=== PATIENT | male | born 1965 | race Native Hawaiian/Other Pacific Islander ===

== ENCOUNTER 2022-06-28 02:40 | Emergency (ER) | payer MEDICARE ==
[~2022-06-28] VITALS: Ht 157.5 cm; Wt 54.4 kg
[2022-06-28] MEDS ORDERED: MODA200 PO (02:58)
[2022-06-28] MEDS ORDERED: LISI5 PO (02:58)
[2022-06-28] MEDS ORDERED: ABILIFY MYCITE5 M2 PO (02:59)
[2022-06-28] MEDS ORDERED: BACLOFEN10 M1 PO (02:59)
[2022-06-28] MEDS ORDERED: ESCI10 PO (02:59)
== END 2022-06-28 06:19 | disposition home or self-care (01) ==
LOC: ER 02:40
DX: T17.928A Food in respiratory tract, part unspecified causing other injury, initial encounter (principal); X58.XXXA Exposure to other specified factors, initial encounter; G35 Multiple sclerosis; Z88.0 Allergy status to penicillin; Z79.899 Other long term (current) drug therapy
CPT/HCPCS: 71045

== ENCOUNTER 2024-07-12 09:55 | Inpatient (IN) | payer MEDICARE, OTHER ==
[2024-07-12] VITALS (17 sets, daily range): BP systolic 97–124; BP diastolic 63–93
[~2024-07-12] VITALS: Ht 172.7 cm; Wt 45.8 kg
[~2024-07-12 09:55] MED LIST: ABILIFY MYCITE5 M2 PO; BACLOFEN10 M1 PO; ESCI10 PO; LISI5 PO; MODA200 PO
[2024-07-12] MEDS ORDERED: NS 1,000 ML IV SCH ×3 (10:30→19:00)
[2024-07-12 10:52] LABS: BASOPHILS ABSOLUTE AUTO 0.05 K/mm3 (0.00-0.23); BASOPHILS PERCENT AUTO 0 % (0-2); EOSINOPHILS PERCENT AUTO 0 % (0-6); Hematocrit 47.3 % (37.0-53.0); Hemoglobin 14.7 g/dL (13.5-17.5); IMMATURE GRAN ABSOLUTE AUTO 0.14 K/mm3 (0.00-0.10); IMMATURE GRAN PERCENT AUTO 1 % (0-1); LYMPHOCYTES ABSOLUTE AUTO 0.77 K/mm3 (0.84-5.20); LYMPHOCYTES PERCENT AUTO 4 % (21-46); MONOCYTES ABSOLUTE AUTO 0.49 K/mm3 (0.16-1.47); MONOCYTES PERCENT AUTO 2 % (4-13); Mean Corpuscular HGB 27.8 pg (26.0-34.0); Mean Corpuscular HGB Conc 31.1 g/dL (31.5-36.5); Mean Corpuscular Volume 90 fL (80-100); Mean Platelet Volume 8.7 fL (9.1-12.4); NEUTROPHILS ABSOLUTE AUTO 18.56 K/mm3 (1.96-9.15); NEUTROPHILS PERCENT AUTO 93 % (41-73); Platelet Count 458 K/mm3 (150-400); RDW Coefficient Variation 14.5 % (11.7-14.2); RDW Standard Deviation 47.2 fL (35.1-46.3); Red Blood Cell Count 5.28 M/mm3 (4.30-5.90); White Blood Cell Count 20.01 K/mm3 (4.00-11.30)
[2024-07-12] MEDS ORDERED: Lactated Ringer's 1,000 ML IV ONE ×2 (11:10→11:50)
[2024-07-12] MEDS ORDERED: Cefepime HCl 2,000 MG in NS 100 ML IV ONE (11:10)
[2024-07-12] MEDS ORDERED: VANCOMYCIN HCL IV ONE (11:15)
[2024-07-12] MEDS ORDERED: NS IV ONE (11:15)
[2024-07-12 11:28] LABS: Albumin, Blood 3.1 g/dL (3.4-5.0); Albumin/Globulin Ratio 0.7 (0.8-1.8); Bilirubin, Total 0.7 mg/dL (0.1-1.0); Bun/Creatinine Ratio 19.7 (12.0-20.0); Calcium, Blood 10.1 mg/dL (8.5-10.1); Creatinine, Blood 2.13 mg/dL (0.60-1.20); Globulin, Blood 4.6 g/dL (2.2-4.0); Magnesium, Blood 4.1 mg/dL (1.6-2.4); Potassium, Blood 5.3 mmol/L (3.5-5.5); Total Protein, Blood 7.7 g/dL (6.4-8.2)
[2024-07-12] MEDS ORDERED: Vancomycin HCL 1,500 MG in NS 250 ML IV ONE (11:30)
[2024-07-12] MEDS ORDERED: ZINC50 M3 PO ×2 (12:17)
[2024-07-12] MEDS ORDERED: ERGO50000 PO ×2 (12:18)
[2024-07-12] MEDS ORDERED: ESCI20 PO ×2 (12:19)
[2024-07-12 12:29] LABS: Source, Urine Straight Cath
[2024-07-12 12:45] LABS: Appearance, Urine Turbid (Clear); Blood, Urine 4+ (Neg); Color, Urine Amber (P-Yellow); Glucose Qualitative, Urine Neg (Neg); Ketones, Urine 2+ (Neg); Leukocyte Esterase, Urine 2+ (Neg); Nitrite, Urine Pos (Neg); Protein, Urine 3+ (Neg); Urobilinogen, Urine 2+ (Normal)
[2024-07-12 13:16] LABS: Bilirubin, Urine 1+ (Neg)
[2024-07-12 13:17] LABS: Amorphous Mod (0-Heavy); Squamous Epithelial Cells Many /hpf (Few)
[2024-07-12 13:18] LABS: Calcium Oxalate Crystals Few /hpf; Transitional Epithelial Cells Mod /hpf (0-Rare); White Blood Cells, Urine 25-50 /hpf (0-5)
[2024-07-12 13:19] LABS: Bacteria Mod /hpf
[2024-07-12] MEDS ORDERED: Vasopressin 20 UNITS in NS 100 ML IV SCH (13:20)
[2024-07-12] MEDS ORDERED: propofoL 100 ML IV SCH (13:25)
[2024-07-12] MEDS ORDERED: FLU VACC TS2024-25(6MOS UP)/PF 45 MCG/0.5 ML SYRINGE IM SCH (14:45)
[2024-07-12] MEDS ORDERED: MetroNIDAZOLE 500MG/NS 100 ml 100 ML IV SCH (15:00)
[2024-07-12] MEDS ORDERED: Etomidate 2MG / ML 10ML Vial IV ONE (15:41)
[2024-07-12] MEDS ORDERED: Rocuronium Bromide 10 MG/ML 5ML Injection IV ONE ×2 (15:41→17:44)
[2024-07-12] MEDS ORDERED: Midazolam HCl 1MG / ML 2ML Vial IV ONE (15:41)
[2024-07-12] MEDS ORDERED: Ketamine HCl 100 MG / ML 5ML Vial IV ONE (17:44)
[2024-07-12] MEDS ORDERED: Cetylpyridinium Chloride 1 EA MISC MT SCH (18:20)
--- NOTE | 2024-07-12 18:27 | NUR ---
NUMEROUS PRESSURE INJURIES AND SITES OF SKIN DISPURTION. PHOTOGRAPHED AND PLACED IN CHART. DR CLEMENTS NOTIFIED.
[2024-07-12] MEDS ORDERED: Albumin (Human) 25gm/100ml 100 ML IV SCH (18:30)
[2024-07-12] MEDS ORDERED: Pantoprazole Sodium 40 MG Injection IV SCH (19:00)
[2024-07-12] MEDS ORDERED: Naphazoline/Phenir Opth Soln 15 ml BOTHEYES SCH (19:00)
--- NOTE | 2024-07-12 19:28 | NUR ---
SUMMARY: PT ARRIVED TO ICU AT 1634, PT ON VENTILATOR 16/450/5/25%, INCONTINENT OF LARGE AMOUNT OF LIQUID BROWN STOOL AROUND THE RECTAL TUBE. PT WITH MULTIPLE AREAS OF SKIN BREAKDOWN, PICTURES TAKEN. RECTAL TUBE REPLACED, PT GIVEN CHG BATH. NOREPINEPHRINE @ 10MCG, VASO @ 0.04, PROPOFOL @ 20MCG ALL VIA RIGHT IJ CENTRAL LINE. PIV IN ИВАН AND LFA, BOTH PATENT, FLUSH WELL. BRYANT WITH DARK CEDRIC RETURN. IN TO BEDSIDE, ANXIOUS, CONCERNED. EDUCATION GIVEN WITH ADMISSION QUESTIONS. HAS CONCERNS FOR DISCHARGE WITH TRAVEL, FOOD INSECURITY, ASSISTANCE WITH CARE FOR HER . ALBUMIN STARTED PER , DISCUSSION WITH ABOUT FEEDING TUBE PLACEMENT IN THE NEAR FUTURE. REPORT TO ALEX CLARK.
[2024-07-12] MEDS ORDERED: Cefepime HCl 1,000 MG in NS 100 ML IV SCH (21:00)
[2024-07-12 21:18] LABS: Campylobacter Sp Not Detected (NOT DETECT); Enteroaggregative E. coli-EAEC Detected (NOT DETECT); Enteropathogenic E. coli-EPEC Not Detected (NOT DETECT); Enterotoxigenic E. coli-ETEC Not Detected (NOT DETECT); Plesiomonas Shigelloides Not Detected (NOT DETECT); Salmonella Sp Not Detected (NOT DETECT); Vibrio Cholerae Not Detected (NOT DETECT); Vibrio Sp Not Detected (NOT DETECT); Yersinia Enterocolitica Not Detected (NOT DETECT)
[2024-07-12 21:19] LABS: Adenovirus F 40/41 Not Detected (NOT DETECT); Astrovirus Not Detected (NOT DETECT); Cryptosporidium Not Detected (NOT DETECT); Cyclospora Cayetanensis Not Detected (NOT DETECT); E. Coli O157 Not Detected (NOT DETECT); Entamoeba Histolytica Not Detected (NOT DETECT); Giardia Lamblia Not Detected (NOT DETECT); Norovirus GI/GII Not Detected (NOT DETECT); Rotavirus A Not Detected (NOT DETECT); Sapovirus Not Detected (NOT DETECT); Shiga Toxin-prod E. coli-STEC Not Detected (NOT DETECT); Shigella/Enteroin E. coli-EIEC Not Detected (NOT DETECT)
[2024-07-13] VITALS (59 sets, daily range): BP systolic 65–122; BP diastolic 48–79
[2024-07-13] MEDS ORDERED: Hydrogen Peroxide 1.5 % Solution MT SCH
--- NOTE | 2024-07-13 00:21 | NUR ---
THIS RN ASSUMED CARE OF PT AT 1900. PT IS VENTILATED AND SEDATED, PT WAS ABLE TO FOLLOW COMMANDS INTERMITTENTLY AND RESPOND TO PAINFUL STIMULI. PT HEART RATE IS IN THE 70-80s, BLOOD PRESSURE STABLE AND UNABLE TO ASSESS CHEST PAIN DUE TO SEDATION, PT ON DIRECTOR OF CREATIVE SERVICES. PT SOUNDS CLEAR, ON VENTILATOR TO PROTECT AIRWAY, SATTING >95%. PT DOES HAVE NUMEROUS PRESSURE WOUNDS, PICTURES ARE IN THE CHART AND PROVIDER IS AWARE. PT HAS OG TUBE TO LIS, COFFEE GROUND EMESIS IS NOTED IN THE TUBE, DR. CHÁVEZ NOTIFIED AND SAID TO SEE WHAT MORNING LABS COME BACK . NO OTHER INTERVENTIONS AT THIS TIME. PLAN OF CARE CONTINUED.
--- NOTE | 2024-07-13 01:05 | NUR ---
DR. CHÁVEZ WAS NOTIFIED PT WAS HAVING COFFEE GROUND EMESIS THROUGH OG TUBE, AND PT TESTED POSITIVE E.COLI IN STOOL. PROVIDER NOTIFIED, PROVIDER WILL LOOK AT PT CHART AND MAKE CHANGES NEEDED.
[2024-07-13 03:49] LABS: Hematocrit 27.3 % (37.0-53.0); Hemoglobin 9.1 g/dL (13.5-17.5); Mean Corpuscular HGB 27.7 pg (26.0-34.0); Mean Corpuscular HGB Conc 33.3 g/dL (31.5-36.5); Mean Platelet Volume 9.1 fL (9.1-12.4); Platelet Count 212 K/mm3 (150-400); RDW Coefficient Variation 14.5 % (11.7-14.2); RDW Standard Deviation 43.7 fL (35.1-46.3); Red Blood Cell Count 3.28 M/mm3 (4.30-5.90)
[2024-07-13 04:02] LABS: Mean Corpuscular Volume 83 fL (80-100)
[2024-07-13 04:11] LABS: BAND PERCENT MAN 26 % (0-8); BASOPHILS PERCENT MAN 0 % (0-2); EOSINOPHILS PERCENT MAN 0 % (0-6); LYMPHOCYTES ABSOLUTE MAN 0.93 K/mm3 (0.84-5.20); LYMPHOCYTES PERCENT MAN 8 % (21-46); MONOCYTES ABSOLUTE MAN 0.11 K/mm3 (0.16-1.47); MONOCYTES PERCENT MAN 1 % (4-13); MYELOCYTE ABSOLUTE MAN 0.23 K/mm3 (0.00-0.00); MYELOCYTE PERCENT MAN 2 % (0-0); NEUTROPHILS ABSOLUTE MAN 10.41 K/mm3 (1.96-9.15); SEG NEUTROPHILS PERCENT MAN 63 % (41-73); TOTAL CELLS COUNTED 100
[2024-07-13 04:42] LABS: Alanine Aminotransfer (ALT/SGP 246 U/L (12-78); Albumin, Blood 3.7 g/dL (3.4-5.0); Albumin/Globulin Ratio 1.9 (0.8-1.8); Alk Phos 70 U/L (50-136); Anion Gap 13 mmol/L (3-11); Aspartate Aminotrans (AST/SGOT 270 U/L (12-37); Bilirubin, Total 0.6 mg/dL (0.1-1.0); Blood Urea Nitrogen 34 mg/dL (8-24); Bun/Creatinine Ratio 37.1 (12.0-20.0); CO2, Blood 17 mmol/L (21-32); Calcium, Blood 7.9 mg/dL (8.5-10.1); Chloride, Blood 119 mmol/L (98-108); Creatinine, Blood 0.92 mg/dL (0.60-1.20); Glomerular Filtration Rate 97 (60-); Glucose, Blood 114 mg/dL (70-99); Potassium, Blood 3.4 mmol/L (3.5-5.5); Sodium, Blood 146 mmol/L (136-145); Total Protein, Blood 5.7 g/dL (6.4-8.2); Vancomycin, Random 19.6 ug/mL
[2024-07-13] MEDS ORDERED: Potassium Chl 20MEQ/Water100ML 100 ML IV SCH (04:55)
[2024-07-13] MEDS ORDERED: Potassium Chloride 40 MEQ in NS 250 ML IV ONE (05:00)
[2024-07-13] MEDS ORDERED: Acetaminophen 160MG / 5ML 10.15 UDC PT PRN (06:00)
--- NOTE | 2024-07-13 06:01 | NUR ---
PT SUMMARY PT IS LAYING IN BED, WITH FAMILY AT BEDSIDE. PT HGB DID GO FROM 14.7 TO 9.[address] CHÁVEZ NOTIFIED, REPEAT H&H TO BE DONE AT 0900. PT POTASSIUM CAME BACK 3.4, PROVIDER ORDERED 40MEQ OF POTASSIUM IV. PT TEMPERATURE IS ALSO STARTING TO RISE, PROVIDER NOTIFIED, NEW ORDERS PLACED. NO OTHER ACUTE EVENTS TO REPORT OVERNIGHT. PLAN OF CARE CONTINUED.
[2024-07-13] MEDS ORDERED: Enoxaparin 30 MG/0.3 ML SYR SC SCH (09:00)
[2024-07-13] MEDS ORDERED: Vancomycin HCL 500 MG in NS 250 ML IV SCH (09:00)
[2024-07-13 09:12] LABS: Hematocrit 26.8 % (37.0-53.0); Hemoglobin 8.9 g/dL (13.5-17.5); Mean Corpuscular HGB 28.2 pg (26.0-34.0); Mean Corpuscular HGB Conc 33.2 g/dL (31.5-36.5); Mean Corpuscular Volume 85 fL (80-100); Mean Platelet Volume 9.5 fL (9.1-12.4); Platelet Count 215 K/mm3 (150-400); RDW Coefficient Variation 14.6 % (11.7-14.2); RDW Standard Deviation 44.9 fL (35.1-46.3); Red Blood Cell Count 3.16 M/mm3 (4.30-5.90); White Blood Cell Count 12.28 K/mm3 (4.00-11.30)
[2024-07-13] MEDS ORDERED: NS 1,000 ML IV SCH (11:00)
[2024-07-13] MEDS ORDERED: Cefepime HCl 1,000 MG in NS 100 ML IV ONE (12:30)
[2024-07-13] MEDS ORDERED: Midodrine 5 MG Tab PT SCH (13:00)
--- NOTE | 2024-07-13 15:00 | NUR ---
SUMMARY: DOGISSELLHOFF PLACED @ 1430, PT LIBERATED FROM THE VENTILATOR. PROPOFOL OFF. PT TOLERATED PLACEMENT OF NGT AND EXTUBATION. HE REMAINS SOMNOLENT, MOANS A BIT, BACK TO ROOM, EXCITED TO SEE HIM. NC ON @ 2L, SATS 100%.
[2024-07-13] MEDS ORDERED: Cefepime HCl 2,000 MG in NS 100 ML IV SCH (21:00)
--- NOTE | 2024-07-13 22:54 | NUR ---
THIS RN ASSUMED CARE OF PT AT 1900. PT IS LAYING IN BED PEACEFULLY, WITH FAMILY PRESENT AT BEDSIDE. PT IS RESPONDING TO PAINFUL STIMULI, NOT SPEAKING MANY WORDS, BUT ABLE TO FOLLOW COMMANDS. PT HEART RATE IS IN THE 60s, BLOOD PRESSURE 95/73, ON 6 OF LEVO. PT SOUNDS CLEAR/DIMINISHED ON 2L NC SATTING >95%, NO OBJECTIVE S/S OF SHORTNESS OF BREATHE. PT CENTRAL LINE CLEAN/DRY/INTACT. PT BRYANT DRAINING TO GRAVITY. NO OTHER INTERVENTIONS AT THIS TIME, PLAN OF CARE CONTINUED.
[2024-07-13] MEDS ORDERED: D5W-1/2NS 1,000 ML IV SCH (23:35)
[2024-07-14] VITALS (35 sets, daily range): BP systolic 68–124; BP diastolic 50–84
--- NOTE | 2024-07-14 00:04 | NUR ---
PT BLOOD SUGAR 70, NOTIFIED, NEW ORDER OF D51/2 NS AT 75ML/HR X1 BAG, PT SHOULD BE STARTING TUBE FEEDINGS IN THE AM.
--- NOTE | 2024-07-14 05:19 | NUR ---
PT SUMMARY PT IS LAYING IN BED RESTING PEACEFULLY WITH FAMILY MEMBER AT BEDSIDE. NO NEW ACUTE EVENTS TO REPORT OVERNIGHT. PLAN OF CARE CONTINUED.
[2024-07-14 05:59] LABS: Hematocrit 26.3 % (37.0-53.0); Hemoglobin 8.6 g/dL (13.5-17.5); Mean Corpuscular HGB 27.9 pg (26.0-34.0); Mean Corpuscular HGB Conc 32.7 g/dL (31.5-36.5); Mean Corpuscular Volume 85 fL (80-100); Mean Platelet Volume 9.9 fL (9.1-12.4); Platelet Count 201 K/mm3 (150-400); RDW Coefficient Variation 15.1 % (11.7-14.2); RDW Standard Deviation 46.9 fL (35.1-46.3); Red Blood Cell Count 3.08 M/mm3 (4.30-5.90); White Blood Cell Count 10.85 K/mm3 (4.00-11.30)
[2024-07-14 06:28] LABS: BAND PERCENT MAN 23 % (0-8); NEUTROPHILS ABSOLUTE MAN 9.54 K/mm3 (1.96-9.15); SEG NEUTROPHILS PERCENT MAN 65 % (41-73); TOTAL CELLS COUNTED 100
[2024-07-14 06:29] LABS: BASOPHILS PERCENT MAN 0 % (0-2); EOSINOPHILS PERCENT MAN 1 % (0-6); LYMPHOCYTES ABSOLUTE MAN 0.86 K/mm3 (0.84-5.20); LYMPHOCYTES PERCENT MAN 8 % (21-46); MONOCYTES ABSOLUTE MAN 0.32 K/mm3 (0.16-1.47); MONOCYTES PERCENT MAN 3 % (4-13)
[2024-07-14 06:33] LABS: Albumin, Blood 2.5 g/dL (3.4-5.0); Anion Gap 10 mmol/L (3-11); Blood Urea Nitrogen 17 mg/dL (8-24); Bun/Creatinine Ratio 30.4 (12.0-20.0); CO2, Blood 17 mmol/L (21-32); Calcium, Blood 7.8 mg/dL (8.5-10.1); Chloride, Blood 121 mmol/L (98-108); Creatinine, Blood 0.56 mg/dL (0.60-1.20); Glomerular Filtration Rate 115 (60-); Glucose, Blood 105 mg/dL (70-99); Phosphorus, Blood 1.2 mg/dL (2.5-4.9); Potassium, Blood 2.8 mmol/L (3.5-5.5); Sodium, Blood 145 mmol/L (136-145)
[2024-07-14 08:53] LABS: Vancomycin, Trough 14.2 ug/mL (5.0-10.0)
[2024-07-14] MEDS ORDERED: Enoxaparin 40 MG/0.4 ML SYR SC SCH (09:00)
[2024-07-14] MEDS ORDERED: Potassium Phosphate Dibasic 30 MM in Dextrose 5% 500 ML IV ONE (12:20)
[2024-07-14] MEDS ORDERED: Potassium Chloride 20 MEQ/15 ML UDC PT SCH (13:00)
[2024-07-14] MEDS ORDERED: D5W-1/2NS 1,000 ML IV SCH (13:20)
[2024-07-14] MEDS ORDERED: Cefepime HCl 2,000 MG in NS 100 ML IV SCH (16:00)
--- NOTE | 2024-07-14 21:27 | NUR ---
THIS RN ASSUMED CARE OF PT AT 1900. PT IS ALERT AND ORIENTED X2, ABLE TO SAY NAME AND IS AWARE OF WHAT IS GOING ON. PT HEART RATE IS IN THE 60s, BLOOD PRESSURE STABLE AT 90/68, LEVO HAS BEEN TITRATED OFF, PT DENIES CHEST PAIN. PT SOUNDS CLEAR/DIMINISHED AND IS ON RA AND SATTING >95%, PT DENIES SHORTNESS OF BREATHE. PT HAS RECTAL TUBE DRAINING TO GRAVITY AND BRYANT DRAINING TO GRAVITY. PT CENTRAL LINE CLEAN/DRY/INTACT. PT ANSWERS BETTER TO YES/NO QUESTIONS AND DROWSY. NO OTHER INTERVENTIONS AT THIS TIME. TUBE FEEDS ARE GOING AT 10ML/HR OR TRICKLE FEEDS. POSSIBLE PEG TUBE PLACEMENT TOMORROW. PLAN OF CARE CONTINUED.
[2024-07-15] VITALS (25 sets, daily range): BP systolic 77–134; BP diastolic 60–90
[2024-07-15] MEDS ORDERED: NS 250 ML IV SCH (02:15)
[2024-07-15] MEDS ORDERED: NS 250 ML IV ONE (02:15)
[2024-07-15] MEDS ORDERED: Midodrine 5 MG Tab PT ONE (02:15)
[2024-07-15 03:58] LABS: Albumin, Blood 2.4 g/dL (3.4-5.0); Bilirubin, Total 0.4 mg/dL (0.1-1.0); Bun/Creatinine Ratio 22.9 (12.0-20.0); Calcium, Blood 7.7 mg/dL (8.5-10.1); Creatinine, Blood 0.39 mg/dL (0.60-1.20); Globulin, Blood 2.4 g/dL (2.2-4.0); Magnesium, Blood 1.8 mg/dL (1.6-2.4); Phosphorus, Blood 1.2 mg/dL (2.5-4.9); Potassium, Blood 3.6 mmol/L (3.5-5.5); Total Protein, Blood 4.8 g/dL (6.4-8.2)
[2024-07-15] MEDS ORDERED: Potassium Phosphate Dibasic 30 MM in Dextrose 5% 500 ML IV ONE (04:05)
--- NOTE | 2024-07-15 05:53 | NUR ---
PT SUMMARY PT BLOOD PRESSURE DID GET LOW, 78/62, MAP >65, DR. CHÁVEZ WAS NOTIFIED, PT GOT ANOTHER DOSE OF MIDODRINE AND A 250ML BOLUS OF NS. NO OTHER ACUTE EVETNS TO REPORT OVERNIGHT. PLAN OF CARE CONTINUED.
[2024-07-15 09:08] LABS: Hematocrit 26.2 % (37.0-53.0); Hemoglobin 8.7 g/dL (13.5-17.5); Mean Corpuscular HGB 28.3 pg (26.0-34.0); Mean Corpuscular HGB Conc 33.2 g/dL (31.5-36.5); Mean Corpuscular Volume 85 fL (80-100); Mean Platelet Volume 9.6 fL (9.1-12.4); Platelet Count 174 K/mm3 (150-400); RDW Coefficient Variation 15.4 % (11.7-14.2); RDW Standard Deviation 47.6 fL (35.1-46.3); Red Blood Cell Count 3.07 M/mm3 (4.30-5.90); White Blood Cell Count 8.75 K/mm3 (4.00-11.30)
[2024-07-15] MEDS ORDERED: Lactated Ringer's 1,000 ML IV SCH (14:10)
[2024-07-15] MEDS ORDERED: propofoL 20 ML IV ONE (14:38)
--- NOTE | 2024-07-15 14:45 | NUR ---
07/15/24 1445 Florentino Prasad History, Chart, Medications and Allergies reviewed before start of procedure. MONITOR INTACT WITH CONTINUOUS PULSE OXIMETRY, CONTINUOUS END TITAL CO2, AND INTERMITTENT BLOOD PRESSURE. 3-LEAD EKG REVIEWED WITH PHYSICIAN PRIOR TO START OF PROCEDURE. O2 VIA POM INTACT THROUGHOUT SEDATION/PROCEDURE.
[2024-07-15] MEDS ORDERED: Docusate Sodium Liquid 100 MG UDC PT PRN (14:50)
[2024-07-15] MEDS ORDERED: Bisacodyl 10 MG Supp PR PRN (14:50)
[2024-07-15] MEDS ORDERED: Magnesium Hydroxide Conc 10 ML UDC PT PRN (14:50)
--- NOTE | 2024-07-15 14:51 | NUR ---
PT TO UNIT VIA GURN. TRANSFERRED WITH SLIDER SHEET FROM ICU GURN. PT HAS MS AND IS CONTRACTURED. UNABLE TO HELP MOVE. History, Chart, Medications and Allergies reviewed before start of procedure. Pre-Op teaching done WITH PATIENT AND SPOUSE. PT NON VERBAL IN DAY SURGERY. WILL MOVE HEAD. SPOUSE AT BEDSIDE.
[2024-07-15] MEDS ORDERED: CefTRIAXone Sodium 1,000 MG in NS 100 ML IV SCH (16:00)
--- NOTE | 2024-07-15 18:35 | NUR ---
CARE ASSUMED AT 0700. CLINICAL PRESENTATION REMAINS GROSSLY THE SAME. TUBE FEEDS AND LOVENOX HELD FOR PEG TUBE PLACEMENT. DIETITICAN CONSULT ORDERED FOR TUBE FEED RECOMMENDATIONS. PEG TUBE PLACED WITHOUT DIFFICULTY; RECTAL TUBE HAD ZERO OUTPUT FOR SHIFT, GIVEN DOWNTREND, RECTAL TUBE WAS REMOVE. VSS, AFEBRILE. FAMILY AT BEDSIDE AND TUBE FEEDING EDUCATION GIVEN TO THEM. SPEECH CONSULTED FOR TOMORROW FOR SWALLOW EVAL TO ASSESS PATIENT'S PREVIOUS PRIMARY NUTRITION INTAKE. PATIENT NPO UNTIL 0600, D5 1/2NS @75 FOR BLOOD SUGAR CONTROL.
[2024-07-15] MEDS ORDERED: Lactobacil 2-S.Thermo-Bifido 1 1 Cap PT SCH (21:00)
[2024-07-15] MEDS ORDERED: Thiamine HCl 100 MG Tab PT SCH (21:00)
[2024-07-15] MEDS ORDERED: Arginine/Glutamine/Calcium Hmb 1 Packet PT SCH (21:00)
--- NOTE | 2024-07-15 21:44 | NUR ---
ASSUMED CARE PT APPEARS A&OX3; ABLE TO SAY YES OR NO (SLOW/SLURRED SPEECH). APPEARS TO NOD/SHAKE HEAD APPROPRIATELY. PT DENIES CP, SOB, AND NAUSEA. RESTING QUIETLY W/ AT BEDSIDE. VSS AT THIS TIME.
[2024-07-16] VITALS (7 sets, daily range): BP systolic 103–124; BP diastolic 73–92
[2024-07-16 03:27] LABS: BASOPHILS ABSOLUTE AUTO 0.03 K/mm3 (0.00-0.23); BASOPHILS PERCENT AUTO 0 % (0-2); EOSINOPHILS ABSOLUTE AUTO 0.12 K/mm3 (0.00-0.68); EOSINOPHILS PERCENT AUTO 1 % (0-6); Hematocrit 29.9 % (37.0-53.0); Hemoglobin 10.1 g/dL (13.5-17.5); IMMATURE GRAN ABSOLUTE AUTO 0.07 K/mm3 (0.00-0.10); IMMATURE GRAN PERCENT AUTO 1 % (0-1); LYMPHOCYTES ABSOLUTE AUTO 0.99 K/mm3 (0.84-5.20); LYMPHOCYTES PERCENT AUTO 10 % (21-46); MONOCYTES ABSOLUTE AUTO 0.53 K/mm3 (0.16-1.47); MONOCYTES PERCENT AUTO 6 % (4-13); Mean Corpuscular HGB 28.5 pg (26.0-34.0); Mean Corpuscular HGB Conc 33.8 g/dL (31.5-36.5); Mean Corpuscular Volume 85 fL (80-100); Mean Platelet Volume 9.3 fL (9.1-12.4); NEUTROPHILS ABSOLUTE AUTO 7.95 K/mm3 (1.96-9.15); NEUTROPHILS PERCENT AUTO 82 % (41-73); Platelet Count 194 K/mm3 (150-400); RDW Coefficient Variation 15.1 % (11.7-14.2); RDW Standard Deviation 46.7 fL (35.1-46.3); Red Blood Cell Count 3.54 M/mm3 (4.30-5.90); White Blood Cell Count 9.69 K/mm3 (4.00-11.30)
[2024-07-16 03:53] LABS: Albumin, Blood 2.4 g/dL (3.4-5.0); Bilirubin, Total 0.3 mg/dL (0.1-1.0); Bun/Creatinine Ratio 9.5 (12.0-20.0); Calcium, Blood 7.9 mg/dL (8.5-10.1); Creatinine, Blood 0.42 mg/dL (0.60-1.20); Globulin, Blood 2.5 g/dL (2.2-4.0); Magnesium, Blood 1.8 mg/dL (1.6-2.4); Phosphorus, Blood 1.7 mg/dL (2.5-4.9); Potassium, Blood 3.9 mmol/L (3.5-5.5); Total Protein, Blood 4.9 g/dL (6.4-8.2)
[2024-07-16] MEDS ORDERED: Potassium Phosphate Dibasic 15 MM in Dextrose 5% 250 ML IV ONE (05:30)
--- NOTE | 2024-07-16 06:03 | NUR ---
SHIFT SUMMARY PT RESTED QUIETLY T/O NIGHT. PT THIS AM SPEECH WAS MORE CLEAR AND LESS SLURRED THAN START OF SHIFT (STILL SLOW). VSS; MAP >65. PT CONTINUES TO DENY PAIN (EXCEPT WHEN CLEANING PT AFTER BM D/T CONTRACTURES). SLEPT AT BEDSIDE. NO ACUTE EVENTS OVERNIGHT.
--- NOTE | 2024-07-16 12:50 | NUR ---
AM NOTE... ASSUMED CARE OF PT AT 0700, PT IS A&Ox4, AT THE BEDSIDE, PT'S IS VERY ANXIOUS AND CAN BE VERBALLY AGGRESIVE TWARDS STAFF. PT'S VS STABLE AT THE TIME OF THIS ASSESSMENT. PT IS ON RA WITH O2 SATS>95% L/S CLEAR T/O. PT IS SR IN THE 70'S. BP STABLE. PEG TUBE IS PATENT BOLUS FEEDS STARTED AT 1100. AFTER BOLUS FEED WAS DONE PT STATED HIS STOMACH FELT "STRANGE" BUT NOT PAINFUL. WILL CONTINUE TO MONITOR.
[2024-07-16] MEDS ORDERED: Midodrine 5 MG Tab PT SCH (13:00)
[2024-07-16] MEDS ORDERED: Potassium Phosphate Dibasic 15 MM in Dextrose 5% 250 ML IV STA (16:42)
[2024-07-16] MEDS ORDERED: Midodrine 5 MG Tab PT PRN (17:10)
[2024-07-16] MEDS ORDERED: Metoclopramide HCl 10 MG Tab PT ONE (17:15)
--- NOTE | 2024-07-16 18:45 | NUR ---
SHIFT SUMMARY... PT'S VS STABLE T/O THIS SHIFT. MIDODRINE WAS NOT GIVEN ALL DAY AND WAS D/C'D THIS EVENING, PRN ORDERS IN THE EMAR FOR SBPs <95. PT'S BOLUS TUBE FEEDS WERE STARTED PER ORDERS, APROX 2HRS AFTER THE FRI FEED WAS DONE THE PT HAD COPIOUS PORJECTILE EMESIS ESTIMATED >600MLS OF BILE. PROVIDER WAS NOTIFIED. NEW ORDERS FOR REGALEN PRIOR TO FEEDS. THIS WAS STARTED PER ORDERS. BRYANT IS PATENT AND DRAINING TO GRAVITY. REPORT WILL BE GIVEN TO ONCOMING RN.
--- NOTE | 2024-07-16 20:00 | NUR ---
ASSUMED CARE OF PT AT 1900. REPORT RECEIVED AT BEDSIDE. PT PRESENTS IN BED. MAKES GOOD EYE CONTACT. DIFFICULT TO UNDERSTAND SPEAK. PT'S AT BEDSIDE. SHE IS ABLE TO ASSIST WITH UNDERSTANDING PT. WILL REVIEW CHART AND PLAN OF CARE FOR THIS PT.
[2024-07-16] MEDS ORDERED: Metoclopramide HCl 10 MG Tab PT PRN (21:00)
[2024-07-17] VITALS (81 sets, daily range): BP systolic 66–197; BP diastolic 44–185
--- NOTE | 2024-07-17 02:15 | NUR ---
PT TRANSFERRED TO ROOM 326 AT 0145. ALL BELONGINGS SENT TO ROOM. ACCOMPANIES PT. PT SLIDE TRANSFERRED TO BED. REPORT HAS BEEN GIVEN TO ALEX SIEGEL.
[2024-07-17] MEDS ORDERED: Metoclopramide HCl 5MG / ML 2ML Vial IV PRN (05:10)
[2024-07-17] MEDS ORDERED: Ondansetron HCl 2 MG / ML 2ML Vial IV PRN (05:10)
[2024-07-17] MEDS ORDERED: NS 500 ML IV ONE (05:23)
--- NOTE | 2024-07-17 05:28 | NUR ---
REPORT RECEIVED FROM ALEX SIEGEL. PT HAS VOMITED SEVERAL TIMES WITH POSSIBLE ASPIRATION. PENDING PT TRANSFER BACK TO ROOM ICU 6
[2024-07-17] MEDS ORDERED: NS 1,000 ML IV ONE ×2 (05:50→05:55)
[2024-07-17] MEDS ORDERED: NS 1,000 ML IV SCH (06:00)
[2024-07-17] MEDS ORDERED: Midazolam HCL 50 MG in NS 40 ML IV PRN (06:00)
[2024-07-17 06:20] LABS: BASOPHILS ABSOLUTE AUTO 0.06 K/mm3 (0.00-0.23); BASOPHILS PERCENT AUTO 1 % (0-2); EOSINOPHILS ABSOLUTE AUTO 0.01 K/mm3 (0.00-0.68); EOSINOPHILS PERCENT AUTO 0 % (0-6); Hematocrit 40.7 % (37.0-53.0); Hemoglobin 12.7 g/dL (13.5-17.5); IMMATURE GRAN ABSOLUTE AUTO 0.15 K/mm3 (0.00-0.10); IMMATURE GRAN PERCENT AUTO 2 % (0-1); LYMPHOCYTES ABSOLUTE AUTO 0.94 K/mm3 (0.84-5.20); LYMPHOCYTES PERCENT AUTO 10 % (21-46); MONOCYTES ABSOLUTE AUTO 0.55 K/mm3 (0.16-1.47); MONOCYTES PERCENT AUTO 6 % (4-13); Mean Corpuscular HGB 27.7 pg (26.0-34.0); Mean Corpuscular HGB Conc 31.2 g/dL (31.5-36.5); Mean Corpuscular Volume 89 fL (80-100); Mean Platelet Volume 9.4 fL (9.1-12.4); NEUTROPHILS ABSOLUTE AUTO 8.07 K/mm3 (1.96-9.15); NEUTROPHILS PERCENT AUTO 83 % (41-73); Platelet Count 241 K/mm3 (150-400); RDW Coefficient Variation 15.1 % (11.7-14.2); RDW Standard Deviation 49.1 fL (35.1-46.3); Red Blood Cell Count 4.59 M/mm3 (4.30-5.90); White Blood Cell Count 9.78 K/mm3 (4.00-11.30)
--- NOTE | 2024-07-17 06:22 | NUR ---
TRANSFER TO ICU/RAPID RESPONSE RECEIVED PT FROM THE ICU AT 0220 WITH STABLE VITAL SIGNS (SEE VITALS DOCUMENTATION). ON TRANSFER HE HAD A SMALL EMESIS OF TUBE FEED WITH NO CHANGE IN HIS RESPIRATORY STATUS. EDUCATED PT AND PTS THAT PT WOULD HAVE TO SIT UP IN BED, EVEN THOUGH HE PRERFERS TO LAY FLAT. DISCUSSED WITH PT AND PTS THAT IT IS NOT UNCOMMON FOR PATIENTS TO HAVE TO ADJUST TO TUBE FEEDS AND THAT WE WOULD HOLD HIS MORNING TUBE FEED AND GIVE HIS STOMACH A BREAK. AT 0450 PT STARTED VOMITING AGAIN AND HAD TWO SMALL EPISODES. WHILE CALLING MD TO GET ORDERS FOR ZOFRAN AND IV REGLAN PT HAD ONE LARGE EMESIS WITH IMMEDIATE CHANGE IN HIS RESPIRATORY STATUS. HE WENT FROM 98% ON ROOM AIR TO 88% ON ROOM AIR WITH HIS RESPIRATORY RATE 38-42 AND HIS HEART RATE JUMPED TO 138-150. PT PLACED ON NON-REBREATHER AT 15L AND RAPID RESPONSE CALLED. BLOOD PRESSURE WENT DOWN TO 92/54, HR 149, RR 38, CHEST X-RAY DONE STAT, AND PATIENT TRANSFERRED TO ICU.
[2024-07-17] MEDS ORDERED: Ipratropium/Albuterol SulF 2.5-0.5MG/3 ML Amp INH SCH (06:30)
[2024-07-17] MEDS ORDERED: Albuterol 2.5 MG/3 ML VIAL INH PRN (06:30)
[2024-07-17 06:37] LABS: Albumin, Blood 2.4 g/dL (3.4-5.0); Bilirubin, Total 0.3 mg/dL (0.1-1.0); Bun/Creatinine Ratio 19.5 (12.0-20.0); Calcium, Blood 7.7 mg/dL (8.5-10.1); Creatinine, Blood 0.51 mg/dL (0.60-1.20); Globulin, Blood 2.4 g/dL (2.2-4.0); Magnesium, Blood 1.6 mg/dL (1.6-2.4); Phosphorus, Blood 3.1 mg/dL (2.5-4.9); Potassium, Blood 4.8 mmol/L (3.5-5.5); Total Protein, Blood 4.8 g/dL (6.4-8.2)
--- NOTE | 2024-07-17 07:26 | NUR ---
PT TRANSFERS IN TO ICU 6 FROM ROOM 326 S/P VPK TEACHER. PT TO ROOM AT 0515. DR PEREZ COMES TO ROOM, AND PT WAS INTUBATED. OF NOTE: PRIOR TO INTUBATION, PEG TUBE HOOKED TO LOW WALL SUCTION WITH RETURN OF > 900 ML GASTRIC CONTENT. WHEN NO LONGER DRAINING, THEN PATIENT WAS INTUBATED. PT HAS RECEIVED A TOTAL OF 1 LITER NS. BLOOD PRESSURES HAVE RESPONDED WITH MAP > 65. CALL MADE TO DR ELLISON TO INFORM HIM THAT PREANALYTICS TEAM LEAD HAS BEEN CONSULTED EARLIER IN PT'S STAY AND GAVE UPDATE OF THIS MORNINGS EPISODE. PT'S BROUGHT BACK TO ROOM. REPORT GIVEN TO ALEX SHARP
[2024-07-17] MEDS ORDERED: Sodium Bicarb 8.4% Inj 100 MEQ in Sodium Chloride 0.45% 1,000 ML IV SCH (07:30)
[2024-07-17] MEDS ORDERED: Albumin (Human) 25gm/100ml 100 ML IV ONE (07:30)
[2024-07-17] MEDS ORDERED: Cefepime HCl 1,000 MG in NS 100 ML IV SCH (08:00)
[2024-07-17] MEDS ORDERED: Cetylpyridinium Chloride 1 EA MISC MT SCH (08:00)
[2024-07-17] MEDS ORDERED: Protein Supplement 30 ML UD PT SCH (09:00)
[2024-07-17] MEDS ORDERED: FentaNYL Citrate 50 MCG/ML 2 ML Injection ONE (09:55)
[2024-07-17] MEDS ORDERED: FentaNYL Citrate 50 MCG/ML 2 ML Injection IV ONE (09:55)
[2024-07-17] MEDS ORDERED: propofoL 100 ML IV SCH (10:15)
[2024-07-17] MEDS ORDERED: Hydrogen Peroxide 1.5 % Solution MT SCH (12:00)
--- NOTE | 2024-07-17 14:58 | NUR ---
Met with Allison at the bedside. She states she is the patient's spouse, but states she isn't in the mood to talk right now and asked for a business card. I left her with a card, and invited her to call anytime. Reiterated my goal is to provide an extra layer of support for her. She thanked me and states she will call "later."
--- NOTE | 2024-07-17 18:27 | NUR ---
SHIFT SUMMARY PATIENT REMAINED INTUBATED THIS SHIFT. UPON ARRIVAL TO SHIFT PAITENT +NAUSEA AND APPEAR UNCOMFORTABLE EVIDENCE BY GAGGING, ORAL SECREATIONS AND FREQUENT MOVEMENT. PATIENT ABLE TO NOD HIS HEAD YES AND NO ANSWERING QUESTIONS APPROPRIATELY. FRIEND HILDA ARRIVED AND PATIENT INDICATED VIA A HEAD NOD LEFT TO RIGHT THAT HE DID NOT WANT HER BROUGHT BACK AT THAT TIME. MEDICATIONS STARTED. ARGININE POWDER HELD DUE TO NAUSEA AND ABDOMINAL DISCOMFORT. PEG CLAMPED AFTER MEDICATIONS AND THEN PLACED TO INTERMITTENT SUCTION DUE TO ON GOING NAUSEA. MEDICATIONS ADMINISTERED FOR NASUESA SEE MAR. PATIENT PLACED ON SEDATION. CENTRAL LINE WAS PLACED BY DR ELLISON FOR ADMINISTERATION OF VASOACTIVE MEDICATIONS DUE TO HYPOTENSION. MEDICATION TITRATED WITH GOAL OF MAP ABOVE 65. LUNGS REMAIN CLEAR ANTERIORLY AND COARSE IN BILATERAL POSTERIOR BASES. ABDOMEN IS MILDLY DISTENDED, PATIENT HAD 1 SMALL BM TODAY, SOFT FLUFFY RAGGED. GENERALIZED EDEMA PRESENT. DRESSINGS TO L HIP, R BUTTOCK AND COCCYX REMAIN C/D/I. CT OF ABDOMEN AND PELVIS COMPLETED. DR ELLISON NOTIFIED ABOUT NAUSEA PER DR ELLISON PEG TUBE FEEDS HELD FOR TODAY.
--- NOTE | 2024-07-17 18:50 | NUR ---
[facility] FAMILY MEMBERS CALLED TODAY IDENTIFYING THEMSELVES PT MOTHER AND SISTER. DISCUSSED WITH HILDA WHO IS LISTED HIS EMERGENCY CONTACT AND OK TO UPDATE MOTHER BUT STATED THAT SHE WOULD UPDATE HIS SISTER. ADDED MOTHER LYLY TO HIS CONTACT LIST. HILDA PRESENT MOST OF THE DAY. [facility] ATTEMPTS WERE MADE TO PROVIDE EDUCATION TO HILDA. WHEN SPEAKING WITH HER LATER IN THE AFTERNOON SHE DENIED TEACHING OR CARE AND STATED SHE FELT THERE WAS A LACK OF COMMUNICATION. I REMINDED PATIENT I PROVIDED [facility] UPDATES THROUGH OUT THE DAY AND PROVIDED EDUCATION ON MANY TOPICS CARE WAS TAKEN TO AGAIN RE EDUCATE AND UPDATE ACCORDINGLY OFFERED FOR PATIENT TO ASSIST IN ADL CARES FOR REPOSITIONING AND SHE DECLINED.
--- NOTE | 2024-07-17 18:55 | NUR ---
ETHICS FAMILY DYNAMICS NOT CLEARLY DEFINED. PT HAS CAREGIVER/ FRIEND LISTED ON FACE SHEET "HILDA", UNSURE IF THEY ARE OR IF SHE IS POA, NO PAPERWORK PROVIDED TO THIS RN NOR IN CHART. THIS AFTERNOON PTS MOTHER "LYLY" CALLED, SHE WAS VERY EMOTIONAL AND CONCERNED ABOUT HER SON. LYLY DID NOT WANT TO "ROCK THE BOAT" SHE DOESN'T WANT HILDA TO REVOKE PERMISSIONS FOR HER TO RECEIVED UPDATES/ COME SEE HER SON. LYLY IS UNSURE IF HILDA HAS POA & STATES THEY HAVE BEEN DATING FOR MANY YEARS BUT AREN'T , MAYBE "COMMON-LAW ". LYLY ALSO EXPRESSING CONCERNS THAT APPROPRIATE CARE HAS NOT BEEN GIVEN TO TIFFANIE BY CAREGIVER HILDA, STATES HE HAS LOST A LARGE AMNT OF WEIGHT AND IS SUFFERING FROM MULTIPLE WOUNDS. ONCE AGAIN, LYLY DOES NOT WANT TO "ROCK THE BOAT", BUT WAS VERY CONCERNED FOR MONTE.
--- NOTE | 2024-07-17 19:55 | NUR ---
ASSUMED CARE OF PT AT 1900. REPORT RECEIVED AT BEDSIDE. PT PRESENTS IN BED - INTUBATED. MAINTAINS SATURATIONS > 90 PERCENT SATURATIONS. PT IN NO APPARENT DISTRESS. PT'S SIGNIFICANT OTHER COMES BACK TO SEE PT. SHE REMAINS APPROPRIATE. WILL REVIEW CHART AND PLAN OF CARE FOR THIS PT.
[2024-07-18] VITALS (87 sets, daily range): BP systolic 83–124; BP diastolic 39–79
[2024-07-18 04:55] LABS: Hematocrit 29.8 % (37.0-53.0); Mean Corpuscular HGB 28.5 pg (26.0-34.0); Mean Corpuscular HGB Conc 33.6 g/dL (31.5-36.5); Mean Corpuscular Volume 85 fL (80-100); Mean Platelet Volume 9.3 fL (9.1-12.4); Platelet Count 174 K/mm3 (150-400); RDW Coefficient Variation 15.4 % (11.7-14.2); RDW Standard Deviation 47.3 fL (35.1-46.3); Red Blood Cell Count 3.51 M/mm3 (4.30-5.90); White Blood Cell Count 14.33 K/mm3 (4.00-11.30)
[2024-07-18 05:18] LABS: Albumin, Blood 2.3 g/dL (3.4-5.0); Bilirubin, Total 0.4 mg/dL (0.1-1.0); Bun/Creatinine Ratio 30.5 (12.0-20.0); Calcium, Blood 7.8 mg/dL (8.5-10.1); Creatinine, Blood 0.59 mg/dL (0.60-1.20); Globulin, Blood 2.3 g/dL (2.2-4.0); Magnesium, Blood 1.5 mg/dL (1.6-2.4); Phosphorus, Blood 1.5 mg/dL (2.5-4.9); Potassium, Blood 3.8 mmol/L (3.5-5.5); Total Protein, Blood 4.6 g/dL (6.4-8.2)
[2024-07-18 05:36] LABS: BAND PERCENT MAN 3 % (0-8); BASOPHILS PERCENT MAN 0 % (0-2); EOSINOPHILS ABSOLUTE MAN 0.14 K/mm3 (0.00-0.68); EOSINOPHILS PERCENT MAN 1 % (0-6); LYMPHOCYTES ABSOLUTE MAN 1.43 K/mm3 (0.84-5.20); LYMPHOCYTES PERCENT MAN 10 % (21-46); MONOCYTES ABSOLUTE MAN 0.71 K/mm3 (0.16-1.47); MONOCYTES PERCENT MAN 5 % (4-13); NEUTROPHILS ABSOLUTE MAN 12.03 K/mm3 (1.96-9.15); SEG NEUTROPHILS PERCENT MAN 81 % (41-73); TOTAL CELLS COUNTED 100
--- NOTE | 2024-07-18 06:30 | NUR ---
PT HAS BEEN TURNED Q 2 HOURS WITH USE OF MULTIPLE PILLOWS TO PROTECT PRESSURE POINTS. SEDATION VACATION DONE FOR APPROX 35 MINUTES THIS MORNING. DURING THIS TIME, PT WAS ABLE TO NOD HIS HEAD 'YES' AND 'NO' TO QUESTIONS. WAS ABLE TO SQUEEZE FINGERS WITH HIS LEFT HAND. HAVE SUCTIONED PT PER ETT OCCASSIONALLY WITH RETURN OF CLEAR SECRETIONS. HAS HAD 400 ML OUTPUT FROM PEG TUBE PER INTERMITTANT LOW WALL SUCTION. HAVE HELD OFF TUBE FEEDING. HAVE ADMINISTERED REGLAN TO ASSIST WITH PERISTOLSIS. WILL CONTINUE TO MONITOR PT, AND WILL REPORT OFF TO ONCOMING RN.
[2024-07-18] MEDS ORDERED: Mag Sulfate 1 GM/D5% 100ML 100 ML IV STA (08:44)
[2024-07-18] MEDS ORDERED: Potassium Phosphate Dibasic 30 MM in Dextrose 5% 500 ML IV STA (08:45)
[2024-07-18] MEDS ORDERED: NS 250 ML IV PRN (08:55)
[2024-07-18] MEDS ORDERED: Metoclopramide HCl 5MG / ML 2ML Vial IV SCH (12:00)
--- NOTE | 2024-07-18 18:44 | NUR ---
Summary. Pt remains intubated and sedated. No acute events this shift. Levophed remains on at 12 mcg/min, no change this shift. Sedation unchanged. Pt had high residuals this am, reglan given with some reduction in residuals noted, attempted to restart TF but bile noted in pt mouth this afternoon so TF paused again and PEG tube connected to low intermittent suction. Rectal tube placed for liquid bowel movements. at bedside most of shift assisting with pt turns for comfort, updated by physician on pt condition. See chart for further details.
[2024-07-18] MEDS ORDERED: Dextrose 10% 1,000 ML IV SCH (18:55)
[2024-07-18] MEDS ORDERED: Dextrose 50% 50 ML Vial IV ONE (19:00)
--- NOTE | 2024-07-18 20:00 | NUR ---
ASSUMED CARE OF PT AT 1900. REPORT RECEIVED. PT GIVEN 50 ML D50W AND STARTED D10W PER ORDERS. PT REMAINS ON 25 MCG'S PROPOFOL PER KG/MIN. TOLERATING VENT WELL. WILL REVIEW CHART AND PLAN OF CARE FOR THIS PT
--- NOTE | 2024-07-18 23:37 | NUR ---
TEMP PROBE BRYANT SHOWS TEMP AT 101.7. TEMPORAL WAS 99.8. ADMINISTERED 650 MG TYLENOL WITH PENDING RESULTS. PT HAS APPROX 300 ML GASTRIC OUTPUT VIA PEG TUBE. CLAMPED AFTER TYLENOL GIVEN. WILL KEEP CLAMPED FOR APPROX 1 HOUR. AND RECHECK. D10W INFULING AT 75 ML PER HOUR PER ORDERS. WILL DO MIDNIGHT GLUCOSE CHECK. PT'S ROOMS IN. HAS ASKED QUESTIONS OF PLANS AND OF MEDICATIONS MONTE IS RECEIVING. TEACHING DONE. WILL CONTINUE TO MONITOR.
[2024-07-19] VITALS (84 sets, daily range): BP systolic 88–116; BP diastolic 53–78
[2024-07-19] MEDS ORDERED: NS 500 ML IV SCH (04:40)
[2024-07-19 05:36] LABS: BASOPHILS ABSOLUTE AUTO 0.04 K/mm3 (0.00-0.23); BASOPHILS PERCENT AUTO 0 % (0-2); EOSINOPHILS ABSOLUTE AUTO 0.18 K/mm3 (0.00-0.68); EOSINOPHILS PERCENT AUTO 1 % (0-6); Hematocrit 26.1 % (37.0-53.0); Hemoglobin 8.6 g/dL (13.5-17.5); IMMATURE GRAN ABSOLUTE AUTO 0.13 K/mm3 (0.00-0.10); IMMATURE GRAN PERCENT AUTO 1 % (0-1); LYMPHOCYTES PERCENT AUTO 6 % (21-46); MONOCYTES ABSOLUTE AUTO 0.58 K/mm3 (0.16-1.47); MONOCYTES PERCENT AUTO 4 % (4-13); Mean Corpuscular Volume 85 fL (80-100); Mean Platelet Volume 9.5 fL (9.1-12.4); NEUTROPHILS PERCENT AUTO 88 % (41-73); Platelet Count 198 K/mm3 (150-400); RDW Coefficient Variation 15.3 % (11.7-14.2); RDW Standard Deviation 47.4 fL (35.1-46.3); Red Blood Cell Count 3.07 M/mm3 (4.30-5.90); White Blood Cell Count 14.63 K/mm3 (4.00-11.30)
[2024-07-19 05:58] LABS: Bun/Creatinine Ratio 26.9 (12.0-20.0); Calcium, Blood 7.3 mg/dL (8.5-10.1); Creatinine, Blood 0.56 mg/dL (0.60-1.20); Magnesium, Blood 1.5 mg/dL (1.6-2.4); Phosphorus, Blood 2.1 mg/dL (2.5-4.9); Potassium, Blood 3.7 mmol/L (3.5-5.5)
--- NOTE | 2024-07-19 06:54 | NUR ---
HAVE CONTINUED LEVOPHED AT 12 MCG'S/MIN TO KEEP MAP > 65. PROPOFOL AT 25 MCG'S/KG/MIN FOR SEDATION. PT HAS BEEN TURNED Q 2 HOURS. MULTIPLE PILLOWS SECONDARY TO CONTRACTURES AND BINDU PROMININCE. ROOMS IN FOR THE NIGHT. HAS ASKED QUESTION CONCERNING PT'S PROGRESS AND PLAN OF CARE. THOSE ANSWERED FOR HER. PT HAS 200 ML LIQUID STOOL. 600 ML OF GASTRIC OUTPUT NOTED EARLIER IN NIGHT. REPORT GIVEN TO ALEX HAYNES.
[2024-07-19] MEDS ORDERED: TPN Consult Notification XX ONE ×2 (11:10→12:10)
[2024-07-19] MEDS ORDERED: Silver Sulfadiazine 1% Cream 25 APPLIC/25 GM Tube TOP PRN (11:15)
[2024-07-19 11:29] LABS: Triglycerides 33 mg/dL (30-160)
[2024-07-19] MEDS ORDERED: Mag Sulfate 1 GM/D5% 100ML 100 ML IV STA (12:18)
[2024-07-19] MEDS ORDERED: Sodium Phosphate 10 MM in Dextrose 5% 250 ML IV STA (12:18)
[2024-07-19] MEDS ORDERED: Parenteral Electolytes 40 ML,Potassium Phosphate Dibasic 30 MM,Multivitamins 10 ML,ZINC... IV SCH ×2 (17:00)
--- NOTE | 2024-07-19 18:30 | NUR ---
Summary. Pt remains intubated and sedated. No acute changes. TPN started today for nutrition. at bedside during shift, given ongoing updates. See chart for further details.
[2024-07-20] VITALS (75 sets, daily range): BP systolic 76–121; BP diastolic 54–95
[2024-07-20 04:24] LABS: BASOPHILS ABSOLUTE AUTO 0.03 K/mm3 (0.00-0.23); BASOPHILS PERCENT AUTO 0 % (0-2); EOSINOPHILS ABSOLUTE AUTO 0.23 K/mm3 (0.00-0.68); EOSINOPHILS PERCENT AUTO 1 % (0-6); Hematocrit 26.6 % (37.0-53.0); Hemoglobin 8.7 g/dL (13.5-17.5); IMMATURE GRAN ABSOLUTE AUTO 0.19 K/mm3 (0.00-0.10); IMMATURE GRAN PERCENT AUTO 1 % (0-1); LYMPHOCYTES ABSOLUTE AUTO 0.95 K/mm3 (0.84-5.20); LYMPHOCYTES PERCENT AUTO 6 % (21-46); MONOCYTES PERCENT AUTO 4 % (4-13); Mean Corpuscular HGB 27.9 pg (26.0-34.0); Mean Corpuscular HGB Conc 32.7 g/dL (31.5-36.5); Mean Corpuscular Volume 85 fL (80-100); Mean Platelet Volume 9.3 fL (9.1-12.4); NEUTROPHILS PERCENT AUTO 88 % (41-73); Platelet Count 242 K/mm3 (150-400); RDW Coefficient Variation 14.9 % (11.7-14.2); RDW Standard Deviation 46.5 fL (35.1-46.3); Red Blood Cell Count 3.12 M/mm3 (4.30-5.90)
[2024-07-20 04:42] LABS: Bun/Creatinine Ratio 35.8 (12.0-20.0); Calcium, Blood 7.5 mg/dL (8.5-10.1); Creatinine, Blood 0.53 mg/dL (0.60-1.20); Magnesium, Blood 1.9 mg/dL (1.6-2.4); Phosphorus, Blood 2.5 mg/dL (2.5-4.9); Potassium, Blood 3.9 mmol/L (3.5-5.5)
--- NOTE | 2024-07-20 05:27 | NUR ---
Shift was uneventful. Patient is alert to verbal stimuli and is oriented to self and to his . Unable to communicate further. He remains intubated and sedated with Propofol. Lungs sound clear in the uppers and dim in the bases, SPO2 remains >96%. Patient's on monitoring specialist in sinus rhythm w/ a rate in 70s-80s. He has maintained a MAP >60 on Levophed gtt. Pt has a marc catheter with adequate output and a rectal tube. His peg tube is set to LIS and has had 700ml of bile out between day and sed high school teacher. has remained at bedside and is pleasant and cooperative with pt care.
[2024-07-20] MEDS ORDERED: TPN Consult Notification XX ONE (09:15)
[2024-07-20] MEDS ORDERED: Parenteral Electolytes 40 ML,Potassium Phosphate Dibasic 30 MM,Multivitamins 10 ML,ZINC... IV SCH (17:00)
--- NOTE | 2024-07-20 18:32 | NUR ---
Summary. Pt currently off sedation. Tolerating vent well, on spontaneous currently, see RT charting for settings. Pt awake, responding to questions and following commands. Levo titrated down today, see flowsheet. Trickle feeds started, see dietitian assessment for instructions. No acute events this shift, see chart for further details.
--- NOTE | 2024-07-20 21:12 | NUR ---
ASSUMPTION OF CARE/ASSESSMENT: ASSUMED CARE OF PT AT 1900; REPORT RECIEVED FROM ABEL JOHNSON. PT REMAINS INTUBATED AND STARTED THE SHIFT ON SPONT. SETTINGS ON VENTILATOR. PT TOLERATING WELL, BUT OBSERVED TO BE INCREASINGLY RESTLESS ANF DECISION MADE TO SWITCH BACK TO MECHANICAL VENTILATION. CURRENT SETTINGS ARE AC/PC 10/5, RATE 14, FIO2 30% AND TV 400-500. LUNG SOUNDS ARE COARSE IN THE UPPER LOBES, DIM IN BASES AND SPO2 100%. PRIOR TO PROPOFOL BEING RESTARTED, PT ALERT, FOLLOWING DIRECTIONS AND NODDING HEAD YES/NO TO QUESTIONS. PROPOFOL RESTARTED AND CURRENTLY AT 25 MCG. PT REMAINS SR ON MONITOR WITH HR 90'S, MAP 65<, SBP 90'S AND LEVO GTT @ 4 MCG. PEG TUBE INFUSING VHP @ 10 MLS/HR; START OF SHIFT RESIDUALS WERE LESS THAN 10 MLS, ABD SOFT AND NON-TENDER AND NO GASTRIC CONTENTS NOTED IN ORAL SECRETIONS. RECTAL TUBE PATENT AND DRAINING TO GRAVITY. TEMP BRYANT PATENT AND DRAINING TO GRAVITY; TEMP AT 100.3. PIV TO NIMISHA IS PATENT, RIJ CENTRAL LINE PATENT AND INFUSING. PT'S , HILDA AT BEDSIDE AND CONTINUES TO BE PLEASANT AND APPROPRIATE. BED LOWERED, CALL LIGHT IN REACH.
[2024-07-21] VITALS (79 sets, daily range): BP systolic 81–145; BP diastolic 31–116
[2024-07-21 04:50] LABS: BASOPHILS ABSOLUTE AUTO 0.02 K/mm3 (0.00-0.23); BASOPHILS PERCENT AUTO 0 % (0-2); EOSINOPHILS ABSOLUTE AUTO 0.18 K/mm3 (0.00-0.68); EOSINOPHILS PERCENT AUTO 2 % (0-6); Hematocrit 24.1 % (37.0-53.0); IMMATURE GRAN ABSOLUTE AUTO 0.11 K/mm3 (0.00-0.10); IMMATURE GRAN PERCENT AUTO 1 % (0-1); LYMPHOCYTES ABSOLUTE AUTO 0.69 K/mm3 (0.84-5.20); LYMPHOCYTES PERCENT AUTO 6 % (21-46); MONOCYTES ABSOLUTE AUTO 0.83 K/mm3 (0.16-1.47); MONOCYTES PERCENT AUTO 7 % (4-13); Mean Corpuscular HGB 28.5 pg (26.0-34.0); Mean Corpuscular HGB Conc 33.2 g/dL (31.5-36.5); Mean Corpuscular Volume 86 fL (80-100); Mean Platelet Volume 9.5 fL (9.1-12.4); NEUTROPHILS ABSOLUTE AUTO 9.55 K/mm3 (1.96-9.15); NEUTROPHILS PERCENT AUTO 84 % (41-73); Platelet Count 276 K/mm3 (150-400); RDW Coefficient Variation 14.8 % (11.7-14.2); Red Blood Cell Count 2.81 M/mm3 (4.30-5.90); White Blood Cell Count 11.38 K/mm3 (4.00-11.30)
[2024-07-21 05:07] LABS: Bun/Creatinine Ratio 59.4 (12.0-20.0); Calcium, Blood 7.7 mg/dL (8.5-10.1); Creatinine, Blood 0.47 mg/dL (0.60-1.20); Phosphorus, Blood 2.5 mg/dL (2.5-4.9); Potassium, Blood 4.1 mmol/L (3.5-5.5)
--- NOTE | 2024-07-21 06:35 | NUR ---
SHIFT SUMMARY: NO ACUTE CHANGES OVERNIGHT; VSS THROUGHOUT THE SHIFT. PT REMAINS INTUBATED AND SEDATED WITH VENT SETTINGS AC/PC 12/5, FIO2 30%, RATE 14 AND TV 400-500; SPO2 100%. BP 90'S, MAP 65<, HR 90'S AND LEVO GTT @ 4 MCG. PEG TUBE REMAINS PATENT WITH VHP @ 20 MLS/HR; RESIDUALS PERFORMED TWICE THIS SHIFT WITH LESS THAN 10 MLS OUT. RECTAL TUBE WITH 900 MLS OUTPUT. GOOD URINE OUTPUT THIS SHIFT. ROM PERFORMED ON BLE. PROPOFOL GTT @ 25 MCG. PT ABLE TO REST PEACEFULLY THROUGHOUT THE NIGHT. PT'S , HILDA, AT BEDSIDE THROUGHOUT THE NIGHT; PT'S REMAINS PLEASANT AND APPROPRIATE. BED LOWERED, CALL LIGHT IN REACH.
--- NOTE | 2024-07-21 12:56 | NUR ---
1240: Checked gastric residuals, 110 mls. Turned TF up to 30, decreased CPN to 33 ml/hr. Pt denies nausea at this time.
--- NOTE | 2024-07-21 15:42 | NUR ---
Extubation. Pt extubated at 1535 to 3.5 L NC with good effect. Breath sounds coarse, diminished in right lower field. at bedside.
[2024-07-22] VITALS (64 sets, daily range): BP systolic 66–137; BP diastolic 41–103
[2024-07-22 04:11] LABS: BASOPHILS ABSOLUTE AUTO 0.02 K/mm3 (0.00-0.23); BASOPHILS PERCENT AUTO 0 % (0-2); EOSINOPHILS ABSOLUTE AUTO 0.13 K/mm3 (0.00-0.68); EOSINOPHILS PERCENT AUTO 1 % (0-6); Hemoglobin 8.2 g/dL (13.5-17.5); IMMATURE GRAN ABSOLUTE AUTO 0.11 K/mm3 (0.00-0.10); IMMATURE GRAN PERCENT AUTO 1 % (0-1); LYMPHOCYTES ABSOLUTE AUTO 0.58 K/mm3 (0.84-5.20); LYMPHOCYTES PERCENT AUTO 6 % (21-46); MONOCYTES ABSOLUTE AUTO 1.11 K/mm3 (0.16-1.47); MONOCYTES PERCENT AUTO 12 % (4-13); Mean Corpuscular HGB 27.7 pg (26.0-34.0); Mean Corpuscular HGB Conc 32.8 g/dL (31.5-36.5); Mean Corpuscular Volume 85 fL (80-100); Mean Platelet Volume 9.4 fL (9.1-12.4); NEUTROPHILS ABSOLUTE AUTO 7.14 K/mm3 (1.96-9.15); NEUTROPHILS PERCENT AUTO 79 % (41-73); Platelet Count 346 K/mm3 (150-400); RDW Standard Deviation 46.2 fL (35.1-46.3); Red Blood Cell Count 2.96 M/mm3 (4.30-5.90); White Blood Cell Count 9.09 K/mm3 (4.00-11.30)
[2024-07-22 04:27] LABS: Bun/Creatinine Ratio 59.1 (12.0-20.0); Calcium, Blood 7.9 mg/dL (8.5-10.1); Creatinine, Blood 0.44 mg/dL (0.60-1.20); Magnesium, Blood 1.8 mg/dL (1.6-2.4); Phosphorus, Blood 2.3 mg/dL (2.5-4.9); Potassium, Blood 3.8 mmol/L (3.5-5.5)
--- NOTE | 2024-07-22 06:40 | NUR ---
SHIFT SUMMARY PATIENT SLEPT FOR MOST OF NIGHT. BY BEDSIDE. NEEDS SUCTIONING OFTEN HELPS. PATEINT HAS CONTRACTURES IN BILATERAL LEGS AND RIGHT ARM. ALL BONY PROMINENCES PADDED WITH PILLOWS. HIP, COCCYX, AND GROIN HAVE MEPLIX APPLIED. O2 SATS 99% ON ROOM AIR, SBP 90-110'S MAP 65-70. HR 85-90'S. BRYANT DRAINING TO GRAVITY. HAS A RECTAL TUBE DRAINING TO GRAVITY. LEAKS LIQUID AROUND TUBE WHEN PATEINT COUGHS AND PULLS LEGS INTO A TIGHTER POSITION. FEEDING TUBE RUNNIN AT 30MLS WITH 30MLS FLUSH. RESIDUAL VOLUME CHECK Q4 SEE ORDERS. LEVOPHED RUNNING AT 4.5 MCG/MIN AND NS RUNNING @TKO. PATIENT HAS RIJ LINE AND A PERIPHERIAL RIGHT 20G AC IV. CALL LIGHT WITHIN REACH
[2024-07-22] MEDS ORDERED: Lactated Ringer's 1,000 ML IV ONE (09:50)
[2024-07-22] MEDS ORDERED: Midodrine 5 MG Tab PO SCH (13:00)
--- NOTE | 2024-07-22 13:13 | NUR ---
Spiritual care visit conducted. Pt is awake but unable to respond verbally and sometimes responds using inarticulate sounds. Pt is suffering from MS. Pt's spouse was at first withdrawn but became more open to conversation following a spirtual discussion about her mormonism beliefs paired with a denominational background. This welt sole layer demonstrated an understanding of buddihist practices pertaining to mindfulness and as a result was able to reach pt's on a level where she felt more comfortable engaging. Pt's was receptive to this discussion and appeared more friendly following this exchange. Pt's spouse reports that both her and pt feel connected to higher curtis. Life review conducted. Pt reports many positive aspects about pt and is optimistic about his resilience in the midst of difficult times. Prayer was offered and pt's spouse expressed gratitude and seemed less withdrawn as a result of the visit.
--- NOTE | 2024-07-22 18:46 | NUR ---
DAY SHIFT SUMMARY PT HAS BEEN ALERT THIS SHIFT FOLLOWING COMMANDS AND ANSWERING YES OR NO QUESTIONS. PT STARTED ON MIDODRINE THIS SHIFT AND LEVOPHED GTT TITRATED OFF AND PT HAS MAINTAINED MAP >65. PT MAINTAINING SPO2 >94% ON RM AIR. MONITOR SHOWING SR 90'S THIS SHIFT. PT HAD PEAK TEMP OF 102.0 THIS AM BUT WAS GIVEN TYLENOL AND TEMP RESOLVED AND HAS BEEN WNL THE REST OF THE SHIFT. PT UP IN THE RECLINER FOR MOST OF THE DAY. PT GIVEN 1L LR THIS SHIFT AT 150 ML/HR. CBG'S TRENDING DOWN THIS EVENING AT 84. REPORT GIVEN TO NOC ALEX ATKINS.
[2024-07-23] VITALS (42 sets, daily range): BP systolic 80–116; BP diastolic 48–81
[2024-07-23 03:46] LABS: BASOPHILS ABSOLUTE AUTO 0.02 K/mm3 (0.00-0.23); BASOPHILS PERCENT AUTO 0 % (0-2); EOSINOPHILS ABSOLUTE AUTO 0.18 K/mm3 (0.00-0.68); EOSINOPHILS PERCENT AUTO 3 % (0-6); Hematocrit 23.8 % (37.0-53.0); Hemoglobin 7.7 g/dL (13.5-17.5); IMMATURE GRAN ABSOLUTE AUTO 0.12 K/mm3 (0.00-0.10); IMMATURE GRAN PERCENT AUTO 2 % (0-1); LYMPHOCYTES ABSOLUTE AUTO 0.49 K/mm3 (0.84-5.20); LYMPHOCYTES PERCENT AUTO 7 % (21-46); MONOCYTES ABSOLUTE AUTO 1.02 K/mm3 (0.16-1.47); MONOCYTES PERCENT AUTO 14 % (4-13); Mean Corpuscular HGB 27.7 pg (26.0-34.0); Mean Corpuscular HGB Conc 32.4 g/dL (31.5-36.5); Mean Corpuscular Volume 86 fL (80-100); Mean Platelet Volume 9.3 fL (9.1-12.4); NEUTROPHILS ABSOLUTE AUTO 5.43 K/mm3 (1.96-9.15); NEUTROPHILS PERCENT AUTO 75 % (41-73); Platelet Count 393 K/mm3 (150-400); RDW Coefficient Variation 15.1 % (11.7-14.2); RDW Standard Deviation 47.8 fL (35.1-46.3); Red Blood Cell Count 2.78 M/mm3 (4.30-5.90); White Blood Cell Count 7.26 K/mm3 (4.00-11.30)
[2024-07-23 04:00] LABS: Calcium, Blood 7.4 mg/dL (8.5-10.1); Creatinine, Blood 0.43 mg/dL (0.60-1.20); Magnesium, Blood 1.7 mg/dL (1.6-2.4); Phosphorus, Blood 1.5 mg/dL (2.5-4.9); Potassium, Blood 3.9 mmol/L (3.5-5.5)
[2024-07-23] MEDS ORDERED: Potassium Phosphate Dibasic 20 MM in Dextrose 5% 500 ML IV ONE (05:30)
--- NOTE | 2024-07-23 06:22 | NUR ---
SHIFT SUMMARY PATIENT SLEPT FOR 5 STRAIGHT HOURS DURING THE END OF SHIFT. WAS SLEEPING AT BEDSIDE. PATIENT ALERT BUT NONVERBAL DOES GROANS AND SQUEEZE HAND IF ASKED. BILATERAL LUNGS COARSE AND DIMINSHED. PATIENT COUGHS AND SUCTIONS VERY LITTLE COMES OUT. SBP 95-110'S AND HR IN THE 90'S. PATEINT HAS BRYANT DRAINING TO GRAVITY. PATIENT HAS RECTAL TUBE DRAINING TO GRAVITY. HAS BILATERAL LOWER LEG CONTRACTURES AND RIGHT ARM AND HAND CONTRACTURE. FEED TUBE JEVITY 1.2 RUNNING AT GOAL OF 45ML/HR AND 30ML FLUSH EVERY 4 HOURS. HAS RIJ AND PERIPHERIAL 20G RIGHT UPPER ARM IV. PILLOW UNDER ALL BONY PROMINENCES AND MEPLIX IN PLACE ON HIP GROINS AND COCCYX. CALL LIGHT WITHIN REACH.
--- NOTE | 2024-07-23 12:14 | NUR ---
UPDATE PT BECOMING SPONTANEOUSLEY NAUSEOUS WRETCHING IN BED. THIS RN GIVING THE PT IV REGLAN AND CHECKING PEG TUBE RESIDUALS. RESIDUALS 250ML. UPTWIST SPINNER BRADEN CONTACTED AND NOTIFIED OF CHANGE. PT STARTING TO HAVE SOME RELIEF OF NAUSEA. UPTWIST SPINNER INSTRUCTING THIS RN TO HOLD TUBE FEEDINGS FOR ONE HOUR AND THEN RESTART THEM AT 25 ML/HR. EXERCISE EQUIPMENT SPECIALIST IVANNA Gr UPDATED.
[2024-07-23] MEDS ORDERED: Midodrine 5 MG Tab PO SCH (13:00)
--- NOTE | 2024-07-23 13:00 | NUR ---
PT UPDATE PT'S CALLING THIS RN AND ALEX CHERY TO BEDSIDE. THIS RN CAME TO BEDSIDE THE PT'S BEGAN EXPRESSING CONCERNS THAT THE PT IS AGAIN HAVING TROUBLE WITH THE TUBE FEEDING AND NAUSEA. THIS RN EXPLAINING TO THE PT'S THAT I HAD DISCUSSED THE PT'S NAUSEA WITH THE UTILITY DIVISION PROJECT MANAGER AND THE CRITICAL CARE DR AND A PLAN TO WITHOLD TUBE FEEDS FOR 4 HOURS AND RESUMING THEM AT A REDUCED RATE WAS THE AGREED UPON COURSE OF ACTION. THE UTILITY DIVISION PROJECT MANAGER BRADEN WAS NOTIFIED THAT THE PT'S STOOL HAD INCREASED IN AMOUNT AND WAS VERY LOOSE. UTILITY DIVISION PROJECT MANAGER COMING TO BEDSIDE AND ASSESSED THE PT'S STOOL IN THE RECTAL TUBE BAG. UTILITY DIVISION PROJECT MANAGER EDUCATION THE PT'S ON THE PLAN AND ADDRESSING HER QUESTIONS. PT'S BECOMING VISIBLY UPSET W STAFF WHEN THE TERM "MALNUTRION" WAS USED IN DESCRIBING THE PT'S NUTRIONAL STATUS. PT'S TELLING STAFF THAT HE HAD NEVER BEEN MALNURISHED AND HAS ONLY BEEN LOSING WEIGHT SINCE HIS HOSPITALIZATION. PT'S SPOUSE EDUCATED THE PT'S ON MUSCLE LOSS AND NUTRIONAL NEEDS OF THE PT. PLAN TO RESUME TUBE FEEDS AT 1600 AT 25 ML/HR.
[2024-07-23] MEDS ORDERED: Thiamine HCl 100 MG Tab PT SCH (15:15)
[2024-07-23] MEDS ORDERED: Multivitamins-Minerals Liquid 15 ML Oral Syringe PT SCH (15:15)
[2024-07-23] MEDS ORDERED: Metoclopramide HCl 10 MG Tab PT SCH (16:00)
--- NOTE | 2024-07-23 17:51 | NUR ---
SHIFT SUMMARY PATIENT AWAKE AND ALERT OPENING EYES SPONTANEOUSLY. UNABLE TO ASSESS ORIENTATION. PATIENT WILL PARTICIPATE IN ASSESSMENTS OCCASIONALLY BY NODDING HIS HEAD YES AND NO OR SQUEEZING HIS HAND. GOOD COUGH TODAY. SBPS 90-100S, MAP REMAINED ABOVE 60. SINUS RHYTHM HR 90S. LUNGS CLEAR ANTERIORLY, SOME INTERMITTEND COARSE LUNG SOUNDS BILATERAL BASES. ABDOMEN IS SOFT/NON TENDER, MILD DISTENSION IN AM RESOLVED IN AFTERNOON. SOME NAUSEA IN AM/MID MORNING AND WORSE IN THE AFTERNOON WITH INCREASED STOOL OUTPUT. SEE PRIOR NOTE FOR FULL DETAILS. PEG TUBE FEED HELD AND THEN RESTARTED AT 25ML/HR PER PLASTICS NURSE. ABLE TO MOVE RUE WELL TODAY, PARTICIPATED IN ORAL SUCTIONING. FULL BED CHANGE TWICE SOME LEAKAGE FROM RECTAL TUBE LIKELY DUE TO POSIITONING. CHANGED DRESSING TO COCCYX AND R HIP TODAY OTHERWISE DRESSINGS C/D/I. AT THE BEDSIDE MOST OF THE DAY. 2
--- NOTE | 2024-07-23 23:26 | NUR ---
TRANSFER TO PCU NOTE RECEIVED REPORT FROM DEVELOPMENT SCIENTIST MIRACLE ARANGO, PT SHORTLY ARRIVED TO PCU 12 FROM ICU 6 AT 2228. TRANSFERRED FROM ICU BED TO PCU BED VIA SLIDE SHEET. ALERT, BUT ONLY TO INTERMITTENTLY MUMBLE SOME WORDS OR SHAKE HEAD "YES" OR "NO" TO QUESTIONS. CARDIAC, TELEMETRY SHOWS SR 90 WITH SBP RANGING 80-100'S. SHAKES HEAD "NO" FOR ANY CP, PRESSURE OR DIZZINESS. RESPIRATORY, MAINTAINS SPO2 >95% ON RA, RR EVEN AND UNLABORED. DENIES DYSPNEA OR SOB AT THIS TIME. INTERMITTENT COUGH NOTED, SCANT THICK WHITE SECREATIONS PER DEVELOPMENT SCIENTIST. GI/, BS PRESENT IN ALL QUADRANTS. DENIES NAUSEA AT THIS TIME. PEG TUBE IN PLACE, RESIDUAL VOLUME CHECKED UPON TRANSFER WITH MINIMAL OUTPUT NOTED. RECTAL TUBE IN PLACE WITH BROWN/YELLOWISH OUTPUT, MINOR LEAKAGE NOTED. BRYANT CATH PATENT DRAINING STRAW COLORED URINE TO GRAVITY. MS, MULTIPLE CONTRATURES NOTED WITH BLE AND RIGHT HAND/ARM. ABLE TO MOVE LEFT ARM, BUT IS WEAK. SEVERAL WOUNDS NOTED AROSS BINDU PROMINENCES, MEPILEXS IN PLACE. TF RESUMED AT 25ML/HR WITH 30ML Q4 FLUSH ORDERED. 1xPIV NOTED IN RUE WELL RIJ CENTRAL LINE IN PLACE. GOOD BLOOD RETURN NOTED WITH ALL LUMNES FLUSHING WELL. DENIES PAIN AT THIS TIME, BUT INTERMITTENT PAIN NOTED DUE TO CONTRACTURES WHEN REPOSTIONED. S.O. AT BEDSIDE AND CAME WITH PT FROM ICU. REVIWED DEVELOPMENT SCIENTIST'S SHIFT ASSESSMENT FINDINGS AND THIS RN IS IN AGREEMENT. NO NEW ORDERS AT THIS TIME. TURNER, RIRI OF THIS NOTE.
[2024-07-24] VITALS (9 sets, daily range): BP systolic 82–109; BP diastolic 53–62
--- NOTE | 2024-07-24 00:43 | NUR ---
UPDATE TF INCREASED TO GOALRATE OF 35ML/HR. TOLERATING TF WELL, DENIES NAUSEA OR ABD TENDERNESS AT THIS TIME
[2024-07-24 04:07] LABS: BASOPHILS ABSOLUTE AUTO 0.02 K/mm3 (0.00-0.23); BASOPHILS PERCENT AUTO 0 % (0-2); EOSINOPHILS ABSOLUTE AUTO 0.26 K/mm3 (0.00-0.68); EOSINOPHILS PERCENT AUTO 4 % (0-6); Hematocrit 22.4 % (37.0-53.0); Hemoglobin 7.5 g/dL (13.5-17.5); IMMATURE GRAN ABSOLUTE AUTO 0.09 K/mm3 (0.00-0.10); IMMATURE GRAN PERCENT AUTO 1 % (0-1); LYMPHOCYTES ABSOLUTE AUTO 0.85 K/mm3 (0.84-5.20); LYMPHOCYTES PERCENT AUTO 12 % (21-46); MONOCYTES ABSOLUTE AUTO 0.96 K/mm3 (0.16-1.47); MONOCYTES PERCENT AUTO 14 % (4-13); Mean Corpuscular HGB 28.3 pg (26.0-34.0); Mean Corpuscular HGB Conc 33.5 g/dL (31.5-36.5); Mean Corpuscular Volume 85 fL (80-100); Mean Platelet Volume 9.2 fL (9.1-12.4); NEUTROPHILS ABSOLUTE AUTO 4.67 K/mm3 (1.96-9.15); NEUTROPHILS PERCENT AUTO 68 % (41-73); Platelet Count 463 K/mm3 (150-400); RDW Coefficient Variation 15.3 % (11.7-14.2); RDW Standard Deviation 47.5 fL (35.1-46.3); Red Blood Cell Count 2.65 M/mm3 (4.30-5.90); White Blood Cell Count 6.85 K/mm3 (4.00-11.30)
[2024-07-24 04:21] LABS: Albumin, Blood 2.1 g/dL (3.4-5.0); Anion Gap 9 mmol/L (3-11); Blood Urea Nitrogen 25 mg/dL (8-24); Bun/Creatinine Ratio 55.2 (12.0-20.0); CO2, Blood 22 mmol/L (21-32); Calcium, Blood 7.8 mg/dL (8.5-10.1); Chloride, Blood 114 mmol/L (98-108); Creatinine, Blood 0.45 mg/dL (0.60-1.20); Glomerular Filtration Rate 123 (60-); Glucose, Blood 107 mg/dL (70-99); Magnesium, Blood 1.9 mg/dL (1.6-2.4); Potassium, Blood 3.9 mmol/L (3.5-5.5); Sodium, Blood 141 mmol/L (136-145)
--- NOTE | 2024-07-24 05:17 | NUR ---
SHIFT SUMMARY NO ACUTE CHANGES SINCE ARRIVAL TO PCU NOTE. SEE NOTE FOR DETAILS. TF NOW AT GOAL RATE, PT TOLERATING WELL. NO NEW ORDERS AT THIS TIME, WILL REPORT TO ONCOMING RN. TURNER, RIRI OF THIS NOTE.
[2024-07-24] MEDS ORDERED: Lansoprazole 15 MG TAB.RAP.DR PT SCH (06:00)
[2024-07-24] MEDS ORDERED: Potassium Phosphate Dibasic 15 MM in Dextrose 5% 250 ML IV ONE (06:10)
--- NOTE | 2024-07-24 08:03 | NUR ---
ASSUMPTION NOTE: THIS RN TO ASSUME CARE OF PATIENT. PATIENT IN BED WATCHING TV. VITAL SIGNS TAKEN AND STABLE. PATIENT SHOOK HEAD AND STATED NO WHEN ASKED IF HE WAS HAVING CHEST PAIN OR FELT SHORT OF BREATH. HAS BED IN LOWEST POSITION AND CALL LIGHT WITHIN REACH. TO BE BACK SHORTLY.
--- NOTE | 2024-07-24 13:00 | NUR ---
MD AT BEDSIDE: MD CAME TO BEDSIDE TO CHAT WITH AND SET A PLAN MOVING FORWARD. PLAN WILL BE SET TO DISCHARGE WITHIN A FEW DAYS PENDING FEEDING TUBE EVALUATION FROM DIETIAN THEY FIGURE OUT WHAT HE WILL NEED REGARDING FEEDS.
--- NOTE | 2024-07-24 16:38 | NUR ---
DIETIAN CALLED THIS RN TO GO THROUGH NEW ORDERS FOR TUBE FEEDING. TUBE FEEDING TO BE INCREASED TO 45MLS/HR THEN AFTER 8HRS IF PATIENT TOLERATES IT THE FOAL RATE WILL BE MET AND THEN CAN BE INCREASED TO 55MLS/HR.
--- NOTE | 2024-07-24 17:08 | NUR ---
CALL PLACED TO MD: THIS RN WAS NOTIFIED REGARDING PATIENT GOING TACHYCARDIAC AND RATE INCREASE. THIS RN TRIED TO CALL MD AND HE DID NOT ANSWER. WILL TRY WITHIN 20 MINUTES TO CALL AGAIN.
--- NOTE | 2024-07-24 17:29 | NUR ---
SHIFT SUMMARY: PATIENT IS ALERT AND ORIENTED X4 AND WAS ABLE TO ANSWER ORIENTATION QUESTIONS VIA A YES OR NO AND SHAKING THE HEAD. PATIENT IS ON TELE AND BEGINNING OF SHIFT WAS SINUS RYTHM WITH RATE IN 80'S. AROUND 1600 PATIENT DID HAVE A RUN OF SVT THAT IS SAVED WITHIN THE EMAR. A CALL WAS PLACED TO THE MD BUT THEY DID NOT ANSWER. PATIENT SATTING >92% ON ROOM AIR, EVEN AND UNLABORED RESPIRATIONS AT REST. WAS AT BEDSIDE THROUGHOUT SHIFT. DIETIAN ON THE CASE AND TUBE FEED WAS INCREASED TO 45 AND AFTER 8HRS WILL BE INCREASED TO 55 WHICH IS THE GOAL RATE. THIS RN WILL NOTIFY CRISIS INTERVENTION SPECIALIST RN ABOUT THAT CHANGE. THE BRYANT CATHETER WAS REMOVED AND PUREWICK PLACED. PLAN WILL BE TO WORK WITH INSURANCE ON GETTING THE PATINET A KANGAROO PUMP TO BE ON AT HOME AND WORK WITH OUTPATIENT DIETIAN. WILL REPORT THIS TO ONCOMING NIGHT SHIT RN AT CHANGE OF SHIFT WHERE THEY WILL ASSUME CARE. THIS RN WILL CONTINUE TO MONITOR UNITL SHIFT CHANGE.
[2024-07-24] MEDS ORDERED: Banana Flakes/Tos 1 EA Powder Pack PT SCH (21:00)
[2024-07-25 03:50] VITALS: BP 99/56
[2024-07-25 05:01] LABS: Hematocrit 23.6 % (37.0-53.0); Hemoglobin 7.7 g/dL (13.5-17.5); Mean Corpuscular HGB 27.5 pg (26.0-34.0); Mean Corpuscular HGB Conc 32.6 g/dL (31.5-36.5); Mean Corpuscular Volume 84 fL (80-100); Mean Platelet Volume 9.2 fL (9.1-12.4); Platelet Count 525 K/mm3 (150-400); RDW Coefficient Variation 15.3 % (11.7-14.2); RDW Standard Deviation 47.1 fL (35.1-46.3); White Blood Cell Count 7.17 K/mm3 (4.00-11.30)
[2024-07-25 05:31] LABS: Anion Gap 13 mmol/L (3-11); Blood Urea Nitrogen 20 mg/dL (8-24); Bun/Creatinine Ratio 46.1 (12.0-20.0); CO2, Blood 22 mmol/L (21-32); Calcium, Blood 7.6 mg/dL (8.5-10.1); Chloride, Blood 111 mmol/L (98-108); Creatinine, Blood 0.43 mg/dL (0.60-1.20); Glomerular Filtration Rate 125 (60-); Glucose, Blood 95 mg/dL (70-99); Magnesium, Blood 1.7 mg/dL (1.6-2.4); Phosphorus, Blood 2.5 mg/dL (2.5-4.9); Potassium, Blood 4.3 mmol/L (3.5-5.5); Sodium, Blood 142 mmol/L (136-145)
[2024-07-25] MEDS ORDERED: Mag Sulfate 1 GM/D5% 100ML 100 ML IV ONE (06:10)
--- NOTE | 2024-07-25 06:36 | NUR ---
SHIFT SUMMARY NO ACUTE EVENTS THIS SHIFT, TMAX 100.1F, MEDICATED WITH TYLENOL VIA PEG FOR TEMP, TURNED AND REPOSITIONED FOR COMFORT EVERY 2 HOURS, PT SOFIA WELL, HOB UP 45 DEGREES, SIDE RAILS UP X2, CALLED AND NOTIFIED OF AM LAB RESULTS WITH NEW ORDERS RECEIVED, SPOUSE REMAINS IN ROOM
--- NOTE | 2024-07-25 06:54 | NUR ---
UPDATE TUBE FEEDING REMAINS AT 45 ML/HR PER SPOUSE, STATES TO LEAVE AT 45 ML/HR AND SHE WILL SPEAK TO MD IN AM ABOUT GOAL RATE OF 55 ML/HR DUE TO LAST TIME FEEDING WAS AT 50 ML/HR PT ASPIRATED AND DID NOT TOLERATE
[2024-07-25 07:40] VITALS: BP 95/60
--- NOTE | 2024-07-25 07:44 | NUR ---
ASSUMPTION NOTE: THIS RN TO ASSUME CARE OF PATIENT. VITAL SIGNS TAKEN AND PATIENT IS STABLE. BLOOD PRESSURE SYSTOLIC BELOW 100 BUT MAP >65. IS AT BEDSIDE AND ASKING A TIMEFRAME FOR THE DOCTOR THIS RN LET HER KNOW THEY COME BETWEEN ANYTIME IN THE MORNING. KANAGROO PUMP WAS INCRASED TO 50 THE GOAL RATE IS 55. PATIENT ANSWERED WITH SHAKING THE HEAD NO THAT HE WAS NOT IN ANY PAIN OR FEELING SHORT OF BRATH.
[2024-07-25 11:27] VITALS: BP 91/60
--- NOTE | 2024-07-25 11:44 | NUR ---
COFFEE GROWER AT BEDSIDE: BRADEN COFFEE GROWER AT BEDSIDE AND ON THE PHONE WITH THE HILDA. IS GOING OVER WITH PATIENT THAT WE WILL TRAIL A BOLUS AND WILL CONTINUE THE TRICKLE FEEDS OVERNIGHT.
[2024-07-25 16:46] VITALS: BP 97/60
--- NOTE | 2024-07-25 17:16 | NUR ---
SHIFT SUMMARY: PATIENT IS ALERT AND ABLE TO ANSWER QUESTIONS WITH ONLY A NOD OR YES OR NO. NEEDS SIMPLE QUESTIONS. PATIENT IS NON VERBAL OTHERWISE. IS ON TELE SHOWING SINUS RYTHM WITH RATE IN 80'S. SATTING >92% ON ROOM AIR, EVEN AND UNLABORED RESPIRAITONS AT REST. PATIENT WAS STARTED ON BOLUS FEEDINGS TODAY AND TH EORDERS ARE IN THE CHART. PATIENT TOLERATED IT WELL. THE WAS AT BEDSIDE DURING THE 2ND BOLUS AND FELT THAT THE PATIENT WAS IN PAIN FROM THE FEEDING ITSELF AND STATED "THIS IS HOW HE WAS ACTING LAST TIME WE TRIED THIS" THIS RN TURNED DOWN THE RATE FOR ABOUT TEN MINUTES THEN THE RATE WAS INCREASED ONCE AGAIN. PATIENTS STATED SHE HAD JUST COMPLETED ORAL CARE AND THIS RN STATED THAT COULD ALSO BE A REASON WHEN HE IS BEING TURNED HE ALSO SHOWS THE SAME SIGNS OF AGITATION. WHEN THIS RN ASKED IF PATIENT WAS FEELING ANY PAIN IN HIS STOMACH HE SHOOK HIS HEAD NO AND ALSO VERBALIZED NO. PATIENT DID NOT NEED ANY COVERAGE FOR BLOOD SUGARS TODAY. PLAN WILL BE TO CONTINUE TRYING BOLUS THORUGHOUT THE DAY AND DO A TRICKLE FEED OVERNIGHT UNTIL THE PATIENT TOLERATES IT. THIS RN WILL CONTINUE TO MONITOR PATIENT UNTIL SHIFT CHANGE AND COMMUNITY HEALTH PLANNING DIRECTOR RN TAKES OVER CARE.
[2024-07-25 20:42] VITALS: BP 100/60
--- NOTE | 2024-07-25 22:17 | NUR ---
FAMILY CALLED THIS NURSE TO PT ROOM PT CALLED THIS NURSE TO PT ROOM AFTER GIVING PT MEDICATIONS THROUGH PEGTUBE. HILDA STATES THAT PT STOMACH IS IN PAIN BECAUSE HE GRUNTED. THIS NURSE ASKED PT IF HE WAS IN PAIN, PT NODDED HEAD SIDE TO SIDE "NO". SAID THE PT HAS MS AND HE SOMETIMES NODS BECAUSE OF IT. THIS NURSE ASKED PT AGAIN, "ARE YOU IN ANY PAIN". THE PATIENT LOOKED INTO THIS NURSES EYES AND VERBALIED THE WORD "NO". PT GRABBED PT HAND AND ASKED HIM MULTIPLE TIMES IF HE WAS SURE. THIS NURSE SUGGESTING STOPPING FEED FOR ONE HOUR AND RESUMING AGAIN AFTER THIS. AND PT WAS AGREEABLE.
[2024-07-25 23:55] VITALS: BP 101/59
--- NOTE | 2024-07-26 01:44 | NUR ---
NURSE CALLED TO PT ROOM THIS NURSE CALLED TO PT ROOM, PT STATES PT IS GAGGING LIKE HE IS GOING TO VOMIT. WHEN THIS NURSE ENTERED ROOM, PT WAS LYING ON HIS L SIDE LICKING THE INSIDE OF HIS MOUTH. PT STATES THAT LICKING HIS MOUTH REPEATIVLY IS NOT NORMAL AND HE COULD BE GETTING READY TO VOMIT. TUBE FEEDING STOPPED PER REQUEST AGAIN. PT RECTAL TUBE FLUSHED, PT REPOSITIONED AND ATTENDS CHANGED. PT ABD NONT DISTENDED OR TENDER. THIS NURSE EDUCATED PT ABOUT TUBE FEEDINGS AND SIGNS TO LOOK FOR ASPIRATION. TUBE FEEDINGS RESTARTED BUT PT ASKED FOR A BREATHING TREATMENT.
--- NOTE | 2024-07-26 04:03 | NUR ---
PT CALLED THIS NURSE TO PT ROOM PT CALLED THIS NURSE TO PT ROOM SAYING PT SAID HIS STOMACH WAS HURTING. WHEN ASKING THE PT, PT NODDED HEAD UP AND DOWN CONFIRMING STOMACH HURT. TUBE FEEDING PUT ON STAND BY. PT AT BEDSIDE SUCTIONING PT MOUTH, PT COUGHING BUT WITH NO PRODUCTION.
[2024-07-26 04:29] LABS: Hematocrit 23.9 % (37.0-53.0); Hemoglobin 7.7 g/dL (13.5-17.5); Mean Corpuscular HGB 27.6 pg (26.0-34.0); Mean Corpuscular HGB Conc 32.2 g/dL (31.5-36.5); Mean Corpuscular Volume 86 fL (80-100); Platelet Count 552 K/mm3 (150-400); RDW Coefficient Variation 15.4 % (11.7-14.2); RDW Standard Deviation 48.6 fL (35.1-46.3); Red Blood Cell Count 2.79 M/mm3 (4.30-5.90); White Blood Cell Count 9.83 K/mm3 (4.00-11.30)
[2024-07-26 05:08] LABS: Albumin, Blood 2.1 g/dL (3.4-5.0); Anion Gap 10 mmol/L (3-11); Blood Urea Nitrogen 20 mg/dL (8-24); Bun/Creatinine Ratio 44.1 (12.0-20.0); CO2, Blood 24 mmol/L (21-32); Calcium, Blood 7.7 mg/dL (8.5-10.1); Chloride, Blood 110 mmol/L (98-108); Creatinine, Blood 0.45 mg/dL (0.60-1.20); Glomerular Filtration Rate 123 (60-); Glucose, Blood 111 mg/dL (70-99); Magnesium, Blood 2.1 mg/dL (1.6-2.4); Phosphorus, Blood 2.2 mg/dL (2.5-4.9); Potassium, Blood 4.2 mmol/L (3.5-5.5); Sodium, Blood 140 mmol/L (136-145)
--- NOTE | 2024-07-26 05:54 | NUR ---
SHIFT SUMMARY ASSUMED CARE PF PT AT 1900. PT IS A/OX4. HEART SOUNDS REGULAR. LUNG SOUNDS CLEAR. PT COUGHING T/O NOC WITH NO PRODUCTION. PT HAD RECTAL TUBE DRAINING LIQUID BROWN URINE. PT HAD MALE PURWICK, DRAINING CEDRIC COLORED URINE. PT HAS VARIES WOUNDS ON BODY, MEPILEX APPLIED TO BODY PROMINENCES. PT TOLERATED TUBE FEEDING UNTIL ABOUT 0400 WHEN PT STATES HE WAS UNCOMFORTABLE. TUBE FEEDING OFF SINCE PER REQUEST. SEE PREVIOUS NOTES.
[2024-07-26 07:59] VITALS: BP 94/62
--- NOTE | 2024-07-26 08:01 | NUR ---
ASSUMPTION NOTE: THIS RN TO ASSUME CARE OF PATIENT. PATIENT IS AWAKE AND WATCHING TV. IS IN RECLINER. VITAL SIGNS TAKEN AND PATIENT IS STABLE. WHEN ASKED PATIENT STATED HE IS NOT IN PAIN OR HAVING CHEST PAIN. HAS CALL LIGHT WITHIN REACH, BED AT LOWEST POSITION.
--- NOTE | 2024-07-26 08:07 | NUR ---
feeding paused per orders and this rn will set up to start the bolus feedings every two hours at 10:00.
--- NOTE | 2024-07-26 09:00 | NUR ---
md at bedside: md horowitz at bedside and talking to patient and at bedside. was frustrated as md was giving plan that is still waiting for insurance to approve the kangaroo pump for at home use. until then patient would like to be taught how to flush and how the pump itself works, medications he is taking, how to crush/give medications. this rn let her know we could do afternoon medications together and will give her printed education hand outs about the medications he is receving and the pump itself. left. patient has call light within reach and bed at the lowest position.
[2024-07-26 11:48] VITALS: BP 99/62
--- NOTE | 2024-07-26 14:00 | NUR ---
steward/[employer] dining car at [facility]: meenu steward/[employer] dining car came to bedside and was able to speak to patient and . they were notified that the next step will to increase the bolus feeds and decrease the trickle feeds overnight. was hesitant and needed some further discussion regarding what the plan of care and what the ultimate goal is. naseem nurse came in shortly after.
--- NOTE | 2024-07-26 14:48 | NUR ---
GIRLFRIEND EDUCATION WITH PUMP: THIS RN IS GOING OVER EDUATION REGARDING MEDICATIONS AND THE PUMP. GIRLFRIEND WAS EDCUATED HOW TO CRUSH MEDS, FLUSH, AND WRITE DOWN THE VOLUMES THAT WERE GIVEN. THE GIRLFRIEND WAS ABLE TO SHOW UNDERSTANDING BY DOING A MED WITH THE NURSE HELPING.
[2024-07-26 15:05] VITALS: BP 102/59
--- NOTE | 2024-07-26 17:20 | NUR ---
MEDICATION ASSISTANCE: THIS RN HAD THE GIRLFRIEND AT BEDSIDE HELP WITH EVENING MEDICATIONS. SHE ASKED QUESTIONS AND UNDERSTOOD THE PROCESS OF CRUSHING MEDS, FLUSHING THE LINE AND PUSHING THE MEDICATIONS ONCED MIXED WITH WATER. SHOWED THIS COMPETENCY BY COMPLETING GIVING MEDICATIONS THROUGH THE PEG TUBE. PATIENT TOLERATED IT WELL AND WAS RESTING WHILE THE MEDICATIONS WERE BEING GIVEN, DID NOT SHOW ANY SIGNS OF DISCOMFORT. PATIENT HAS THE BED IN THE LOWEST POSITION AND CALL LIGHT WITHIN REACH.
--- NOTE | 2024-07-26 17:21 | NUR ---
MEET AND GREET WITH PATIENTS S/O HILDA. PROVIDED THERAPUTIC CONVERSATION AND ENCOURAGMENT. S/O IS LEARNING TUBE FEEDS. SHE EXPRESSED GRATUTIDE FOR VISIT AND SUPPORT
[2024-07-26 20:35] VITALS: BP 98/63
--- NOTE | 2024-07-26 21:03 | NUR ---
FRIEND HILDA BECAME CONFRONTATIONAL DURING NEURO ASSESSMENT, LAM UNION CARPENTER NOTIFIED TO STANDBY FOR REMAINDER OF ASSESSMENT, VITALS AND MED ADMINISTRATION. HILDA STATES PT'S MOTHER AND COUSIN'S ARE LOCATED IN [place]. PER HILDA THE PT ALSO REFERS TO HER MOM HIS MOM WELL.
--- NOTE | 2024-07-26 21:16 | NUR ---
PT'S ZACARIAS STEVENS FOUND REPAIR SUPERVISOR IN [facility] AND STATED TO NOT TALK ABOUT PATIENTS FAMILY IN FRONT OF PT. HILDA STATED THAT HER FAMILY IS THE PATIENTS ONLY FAMILY. HILDA WANTED TO KNOW WHY PRIMARY NURSE WAS ASKING ABOUT THE PAITENTS NEXT OF KIN, PRIMARY NURSE STATED IT WAS FOR SAFETY REASONS SO WE KNOW WHO TO CALL IF THE PATIENT NEEDS HELP. HILDA STATED WE CALL HER (HILDA) OR HER MOM (HILDA), NOT HIS FAMILY AND THAT SHE HOLDS A POA. RN REQUESTED HILDA TO BRING IN POA PAPER WORK TO CLEAR UP ANY CONFUSION. HILDA STATED THAT SHE DOES NOT HAVE TO BRING IN ANYTHING. HILDA IS REFFERING TO HERSELF THE PT'S BUT THERE HAVE BEEN REPORTS FROM OTHER STAFF THAT SHE IS A GIRLFRIEND. PROVIDER AWARE OF DYNAMIC. RN JASMINA WITNESS TO CONVERSATION. LAM DUTTA RN NOTIFIED.
[2024-07-26 23:14] VITALS: BP 93/53
--- NOTE | 2024-07-27 05:00 | NUR ---
SHIFT SUMMARY- POA CONCERNS NEURO: RN BEGAN ASSESSMENT, STANDING IN BETWEEN THE FIELD OF VISION OF THE PATIENT AND PT'S FRIEND HILDA. WHEN ASKING ORIENTATION QUESTIONS, PT ATTEMPTED TO MOUTH WORDS. HILDA INTERJECTED ABOUT HOW HE RESPONDS. RN NOTIFIED HILDA THAT THE NURSE HAS TO DIRECT THE QUESTIONS TO THE PATIENT. RN REPEATS QUESTIONS TO PATIENT WHICH INCREASED HILDA'S AGITATION. RN ATTEMPTED TO ASSESS PATIENTS HAND GRASP AND FOOT MOVEMENT. HILDA BECOMES UPSET AND CLAIMS "I'M NOT LYING TO YOU, I ALREADY TOLD YOU". PT STOPS PARTICIPATING IN ASSESSMENT AT THIS TIME AND INSTEAD OF ANSWERING RN'S QUESTIONS, THEIR EYES MOVE TO HILDA. ELECTRICIAN SHOP LAM CALLED TO STANDBY AND REMAIN IN ROOM FOR REMAINDER OF INTERACTION. CARDIAC: SYSTOLIC IN THE 90'S. NSR. PULSES PRESENT IN ALL EXTREMETIES. LUNGS: COARSE UPPER LOBES, DIMINISHED BASES. ON RA. WEAK COUGH. GI/: TF RUNNING ORDERED. NO RESIDUALS. PT DENIES PAIN. SKIN: DRESSING IN PLACE. WHILE IN ROOM WITH PATIENT RN INQUIRED ABOUT FAMILY COMING TO VISIT BECAUSE HILDA SAID "MOM IS COMING TOMORROW". AFTER CLARIFICATION, IT IS HILDA'S MOM SHE IS REFFERENCING. RN ASKED FOR CLARIFICATION ON "COUSINS" COMING TO VISIT WELL. HILDA STATES THAT HER FAMILY IS HIS FAMILY AND HIS FAMILY HASN'T CONTACTED HIM IN OVER 12 YEARS. RN NOTE FROM FADUMO MELGAR SHOWS THE PATIENTS MOM LYLY DID CALL FOR AN UPDATE- SEE NOTE. AFTER LEAVING THE ROOM, HILDA SOON CAME OUT AND WAS ADAMANT THAT STAFF STOP ASKING ABOUT HIS FAMILY. RN TRIED TO CLARIFY FAMILY DYNAMIC- SEE PREVIOUS NOTE FROM THIS WEIGHMASTER. ETHICS CONSULT PLACED DUE TO POA AND NOK CONCERNS AND WITH THE SEVERITY HILDA IS INTERFERRING WITH PATIENTS ASSESSMENT AND CARE. -POSSIBLE PHONE NUMBERS FOR MARIAH ZAMUDIO (UNCONFIRMED BUT POSSIBLY PATIENTS MOM) [phone]: MOST RECENT LISTING OF JUL 20. [phone]
[2024-07-27 08:18] VITALS: BP 99/64
[2024-07-27 12:08] VITALS: BP 87/59
[2024-07-27 13:26] LABS: Albumin, Blood 2.2 g/dL (3.4-5.0); Anion Gap 8 mmol/L (3-11); Blood Urea Nitrogen 21 mg/dL (8-24); Bun/Creatinine Ratio 43.1 (12.0-20.0); CO2, Blood 29 mmol/L (21-32); Chloride, Blood 109 mmol/L (98-108); Creatinine, Blood 0.49 mg/dL (0.60-1.20); Glomerular Filtration Rate 120 (60-); Glucose, Blood 114 mg/dL (70-99); Magnesium, Blood 2.3 mg/dL (1.6-2.4); Phosphorus, Blood 2.7 mg/dL (2.5-4.9); Potassium, Blood 4.4 mmol/L (3.5-5.5); Sodium, Blood 142 mmol/L (136-145)
[2024-07-27 16:22] VITALS: BP 99/68
--- NOTE | 2024-07-27 17:21 | NUR ---
SHIFT SUMMARY PT REMAINS AWAKE AND ALERT ANSWERING YES OR NO TO QUESTIONS. PT HAS DENIED ANY PAIN OR NAUSEA THIS SHIFT. BP STABLE THIS EVENING. HR REMAINS NSR. O2 SATS HAVE REMAINED ABOVE 90% ON RA. PUREWICK DEVICE IN PLACE FOR URINARY INCONTINENCE. RECTAL TUBE PLACED THIS SHIFT DUE TO FREQUENT LIQUID BM. PT TOLERATING BOLUS TUBE FEEDING VIA PUMP THIS SHIFT. DISCUSSION WITH DEPARTMENT OF SOCIOLOGY CHAIR THIS AFTERNOON AND PLAN IS TO DO GRAVITY FEEDS AND TEACH THE SPOUSE TO DO SO. SPOUSE WAS UPSET WITH ANOTHER CHANGE THIS AFTERNOON AND ASKED IF THIS RN WOULD PROVIDE THE FEED VIA THE PUMP. THIS RN EDUCATED SPOUSE ABOUT BENEFIT OF GRAVITY FEED AND SHE INSISTED ON USING THE PUMP FOR THIS FEEDING. WILL CONTINUE TO PROVIDE EDUCATION. PT REPOSITIONED Q2H. WILL REPORT OFF TO ONCOMING RN.
[2024-07-27] MEDS ORDERED: Metoclopramide HCl 10 MG Tab PT PRN (17:25)
[2024-07-27 20:42] VITALS: BP 86/53
[2024-07-28 00:24] VITALS: BP 94/68
[2024-07-28 03:42] VITALS: BP 97/70
[2024-07-28 04:33] LABS: Anion Gap 8 mmol/L (3-11); Blood Urea Nitrogen 19 mg/dL (8-24); Bun/Creatinine Ratio 44.9 (12.0-20.0); CO2, Blood 27 mmol/L (21-32); Calcium, Blood 7.7 mg/dL (8.5-10.1); Chloride, Blood 110 mmol/L (98-108); Creatinine, Blood 0.42 mg/dL (0.60-1.20); Glomerular Filtration Rate 125 (60-); Glucose, Blood 95 mg/dL (70-99); Phosphorus, Blood 2.8 mg/dL (2.5-4.9); Potassium, Blood 4.1 mmol/L (3.5-5.5); Sodium, Blood 141 mmol/L (136-145)
--- NOTE | 2024-07-28 06:27 | NUR ---
SHIFT SUMMARY ALERT, BUT ONLY ABLE TO INTERMITTENTLY MOUTH "YES" OR "NO" WELL SHAKE HIS HEAD TO QUESTIONS. SO AT BEDSIDE T/O THE NIGHT. CARDIAC, REMAINS IN SR 80-90'S WITH NO REPORTS OF CP, PRESSURE OR DIZZINESS. SBP SOFT AT THE BEGINING OF THE SHIFT, RESPONDED WELL TO SCHEDULED MIDODRINE. RESPIRATORY, MAINTAINS SPO2 >95% ON RA WITH NO REPORTS OF SOB OR DYSPNEA. /, PW IN PLACE COLLECTING CEDRIC COLORED URINE TO SUCTION. RECTAL TUBE IN PLACE WITH LIQUID BROWN STOOL NOTED. INTERMITTENT LEAKING AROUND TUBE NOTED WELL. COCCYX DRESSING CHANGED PRN TO KEEP C/D/I. TOLERATED TF WITH NO REPORTS OF N/V OR ABD TENDERNESS. REPOSITIONED Q2 HRS T/O THE NIGHT ORDERED. NO NEW ORDERS AT THIS TIME, WILL REPORT TO ONCOMING RN. RIRI TOMPKINS OF THIS NOTE.
[2024-07-28 08:58] VITALS: BP 99/64
[2024-07-28] MEDS ORDERED: Protein Supplement 30 ML UD PT SCH (09:00)
[2024-07-28 12:46] VITALS: BP 85/64
[2024-07-28 15:42] VITALS: BP 94/72
[2024-07-28] MEDS ORDERED: Midodrine 5 MG Tab PO SCH (17:00)
--- NOTE | 2024-07-28 18:04 | NUR ---
SHIFT SUMMARY PT A&O TO SELF AND PERSON, ANSWERS YES AND NO QUESTIONS APPROPRIATELY. D/T Hx OF MS IT IS DIFFICULT TO ASSESS MENTATION INDEPTH. SIGNIFICANT OTHER AT BEDSIDE TO HELP WITH CARE AND COMMUNICATION. PEG TUBE PATENT, PT TOLERATED BOLUS FEEDS TO GRAVITY. THIS RN PROVIDED EDUCATION AND DEMONSTRATION THEN OBSERVED SIGNIFICANT OTHER PREFORM BOLUS FEED & FLUSH TO GRAVITY. BP SOFT WITH MAP> 65, ASYMPTOMATIC, SINUS 90's, DENIES CP/PRESSURE. SpO2> 92% RA, DENIES SOB. MALE PUREWICK IN PLACE, PATENT WITH CEDRIC URINE OUTPUT. RECTAL TUBE REMAINS IN PLACE WITH LIQUID BROWN OUTPUT. Q2 TURNS PROVIDED. NO C/O PAIN. NO OTHER EVENTS, WILL REPORT TO ONCOMING RN.
[2024-07-28 21:46] VITALS: BP 103/63
[2024-07-29] VITALS (7 sets, daily range): BP systolic 98–113; BP diastolic 62–75
[2024-07-29 03:50] LABS: BASOPHILS ABSOLUTE AUTO 0.05 K/mm3 (0.00-0.23); BASOPHILS PERCENT AUTO 1 % (0-2); EOSINOPHILS ABSOLUTE AUTO 0.11 K/mm3 (0.00-0.68); EOSINOPHILS PERCENT AUTO 1 % (0-6); Hematocrit 23.3 % (37.0-53.0); Hemoglobin 7.3 g/dL (13.5-17.5); IMMATURE GRAN ABSOLUTE AUTO 0.29 K/mm3 (0.00-0.10); IMMATURE GRAN PERCENT AUTO 3 % (0-1); LYMPHOCYTES ABSOLUTE AUTO 1.54 K/mm3 (0.84-5.20); LYMPHOCYTES PERCENT AUTO 17 % (21-46); MONOCYTES ABSOLUTE AUTO 1.42 K/mm3 (0.16-1.47); MONOCYTES PERCENT AUTO 15 % (4-13); Mean Corpuscular HGB 26.9 pg (26.0-34.0); Mean Corpuscular HGB Conc 31.3 g/dL (31.5-36.5); Mean Corpuscular Volume 86 fL (80-100); Mean Platelet Volume 8.7 fL (9.1-12.4); NEUTROPHILS ABSOLUTE AUTO 5.87 K/mm3 (1.96-9.15); NEUTROPHILS PERCENT AUTO 63 % (41-73); Platelet Count 688 K/mm3 (150-400); RDW Standard Deviation 46.7 fL (35.1-46.3); Red Blood Cell Count 2.71 M/mm3 (4.30-5.90); White Blood Cell Count 9.28 K/mm3 (4.00-11.30)
[2024-07-29 04:00] LABS: Magnesium, Blood 2.1 mg/dL (1.6-2.4)
[2024-07-29 04:01] LABS: Anion Gap 7 mmol/L (3-11); Blood Urea Nitrogen 21 mg/dL (8-24); Bun/Creatinine Ratio 53.8 (12.0-20.0); CO2, Blood 28 mmol/L (21-32); Calcium, Blood 7.9 mg/dL (8.5-10.1); Chloride, Blood 109 mmol/L (98-108); Creatinine, Blood 0.39 mg/dL (0.60-1.20); Glomerular Filtration Rate 128 (60-); Glucose, Blood 103 mg/dL (70-99); Phosphorus, Blood 2.9 mg/dL (2.5-4.9); Potassium, Blood 4.1 mmol/L (3.5-5.5); Sodium, Blood 140 mmol/L (136-145)
--- NOTE | 2024-07-29 06:41 | NUR ---
SHIFT SUMMARY PATIENT ALERT UNABLE TO COMMUNICATE BEYOND NODDING YES AND NO. PATIENT IS CONTRACTURED AND CACHECTIC. MEDICATED PER EMAR FOR NAUSEA. DENIED CHEST PAIN/SHORTNESS OF BREATH. ON ROOM AIR WITH SPO2 >90%. PATIENT TOLERATING BOLUS FEEDS PER PEG TUBE. VITAL SIGNS STABLE. WILL CONTINUE TO MONITOR. CALL LIGHT WITHIN REACH.
[2024-07-29] MEDS ORDERED: Metoclopramide HCl 10 MG Tab PT PRN (08:20)
[2024-07-29] MEDS ORDERED: Midodrine 5 MG Tab PO SCH ×2 (09:00→13:00)
[2024-07-29] MEDS ORDERED: Banana Flakes/Tos 1 EA Powder Pack PT SCH ×2 (13:00)
[2024-07-29] MEDS ORDERED: Citalopram Hydrobromide 20 MG Tab PT SCH (16:00)
[2024-07-29] MEDS ORDERED: ARIPiprazole 5 MG Tab PT SCH (16:00)
--- NOTE | 2024-07-29 19:31 | NUR ---
SHIFT SUMMARY: ITS IJ WAS REMOVED AROUND 1600 THIS AFTERNOON. DRESSING IN PLACE WITH NO BLEEDING. TUBE FEEDINGS CONTINUED THROUGHOUT THE DAY. NO SIGNIFICANT EVENTS HAPPENED DURING THIS SHIFT. PLAN FOR PT TO POSSIBLY DC TO HOME ON MONDAY. REPORT TO JOSIANE TO ASSUME CARE OF PT AT THIS TIME.
[2024-07-29] MEDS ORDERED: Modafinil 200 MG Tab PT SCH (21:00)
--- NOTE | 2024-07-29 21:28 | NUR ---
PT UPDATE ATTEMPTING TO GIVE MODAFINIL 100MG SCHEDULED AT 2100 BUT AT BEDSIDE STATED PT ONLY TAKES MED IN THE AM AND IF IT IS GIVEN AT NIGHT, HE WILL STAY AWAKE ALL NIGHT. STATES HE HAS BEEN TAKING MED FOR 15+YEARS AND KNOWS HOW HE WILL REACT. NOTIFIED OVERNIGHT RESIDENT AND ORDERS GIVEN FOR ONCE A DAY STARTING TOMORROW, 07/30/24.
[2024-07-30 04:07] VITALS: BP 102/76
[2024-07-30 05:36] LABS: BASOPHILS ABSOLUTE AUTO 0.07 K/mm3 (0.00-0.23); BASOPHILS PERCENT AUTO 1 % (0-2); EOSINOPHILS ABSOLUTE AUTO 0.16 K/mm3 (0.00-0.68); EOSINOPHILS PERCENT AUTO 2 % (0-6); Hematocrit 24.6 % (37.0-53.0); Hemoglobin 7.8 g/dL (13.5-17.5); IMMATURE GRAN ABSOLUTE AUTO 0.31 K/mm3 (0.00-0.10); IMMATURE GRAN PERCENT AUTO 4 % (0-1); LYMPHOCYTES ABSOLUTE AUTO 1.74 K/mm3 (0.84-5.20); LYMPHOCYTES PERCENT AUTO 20 % (21-46); MONOCYTES ABSOLUTE AUTO 1.61 K/mm3 (0.16-1.47); MONOCYTES PERCENT AUTO 18 % (4-13); Mean Corpuscular HGB 27.4 pg (26.0-34.0); Mean Corpuscular HGB Conc 31.7 g/dL (31.5-36.5); Mean Corpuscular Volume 86 fL (80-100); Mean Platelet Volume 8.5 fL (9.1-12.4); NEUTROPHILS ABSOLUTE AUTO 4.88 K/mm3 (1.96-9.15); NEUTROPHILS PERCENT AUTO 56 % (41-73); Platelet Count 726 K/mm3 (150-400); RDW Coefficient Variation 15.1 % (11.7-14.2); RDW Standard Deviation 47.8 fL (35.1-46.3); Red Blood Cell Count 2.85 M/mm3 (4.30-5.90); White Blood Cell Count 8.77 K/mm3 (4.00-11.30)
--- NOTE | 2024-07-30 05:50 | NUR ---
SHIFT SUMMARY ASSUMED CARE OF PT AT APPROX 1900. PT ALERT AND CAN GIVE SOME YES/NO ANSWERS TO EASY QUESTIONS. PT'S DOES MOST OF THE VERBALIZING FOR THE PT. PT DOES NOT APPREAR TO BE SOB AND WHEN ASKED ABOUT CHEST PAIN, PT STATES NO. NO ACUTE CARDIAC CHANGES NOTED OVERNIGHT. PT PRESENTED WITH MALE PUREWICK TO SUCTION AND RECTAL TUBE IN PLACE WITH NO LEAKAGE. PT 'S QUESTIONS ANSWERED AND REFUSED A NEWLY SCHEDULED MED FOR PT ( NOTED IN PREVIOUS UPDATE). PT'S PEG TUBE PATENT WITH NO RESIDUAL AND FLUSHES TO GRAVITY WELL. PT REPOSITIONED WITH PILLOWS AND CONFIRMED MEPILEX IN PLACE. R IJ REMOVED DURING PREVIOUS SHIFT AND DRESSING C/D/I.
[2024-07-30 05:55] LABS: Albumin, Blood 2.1 g/dL (3.4-5.0); Albumin/Globulin Ratio 0.6 (0.8-1.8); Bilirubin, Total 0.2 mg/dL (0.1-1.0); Bun/Creatinine Ratio 48.2 (12.0-20.0); Calcium, Blood 8.1 mg/dL (8.5-10.1); Creatinine, Blood 0.42 mg/dL (0.60-1.20); Globulin, Blood 3.6 g/dL (2.2-4.0); Magnesium, Blood 2.1 mg/dL (1.6-2.4); Potassium, Blood 4.4 mmol/L (3.5-5.5); Total Protein, Blood 5.7 g/dL (6.4-8.2)
[2024-07-30 08:11] VITALS: BP 113/72
[2024-07-30] MEDS ORDERED: Modafinil 200 MG Tab PT SCH ×2 (09:00)
--- NOTE | 2024-07-30 12:12 | NUR ---
Ethics consult order receieved and processed. Predicating concerns discussed with the attending provider and the RD assigned to the case. With the RD having well established rapport with the S/O, it was decided that him offering some basic and gentle education on facility MPOA requirements, might be perceived as less confrontational by the information recipient. The reported outcome of this tactical approach was less than ideal. My observations and recommendations: ongoing and direct engagement with the patient for plan of care changes or other clinical decisions is an essential practice to honor and respect his dignity and autonomy. If those attempts are interrupted by the patient voluntarily deferring to his S/O for medically related responses, as long as he is not incapacitated, we must accomodate and recognize his prerogative. In the event of incapcitation, we would be legally obliged to insist that the S/O produce evidence of the MPOA assignment. If she failed to do so under those circumstances, we would default to ORS [phone] for deciding who possesses decisional privilege.
--- NOTE | 2024-07-30 12:58 | NUR ---
CARE NOTE THIS RN AND AARON JONES PROVIDED REPOSITIONING PER PT AND PT SIGNIFICANT OTHER REQUEST. SIGNIFICANT OTHER HAS BEEN ENCOURAGED BY THIS RN TO PARTICIPATE IN CARE DUE TO HER PARTICULARITY W/ PERSONAL CARE SUCH WITH REPOSITIONING, PILLOW PLACEMENT, HOB ELEVATION, ETC. PATIENTS SIGNIFICANT OTHER HILDA APPEARS ANXIOUS AND HAS VOICED MANY CONCERNS WITH TUBE FEEDINGS, RECTAL TUBE, REPOSITIONING, SUCTIONING, MEDICATIONS AND DISCHARGE. THIS RN HAS PROVIDED THERAPEUTIC COMMUNICATION TO ASSIST IN ALLEVIATING ANXIETY. THIS RN HAS BEEN AT BEDSIDE WHILE BREAD PAN GREASER ANNE SPOKE WITH PT AND PT SIGNIFICANT OTHER HILDA. HILDA HAS BEEN THOROUGHLY EDUCATED BY THIS RN WELL BY PAGE MENA REGARDING TUBE FEEDINGS AND MEDICATION REGIMEN. PER HILDA REQUEST, THIS RN PLACED CALL TO DR. CLEMENTS AND ASKED THAT HE COME TO SPEAK W/ PT AND HILDA THIS AFTERNOON. PT APPEARS COMFORTABLE AT THIS TIME, CALL LIGHT IS W/IN REACH.
[2024-07-30] MEDS ORDERED: Banana Flakes/Tos 1 EA Powder Pack PT SCH (14:00)
[2024-07-30 15:24] VITALS: BP 109/70
--- NOTE | 2024-07-30 17:13 | NUR ---
SHIFT SUMMARY PT IS ALERT, HE IS NON-VERBAL AT BASELINE DUE TO HX OF MS BUT HE APPEARS TO BE ORIENTED TO SELF, PLACE AND PERSON. HE IS BEDREST STATUS W/ Q2 TURNING TO KEEP OFF OF PRESSURE POINTS. REPOSIITONING PRN FOR COMFORT ALSO PROVIDED FREQUENTLY DURING SHIFT. VSS, HE IS ON RA. THIS RN CHANGED MEPILEX DRESSING ON COCCYX DURING SHIFT AND DRESSING IS D/C/I. OTHER MEPILEX DRESSINGS ON BILAT HEELS, ON BACK, AND ON L HIP ARE ALSO IN PLACE AND D/C/I. PW DEVICE IN PLACE AND IS CONNECTED APPROPRIATELY TO SUCITON. RECTAL TUBE IS IN PLACE, STOOL APPEARS LOOSE, BOWEL CARE PROVIDED PER EMAR ORDERS. PT'S SIGNIFICANT OTHER HILDA HAS BEEN AT BEDSIDE T/O SHIFT. PT HAS APPEARED TO TOLERATE TUBE FEEDINGS WELL HE HAS DENIED FEELINGS OF NAUSEA/VOMITTING. HE HAS DENIED FEELINGS OF CHEST PAIN/PRESSURE AND SOB. CALL LIGHT IS W/IN REACH.
[2024-07-30 20:20] VITALS: BP 126/75
[2024-07-31 03:16] VITALS: BP 110/67
--- NOTE | 2024-07-31 06:29 | NUR ---
SHIFT SUMMARY ASSUMED CARE OF PT AT APPROX 1900. PT A&O2, ORIENTED TO SELF AND YEAR, PT NOT ABLE TO EXPRESS PLACE AND SITUATION. PT DOES NOT APPEAR TO BE IN DISTRESS, VSS AND REMAINED ON RA. PT ABLE TO EXPRESS WHEN HE IS IN PAIN AND STAFF HAS BEEN REPOSITIONING PT Q2H. NO RESIDUAL ASPIRATED FROM PEG, MEDS AND BOLUS FEED GIVEN WITH NO ISSUES. MEPALEX C/D/I, NO INDICATION FOR CHANGING. FREQUENT ROUNDING WILL CONTINUE WITH PT.
[2024-07-31 07:48] VITALS: BP 114/74
--- NOTE | 2024-07-31 10:55 | NUR ---
am note this rn assumed care at 0700. vital signs stable. medical status no tele. patient signiciant other at beside, Allison, assisting with care as needed and educating staff on what position benefits the patient best. this rn listened and watched as she showed this rn. patient is oriented to self, person and intermittently on place. patient denies pain, shortness of breath or chest pain/pressure. patient lung sounds clear throughout. patient has wounds scattered throughout and has bruno prominences that are covered with mepilex for prevention and reposition every two hours and the significant other has been educated that if he appears uncomfortable she can reposition and call if needing help. purewick changed and place. rectal tube has been discontinued and patient has had a stool since then that is roberson, similar color of tube feed and loose. see shift assessment for further detials. patient received am food bolus and water this am. patient tolerated well. patient significant other, Allison, adminstered 1000 water (flush) and encouraged to get familar with the feeding and flush adminsteration as the plan is to go home tomorrow. the hospital bed for the patient should be arriving tomorrow morning per Allison. plan to go home tomorrow pending all supplies being home.
--- NOTE | 2024-07-31 13:00 | NUR ---
update Md Burgos and Vern from nutrition in to see patient and signigicant other, Allison. Md Burgos discussed plan to go home tomorrow once the hopsital bed arrives, as patient is medically stable and the care can be performed at home.
[2024-07-31 16:19] VITALS: BP 108/69
--- NOTE | 2024-07-31 16:46 | NUR ---
UPDATE Allison, signifcant other, called requesting update and wanting the staff to tay the stools on the whiteboard so she can chart in her jounral. this rn informed defective cigarette slitter to chart stools on whiteboard for the significant other. Allison worried about the banatrol flakes and having to order them. This Rn informed her care management and weigher and charger figured a solution until they arrive. Allison stating she "wasn't sure what ones to order" and this rn informed of the ones that were discussed when Md Burgos was in the room, the ones from [employer]. Plan to go home tomorrow afternoon.
--- NOTE | 2024-07-31 16:58 | NUR ---
shift summary patient significant other, Allison, has been in room throughout the shift. This RN has spent a significant amount of time in the room educating Allison on how to do bolus feeds, flushes, and medication administration. Allison was only able to demonstrate to this rn how to do the flushes as at the other times she was busy on the phone or at home perparing the house for the patient to return. This rn encouraged Allison to be here for evening feeding when this rn updated her on the phone. Allison, is the patient caregiver, and does most of the communicating when she is present for the patient. no acute changes this shift. see previous notes.
[2024-07-31 19:48] VITALS: BP 103/70
[2024-08-01] VITALS (7 sets, daily range): BP systolic 91–157; BP diastolic 53–86
--- NOTE | 2024-08-01 06:41 | NUR ---
SHIFT SUMMARY PT HAS BEEN AWAKE MOST OF THE NIGHT,REPOSITIONED Q2H,ORAL CARE COMPLETED.PT TOLERATING TUBE FEEDING,NO RESIDUALS NOTED.DENIES NAUSEA,DENIES ABDOMINAL DISCOMFORT.PT DENIES PAIN,DENIES NEEDS THIS MORNING.SPOUSE AT BEDSIDE SLEEPING.CALL LIGHT AND PT'S ITEMS WITHIN REACH.WILL REPORT TO DAYSHIFT NURSE.
--- NOTE | 2024-08-01 19:01 | NUR ---
SHIFT SUMMARY PT ALERT, ORIENTED. ANSWER YES/NO, OTHERWISE NONVERBAL. PT ARMS AND LEG CONTRACTED, REPOSITIONED Q2; REPLACED DRESSING TO HIPS AND COCCYX. 1 LOOSE BM NOTED THIS SHIFT. PT RECEIVING TUBE FEEDING PER ORDERS, APPEARS TO BE TOLERATING WITH MINIMAL RESIDUALS. ENCOURAGED CAREGIVER TO ASSIST WITH FEEDING AND MEDICATIONS ADMINISTRATION, REFUSED AT THIS TIME DUE TO MIGRAINE. OTHER VSS. NO OTHER ACUTE CHANGES NOTED. WILL CONTINUE TO MONITOR.
--- NOTE | 2024-08-01 19:30 | NUR ---
ASSUMPTION OF CARE ASSUMED CARE OF PT AT 1900,[facility]EDSIDE [facility].PT AWAKE AND ALERT,DENIES PAIN,DENIES NEEDS AT THIS TIME.SIGNIFICANT OTHER SITTING IN THE RECLINER,APPEARS DROWSY.REPORTS THAT SHE HAS A MIGRAINE.THIS NURSE ATTEMPTED TO ASK HER MORE ABOUT THE MIGRAINE BUT SHE PUT HER OPEN HAND OUT AND SHOCK HER HEAD,INDICATION THAT SHE DID NOT WANT TO TALK ABOUT IT AND SHE CLOSED HER EYES.CALL LIGHT AND PT'S ITEMS WITHIN REACH,PLAN OF CARE REVIEWED WITH PT.WILL CONTINUE TO MONITOR.
--- NOTE | 2024-08-01 23:29 | NUR ---
TRANSFER NOTE REPORT GIVEN TO RECEIVING NURSE ON MEDICAL FLOOR RM 311.PT'S BELONGINGS,MEDICATIONS AND CHART TAKEN WITH PT.PT'S SPOUSE TRANSPORTED VIA WHEELCHAIR.SHE COMPLAINED OF A MIGRAINE AND THAT HER LEGS ARE WEAK.INFORMED HER TO GO HOME AND REST IF SHE IS FEELING SICK.SHE DECLINED AND SAID THAT SHE WILL STAY WITH PT IN ROOM.
[2024-08-02 05:27] VITALS: BP 107/59
[2024-08-02 07:38] VITALS: BP 119/105
[2024-08-02 09:22] VITALS: BP 136/81
[2024-08-02] MEDS ORDERED: BANATROL PLUS1 EAC1 PO ×2 (12:05)
[2024-08-02] MEDS ORDERED: Prevacid Soluta30 MG PT ×2 (12:06)
--- NOTE | 2024-08-02 16:48 | NUR ---
DISCHARGE NOTE PATIENT ALERT, 1-2 WORD SENTENCES WITH MUMBLED SPEECH. SIGNIFICANT OTHER, HILDA, AT BEDSIDE MOST OF SHIFT. IV REMOVED PRIOR TO DISCHARGE. PEG TUBE FUNCTIONING PROPERLY, BOLUS TUBE FEEDS AND SCHEDULED FLUSHES ADMINISTERED PER ORDER THIS SHIFT. REPOSITIONED Q2 HOURS AND PRN. DISCHARGE INSTRUCTIONS DISCUSSED WITH PATIENT AND HILDA BY THIS RN AND DISCHAREG PAPERWORK COMPLETED BY ANNE FROM CASE MANAGEMENT. NO OTHER CONCERNS AT THIS TIME. PATIENT TRANSFERRED TO [facility] FOR TRANSPORTATION HOME BY [facility] STAFF AND TRANSPORTATION STAFF. HILDA ASSISTED IN TAKING ALL OF PATIENT'S BELONINGS TO HER PERSONAL VEHICLE AND WAS PROVIDED WITH TUBE FEEDING SUPPLIES.
== END 2024-08-02 17:30 | disposition home health service (06) | DRG 870 ==
LOC: ER 09:55 → ERHOLD 09:56 → ICUE 09:56 → MEDS 07-17 01:44 → ICUE 07-17 05:53 → PCU 07-23 22:25 → MEDS 08-01 23:30 → ENPENDDIS 08-02 11:49 → MEDS 08-02 17:30
PROVIDERS: Emergency Medicine; Internal Medicine; Internal Medicine Critical Care Medicine; Student in an Organized Health Care Education/Training Program; ADMIT Family Medicine
PROC: 3E033XZ Introduction of Vasopressor into Peripheral Vein, Percutaneous Approach (ICD-10-PCS; principal; 2024-07-12)
PROC: 02HV33Z Insertion of Infusion Device into Superior Vena Cava, Percutaneous Approach (ICD-10-PCS; 2024-07-12)
PROC: 5A1945Z Respiratory Ventilation, 24-96 Consecutive Hours (ICD-10-PCS; 2024-07-12)
PROC: 0BH17EZ Insertion of Endotracheal Airway into Trachea, Via Natural or Artificial Opening (ICD-10-PCS; 2024-07-12)
PROC: 3E043XZ Introduction of Vasopressor into Central Vein, Percutaneous Approach (ICD-10-PCS; 2024-07-12)
PROC: 3E03329 Introduction of Other Anti-infective into Peripheral Vein, Percutaneous Approach (ICD-10-PCS; 2024-07-12)
PROC: 0DH63UZ Insertion of Feeding Device into Stomach, Percutaneous Approach (ICD-10-PCS; 2024-07-15)
PROC: 0BH17EZ Insertion of Endotracheal Airway into Trachea, Via Natural or Artificial Opening (ICD-10-PCS; 2024-07-17)
PROC: 3E04329 Introduction of Other Anti-infective into Central Vein, Percutaneous Approach (ICD-10-PCS; 2024-07-17)
PROC: 5A1955Z Respiratory Ventilation, Greater than 96 Consecutive Hours (ICD-10-PCS; 2024-07-17)
PROC: 02HV33Z Insertion of Infusion Device into Superior Vena Cava, Percutaneous Approach (ICD-10-PCS; 2024-07-17)
PROC: 3E0436Z Introduction of Nutritional Substance into Central Vein, Percutaneous Approach (ICD-10-PCS; 2024-07-19)
DX: A41.51 Sepsis due to Escherichia coli [E. coli] (principal); E43 Unspecified severe protein-calorie malnutrition; L89.893 Pressure ulcer of other site, stage 3; J69.0 Pneumonitis due to inhalation of food and vomit; R57.1 Hypovolemic shock; R65.21 Severe sepsis with septic shock; R53.2 Functional quadriplegia; G93.41 Metabolic encephalopathy; J96.01 Acute respiratory failure with hypoxia; J18.9 Pneumonia, unspecified organism; A04.4 Other intestinal Escherichia coli infections; E87.21 Acute metabolic acidosis; N17.9 Acute kidney failure, unspecified; K56.7 Ileus, unspecified; N12 Tubulo-interstitial nephritis, not specified as acute or chronic; R64 Cachexia; Z68.1 Body mass index [BMI] 19.9 or less, adult; G35 Multiple sclerosis; D75.838 Other thrombocytosis; R74.01 Elevation of levels of liver transaminase levels; R13.10 Dysphagia, unspecified; D64.9 Anemia, unspecified; E83.39 Other disorders of phosphorus metabolism; E83.42 Hypomagnesemia; Z74.01 Bed confinement status; Z88.0 Allergy status to penicillin; Z87.891 Personal history of nicotine dependence; I10 Essential (primary) hypertension; Z78.1 Physical restraint status
CPT/HCPCS: 31500; 36415; 36556; 51702; 71045; 74176; 74177; 80048; 80053; 80069; 80202; 81001; 82330; 82533; 82947; 83605; 83735; 84100; 84478; 85025; 85027; 87040; 87070; 87086; 87106; 87205; 87507; 92610; 94002; 94003; 94640; 94760; 94762; 96361; 96365; 96366; 96368; 97110; 97112; 97162; 97166; 97530; 99291-25; 99292; A9270; C1751; C1769; J0692; J0696; J1650; J2250; J2470; J2704; J2765; J3010; J3370; J3411; J3475; J3480; J7030; J7040; J7042; J7050; J7060; J7070; J7120; J7799; P9047; Q9967

== ENCOUNTER 2024-08-03 14:46 | Emergency (ER) | payer MEDICARE, OTHER ==
[~2024-08-03] VITALS: Ht 167.6 cm; Wt 40.8 kg
[~2024-08-03 14:46] MED LIST changes: +BANATROL PLUS1 EAC1 PO; +ERGO50000 PO; +ESCI20 PO; +Prevacid Soluta30 MG PT; +ZINC50 M3 PO
[2024-08-03 15:34] LABS: BASOPHILS PERCENT AUTO 1 % (0-2); EOSINOPHILS ABSOLUTE AUTO 0.12 K/mm3 (0.00-0.68); EOSINOPHILS PERCENT AUTO 1 % (0-6); Hematocrit 28.3 % (37.0-53.0); Hemoglobin 8.9 g/dL (13.5-17.5); IMMATURE GRAN ABSOLUTE AUTO 0.32 K/mm3 (0.00-0.10); IMMATURE GRAN PERCENT AUTO 4 % (0-1); LYMPHOCYTES ABSOLUTE AUTO 0.89 K/mm3 (0.84-5.20); LYMPHOCYTES PERCENT AUTO 10 % (21-46); MONOCYTES ABSOLUTE AUTO 1.59 K/mm3 (0.16-1.47); MONOCYTES PERCENT AUTO 18 % (4-13); Mean Corpuscular HGB 27.3 pg (26.0-34.0); Mean Corpuscular HGB Conc 31.4 g/dL (31.5-36.5); Mean Corpuscular Volume 87 fL (80-100); NEUTROPHILS ABSOLUTE AUTO 5.95 K/mm3 (1.96-9.15); NEUTROPHILS PERCENT AUTO 66 % (41-73); Platelet Count 660 K/mm3 (150-400); RDW Coefficient Variation 14.9 % (11.7-14.2); RDW Standard Deviation 47.1 fL (35.1-46.3); Red Blood Cell Count 3.26 M/mm3 (4.30-5.90); White Blood Cell Count 8.97 K/mm3 (4.00-11.30)
[2024-08-03 15:54] LABS: Albumin, Blood 2.4 g/dL (3.4-5.0); Albumin/Globulin Ratio 0.6 (0.8-1.8); Bilirubin, Total 0.2 mg/dL (0.1-1.0); Bun/Creatinine Ratio 34.5 (12.0-20.0); Calcium, Blood 8.3 mg/dL (8.5-10.1); Creatinine, Blood 0.52 mg/dL (0.60-1.20); Globulin, Blood 3.9 g/dL (2.2-4.0); Potassium, Blood 4.7 mmol/L (3.5-5.5); Total Protein, Blood 6.3 g/dL (6.4-8.2)
[2024-08-03 17:28] LABS: CORONAVIRUS COVID-19 AG Negative (NEGATIVE); INFLUENZA A AG Negative (NEGATIVE); INFLUENZA B AG Negative (NEGATIVE)
[2024-08-03 23:00] VITALS: BP 128/86
== END 2024-08-03 23:08 | disposition home or self-care (01) ==
LOC: ER 14:46
PROVIDERS: Emergency Medicine
DX: R50.9 Fever, unspecified (principal); Z88.0 Allergy status to penicillin; Z79.899 Other long term (current) drug therapy
CPT/HCPCS: 71045; 80053; 85025; 87428-QW; 99284-25

== ENCOUNTER 2024-08-12 11:08 | Inpatient (IN) | payer MEDICARE, OTHER ==
[~2024-08-12] VITALS: Ht 147.3 cm; Wt 44.1 kg
[~2024-08-12 11:08] MED LIST changes: -ABILIFY MYCITE5 M2 PO; +ABILIFY MYCITE5 M2 PT; -BANATROL PLUS1 EAC1 PO; +BANATROL PLUS1 EAC1 PT; -ERGO50000 PO; +ERGO50000 PT; -MODA200 PO; +MODA200 PT
[2024-08-12] MEDS ORDERED: Acetaminophen 160MG / 5ML 10.15 UDC PO ONE (11:50)
[2024-08-12] MEDS ORDERED: Lactated Ringer's 1,000 ML IV ONE (11:50)
[2024-08-12 12:10] LABS: Base Excess Venous -5.8 mmol/L; Bicarbonate Venous 20.6 mmol/L (24.0-30.0); PCO2 Venous 22.9 mmHg (38-42); pH Blood Venous 7.49 (7.34-7.37)
[2024-08-12 12:13] LABS: Hemoglobin 9.2 g/dL (13.5-17.5); Mean Corpuscular HGB 26.3 pg (26.0-34.0); Mean Corpuscular HGB Conc 31.7 g/dL (31.5-36.5); Mean Corpuscular Volume 83 fL (80-100); Mean Platelet Volume 9.8 fL (9.1-12.4); Platelet Count 362 K/mm3 (150-400); RDW Coefficient Variation 15.7 % (11.7-14.2); RDW Standard Deviation 47.2 fL (35.1-46.3); White Blood Cell Count 25.44 K/mm3 (4.00-11.30)
[2024-08-12] MEDS ORDERED: Ondansetron HCl 2 MG / ML 2ML Vial IV ONE (12:25)
[2024-08-12 12:47] LABS: BAND PERCENT MAN 5 % (0-8); BASOPHILS PERCENT MAN 0 % (0-2); EOSINOPHILS PERCENT MAN 0 % (0-6); LYMPHOCYTES ABSOLUTE MAN 0.25 K/mm3 (0.84-5.20); LYMPHOCYTES PERCENT MAN 1 % (21-46); METAMYELOCYTE PERCENT MAN 2 % (0-0); MONOCYTES ABSOLUTE MAN 0.25 K/mm3 (0.16-1.47); MONOCYTES PERCENT MAN 1 % (4-13); MYELOCYTE PERCENT MAN 2 % (0-0); NEUTROPHILS ABSOLUTE MAN 23.91 K/mm3 (1.96-9.15); SEG NEUTROPHILS PERCENT MAN 89 % (41-73); TOTAL CELLS COUNTED 100
[2024-08-12] MEDS ORDERED: NS 1,000 ML IV SCH ×2 (12:50→16:45)
[2024-08-12 12:53] LABS: Albumin, Blood 2.1 g/dL (3.4-5.0); Albumin/Globulin Ratio 0.5 (0.8-1.8); Bilirubin, Total 0.5 mg/dL (0.1-1.0); Bun/Creatinine Ratio 42.3 (12.0-20.0); Calcium, Blood 8.6 mg/dL (8.5-10.1); Creatinine, Blood 2.08 mg/dL (0.60-1.20); Globulin, Blood 4.2 g/dL (2.2-4.0); Magnesium, Blood 2.8 mg/dL (1.6-2.4); Potassium, Blood 4.9 mmol/L (3.5-5.5); Total Protein, Blood 6.3 g/dL (6.4-8.2)
[2024-08-12] MEDS ORDERED: Cefepime HCl 2,000 MG in NS 100 ML IV ONE (12:55)
[2024-08-12 13:29] LABS: Source, Urine Foley catheter
[2024-08-12 13:55] LABS: Appearance, Urine Hazy (Clear); Blood, Urine 1+ (Neg); Color, Urine Yellow (P-Yellow); Glucose Qualitative, Urine Neg (Neg); Ketones, Urine Neg (Neg); Leukocyte Esterase, Urine 1+ (Neg); Nitrite, Urine Neg (Neg); Protein, Urine 3+ (Neg); Urobilinogen, Urine 1+ (Normal)
[2024-08-12 14:25] LABS: Bilirubin, Urine 1+ (Neg)
[2024-08-12 14:31] LABS: Bacteria Many /hpf; Calcium Oxalate Crystals Few /hpf; Granular Casts 0-2 /lpf (0); Squamous Epithelial Cells Rare /hpf (Few); Yeast/Fungi Urine Many /hpf
[2024-08-12 14:36] LABS: Influenza A, PCR NEGATIVE (NEGATIVE); Influenza B, PCR NEGATIVE (NEGATIVE); Resp Syncytial Virus, PCR NEGATIVE (NEGATIVE)
[2024-08-12 14:39] LABS: SARS-Cov-2 (COVID-19) PCR, MMC POSITIVE (NEGATIVE)
[2024-08-12] MEDS ORDERED: LevoFLOXacin 750 MG/D5W 150ML 150 ML IV ONE (15:35)
[2024-08-12] MEDS ORDERED: Dexamethasone Sod Phos 10 MG/ML 1ML VIAL IV ONE (15:35)
[2024-08-12] MEDS ORDERED: MetroNIDAZOLE 500MG/NS 100 ml 100 ML IV ONE (15:35)
[2024-08-12] MEDS ORDERED: Ipratropium/Albuterol SulF 2.5-0.5MG/3 ML Amp INH PRN (16:45)
[2024-08-12] MEDS ORDERED: FLU VACC TS2024-25(6MOS UP)/PF 45 MCG/0.5 ML SYRINGE IM SCH (16:45)
[2024-08-12] MEDS ORDERED: MetroNIDAZOLE 500MG/NS 100 ml 100 ML IV SCH (17:00)
[2024-08-12 17:50] LABS: U Amphetamine Screen Not Detected; U Barbituate Screen Not Detected; U Benzodiazapine Screen Not Detected; U Buprenorphine Screen Not Detected; U Cannabinoids Screen Not Detected; U Cocaine Screen Not Detected; U Methadone Screen Not Detected; U Methamphetamine Screen Not Detected; U Opiates Screen Not Detected; U Oxycodone Screen Not Detected; U Phencyclidine Screen Not Detected
[2024-08-12 18:30] VITALS: BP 93/68
[2024-08-12 18:45] VITALS: BP 85/61
[2024-08-12 19:00] VITALS: BP 85/62
[2024-08-12] MEDS ORDERED: LevoFLOXacin 750 MG/D5W 150ML 150 ML IV SCH (19:00)
--- NOTE | 2024-08-12 19:27 | NUR ---
ASSUMED CARE OF PATIENT PATIENT ARRIVED FROM ED TO ICU, THIS RN ASSUMED CARE OF PATIENT. PATIENT NON VERBAL AND UNABLE TO OBTAIN HISTORY AT THIS TIME. HR LOW 100'S, O2 95% ROOM AIR, AND BP STABLE. NOTED WOUNDS ON SACRUM, HIPS, AND SHINS. CONTRACTURES THROUGHOUT ALL EXTREMITIES.
[2024-08-12] MEDS ORDERED: Zinc Sulfate 220 MG Cap (Provides 50MG) PT SCH (21:00)
[2024-08-12] MEDS ORDERED: Banana Flakes/Tos 1 EA Powder Pack PT SCH (21:00)
[2024-08-12] MEDS ORDERED: Lactobacil 2-S.Thermo-Bifido 1 1 Cap PT SCH (21:00)
[2024-08-12] MEDS ORDERED: NS 1,000 ML BAG IR ONE (21:45)
[2024-08-12] MEDS ORDERED: NS 500 ML IV SCH (22:15)
[2024-08-13] VITALS (45 sets, daily range): BP systolic 86–107; BP diastolic 58–79
[2024-08-13 03:47] LABS: Hematocrit 24.4 % (37.0-53.0); Hemoglobin 7.9 g/dL (13.5-17.5); Mean Corpuscular HGB 26.8 pg (26.0-34.0); Mean Corpuscular HGB Conc 32.4 g/dL (31.5-36.5); Mean Corpuscular Volume 83 fL (80-100); Mean Platelet Volume 9.9 fL (9.1-12.4); Platelet Count 317 K/mm3 (150-400); RDW Coefficient Variation 15.9 % (11.7-14.2); RDW Standard Deviation 48.2 fL (35.1-46.3); Red Blood Cell Count 2.95 M/mm3 (4.30-5.90); White Blood Cell Count 21.13 K/mm3 (4.00-11.30)
[2024-08-13 04:13] LABS: Albumin, Blood 1.9 g/dL (3.4-5.0); Albumin/Globulin Ratio 0.5 (0.8-1.8); Bilirubin, Total 0.3 mg/dL (0.1-1.0); Bun/Creatinine Ratio 50.4 (12.0-20.0); Creatinine, Blood 1.31 mg/dL (0.60-1.20); Globulin, Blood 3.8 g/dL (2.2-4.0); Potassium, Blood 4.2 mmol/L (3.5-5.5); Total Protein, Blood 5.7 g/dL (6.4-8.2)
[2024-08-13 04:42] LABS: BAND PERCENT MAN 19 % (0-8); BASOPHILS PERCENT MAN 0 % (0-2); EOSINOPHILS PERCENT MAN 0 % (0-6); LYMPHOCYTES ABSOLUTE MAN 0.84 K/mm3 (0.84-5.20); LYMPHOCYTES PERCENT MAN 4 % (21-46); MONOCYTES ABSOLUTE MAN 0.84 K/mm3 (0.16-1.47); MONOCYTES PERCENT MAN 4 % (4-13); NEUTROPHILS ABSOLUTE MAN 19.43 K/mm3 (1.96-9.15); SEG NEUTROPHILS PERCENT MAN 73 % (41-73); TOTAL CELLS COUNTED 100
[2024-08-13] MEDS ORDERED: METOCLOPRAMIDE PT (08:27)
[2024-08-13] MEDS ORDERED: Protein Supplement 30 ML UD PT SCH (09:00)
[2024-08-13] MEDS ORDERED: Enoxaparin 40 MG/0.4 ML SYR SC SCH (09:00)
[2024-08-13] MEDS ORDERED: Citalopram Hydrobromide 20 MG Tab PT SCH (09:00)
[2024-08-13] MEDS ORDERED: ARIPiprazole 5 MG Tab PT SCH (09:00)
[2024-08-13] MEDS ORDERED: Modafinil 200 MG Tab PT SCH (09:00)
--- NOTE | 2024-08-13 10:52 | NUR ---
SHIFT UPDATE ASSUMED CARE OF PT @ 0700, PTS S/O AT BEDSIDE. PT NON-VERBAL AT BASELINE. COOPERATING WITH SIMPLE COMMANDS, OPENING MOUTH FOR ORAL CARE, TOLERATING TURNS. ON RA, SATS >90%, OCCASIONAL COUGH, SCANT OUTPUT. PEG TUBE CLAMPED, WILL START TF TODAY. BRYANT CATH PATENT, DRAINING YELLOW URINE.
[2024-08-13] MEDS ORDERED: Docusate Sodium Liquid 100 MG UDC PT PRN (12:45)
[2024-08-13] MEDS ORDERED: Magnesium Hydroxide Conc 10 ML UDC PT PRN (12:45)
[2024-08-13] MEDS ORDERED: Bisacodyl 10 MG Supp PR PRN (12:45)
[2024-08-13] MEDS ORDERED: Misc. Oral Solution PT SCH (15:30)
--- NOTE | 2024-08-13 17:26 | NUR ---
SHIFT SUMMARY PT PCU STATUS. PT ALERT, COOPERATING WITH MOST CARE. ALLOWING THIS NURSE TO PROVIDE FREQUENT ORAL CARE BUT REFUSING TURN THIS AFTERNOON, PT AND SPOUSE EDUCATED OF THE NEED FOR SKIN HEALING BUT PERSISTED TO WAIT "A BIT". REMAINS ON RA c SATS >95%, OCCASIONAL COUGH, SCANT OUTPUT. BP STABLE. TF INITIATED PRESCRIBED, PT TOLERATING WELL AT THIS TIME. ONE SMALL LIQUID BM TODAY, PT ABLE TO INDICATE WHEN SOILED. BRYANT CATH PATENT, DRAINING CEDRIC URINE, REMAINS IN PLACE DUE TO SKIN BREAKDOWN/ WOUNDS.
--- NOTE | 2024-08-13 20:00 | NUR ---
ASSUMED CARE OF PT AT 1900. REPORT RECEIVED FROM OFFGOING RN. PT PRESENTS IN BED. AT BEDSIDE. PT MAKES EYE CONTACT UPON ENTRY. PT IN NO APPARENT DISTRESS AT THIS TIME. WILL REVIEW CHART AND PLAN OF CARE FOR THIS PT.
[2024-08-13] MEDS ORDERED: Arginine/Glutamine/Calcium Hmb 1 Packet PT SCH (21:00)
[2024-08-13] MEDS ORDERED: Micafungin Sodium 100 MG in NS 100 ML IV SCH (22:00)
[2024-08-14] VITALS (35 sets, daily range): BP systolic 72–116; BP diastolic 47–78
[2024-08-14 04:09] LABS: Hemoglobin 6.9 g/dL (13.5-17.5); Mean Corpuscular HGB 26.4 pg (26.0-34.0); Mean Corpuscular HGB Conc 31.4 g/dL (31.5-36.5); Mean Corpuscular Volume 84 fL (80-100); Mean Platelet Volume 9.8 fL (9.1-12.4); NRBC ABSOLUTE 0.02 K/mm3 (0.00-0.02); NRBC Auto 0.1 /100 WBC (0.0-0.2); Platelet Count 346 K/mm3 (150-400); RDW Standard Deviation 49.3 fL (35.1-46.3); Red Blood Cell Count 2.61 M/mm3 (4.30-5.90); White Blood Cell Count 15.58 K/mm3 (4.00-11.30)
[2024-08-14 04:34] LABS: Bun/Creatinine Ratio 48.5 (12.0-20.0); Calcium, Blood 7.8 mg/dL (8.5-10.1); Creatinine, Blood 0.89 mg/dL (0.60-1.20); Magnesium, Blood 2.6 mg/dL (1.6-2.4); Phosphorus, Blood 2.1 mg/dL (2.5-4.9)
[2024-08-14] MEDS ORDERED: Acetaminophen 160MG / 5ML 10.15 UDC PT PRN (05:35)
[2024-08-14 06:40] LABS: Percent Saturation 13.9 % (20.0-50.0)
[2024-08-14] MEDS ORDERED: NS 250 ML IV PRN (07:25)
[2024-08-14] MEDS ORDERED: Potassium Phos/Sodium Phos 250 MG PACK PT SCH (09:00)
[2024-08-14] MEDS ORDERED: Multivitamins-Minerals Liquid 15 ML Oral Syringe PT SCH (09:00)
[2024-08-14] MEDS ORDERED: LevoFLOXacin 750 MG/D5W 150ML 150 ML IV SCH (09:00)
[2024-08-14 16:25] LABS: Adenovirus F 40/41 Not Detected (NOT DETECT); Astrovirus Not Detected (NOT DETECT); Campylobacter Sp Not Detected (NOT DETECT); Cryptosporidium Not Detected (NOT DETECT); Cyclospora Cayetanensis Not Detected (NOT DETECT); E. Coli O157 Not Detected (NOT DETECT); Entamoeba Histolytica Not Detected (NOT DETECT); Enteroaggregative E. coli-EAEC Not Detected (NOT DETECT); Enteropathogenic E. coli-EPEC Not Detected (NOT DETECT); Enterotoxigenic E. coli-ETEC Not Detected (NOT DETECT); Giardia Lamblia Not Detected (NOT DETECT); Norovirus GI/GII Not Detected (NOT DETECT); Plesiomonas Shigelloides Not Detected (NOT DETECT); Rotavirus A Not Detected (NOT DETECT); Salmonella Sp Not Detected (NOT DETECT); Sapovirus Not Detected (NOT DETECT); Shiga Toxin-prod E. coli-STEC Not Detected (NOT DETECT); Shigella/Enteroin E. coli-EIEC Not Detected (NOT DETECT); Vibrio Cholerae Not Detected (NOT DETECT); Vibrio Sp Not Detected (NOT DETECT); Yersinia Enterocolitica Not Detected (NOT DETECT)
[2024-08-14] MEDS ORDERED: Dextrose 5% 1,000 ML IV SCH (16:35)
--- NOTE | 2024-08-14 18:32 | NUR ---
SHIFT SUMMARY PT REMAINS ALERT TO BASELINE, FOLLOWING COMMANDS, NONVERBAL. 1U PRBC'S GIVEN THIS AM. IV FLUIDS CHANGED TO D5 @ 100ML/HR. FULL CHG BATH GIVEN, NEW PHOTOS TAKEN OF WOUNDS & MEPILEX PLACED. TF CONTINUES AT GOAL, NO N/V. 2 LOOSE BM'S TODAY, STOOL SPECIMEN SENT TO LAB. BRYANT CATH DRAINING YELLOW URINE. NO OTHER ACUTE CHANGES.
--- NOTE | 2024-08-14 19:56 | NUR ---
ASSUMED CARE OF PT AT 1900. REPORT RECEIVED AT BEDSIDE. PT HAS HAD LOOSE BM'S THIS DAY WITH NEW DIAGNOSIS OF C-DIFF. CALL MADE TO YONATAN PAGAN NP FOR FOLLOWUP ORDERS. HAVE PLACED FECAL BAG TO AID IN PROTECTION OF SKIN INTEGRITY. IN ROOM AND UPDATED ON PLAN OF CARE FOR PT. WILL REVIEW CHART AND ADDRESS PLAN OF CARE FOR THIS PT.
[2024-08-15] VITALS (19 sets, daily range): BP systolic 101–139; BP diastolic 65–86
[2024-08-15] MEDS ORDERED: Vancomycin HCl 125 MG Cap PT SCH
[2024-08-15 05:41] LABS: Hematocrit 29.4 % (37.0-53.0); Hemoglobin 9.4 g/dL (13.5-17.5); Mean Corpuscular HGB 27.5 pg (26.0-34.0); Mean Corpuscular Volume 86 fL (80-100); Mean Platelet Volume 9.8 fL (9.1-12.4); NRBC ABSOLUTE 0.03 K/mm3 (0.00-0.02); NRBC Auto 0.4 /100 WBC (0.0-0.2); Platelet Count 315 K/mm3 (150-400); RDW Standard Deviation 50.3 fL (35.1-46.3); Red Blood Cell Count 3.42 M/mm3 (4.30-5.90); White Blood Cell Count 8.43 K/mm3 (4.00-11.30)
[2024-08-15 06:03] LABS: Albumin, Blood 1.7 g/dL (3.4-5.0); Anion Gap 11 mmol/L (3-11); Blood Urea Nitrogen 24 mg/dL (8-24); Bun/Creatinine Ratio 41.7 (12.0-20.0); CO2, Blood 18 mmol/L (21-32); Chloride, Blood 122 mmol/L (98-108); Creatinine, Blood 0.58 mg/dL (0.60-1.20); Glomerular Filtration Rate 114 (60-); Glucose, Blood 97 mg/dL (70-99); Phosphorus, Blood 2.2 mg/dL (2.5-4.9); Sodium, Blood 147 mmol/L (136-145)
[2024-08-15] MEDS ORDERED: Zinc Sulfate 220 MG Cap (Provides 50MG) PT SCH (09:00)
--- NOTE | 2024-08-15 09:02 | NUR ---
THIS RN ASSUMED CARE AT 0700. PT IS ALERT AND ORIENTED TO SELF, PT HAS A HISTORY OF MS AND IS NON-VERBAL AT BASELINE. PT HEART RATE IS IN THE 70s, BLOOD PRESSURE 114/83 MAP OF 92. PT IS ON ROOM AIR SATTING >95%, NO OBJECTIVE S/S OF SHORTNESS OF BREATH. PT DOES HAVE A BRYANT DRAINING TO GRAVITY, PT ALSO HAS A TUBE FOR THE NUMEROUS AMOUNTS OF LOOSE STOOLS. PT IS POSITIVE FOR C-DIFF AND COVID. PT HAS MULTIPLE PRESSURE ULCERS ON COCCYX AREA THAT ARE LOOKING MORE HEALED THEN PREVIOUS STAY. NO OTHER INTERVENTIONS AT THIS TIME. PLAN OF CARE CONTINUED.
[2024-08-15] MEDS ORDERED: Vancomycin HCL 250 MG/5 ML 5ML Oral Syringe PT SCH (12:00)
[2024-08-15] MEDS ORDERED: Potassium Phosphate Dibasic 25 MM in Dextrose 5% 500 ML IV STA (12:45)
[2024-08-15 12:48] LABS: Stool Occult Bld Immuno 1 Positive (NEGATIVE)
--- NOTE | 2024-08-15 17:33 | NUR ---
PT SUMMARY NO NEW ACUTE EVENTS TO REPORT THROUGHOUT DAYSHIFT. THIS RN DID GET PT CLEANED UP AND ON NEW SHEET AROUND 1300. THE PRESSURE INJURIES ON THE PT COCCYX AREA ARE HEALING, THIS RN PUT NEW MELIPLEXES ON DUE TO THE OLD ONES BEING SATURATED IN STOOL. PT GOT HIS VANCOMYCIN CHANGED TO PEG TUBE. TUBE FEEDS RATE GOT CHANGED FROM 25ML/HR TO 35ML/HR. NO OTHER INTERVENTIONS AT THIS TIME. PLAN OF CARE CONTINUED.
[2024-08-15] MEDS ORDERED: Arginine/Glutamine/Calcium Hmb 1 Packet PT SCH (21:00)
[2024-08-15] MEDS ORDERED: Protein Supplement 30 ML UD PT SCH (21:00)
--- NOTE | 2024-08-15 22:00 | NUR ---
ASSUMPTION OF CARE CARE OF PT ASSUMED AT 1900 FOLLOWING REPORT FROM DAY RN. PT LYING IN BED WITH IN ROOM, IN NO APPARENT DISTRESS. PT HAS MS, IS QUADREPELIGIC, WITH CONTRACTURES THROUGHOUT. PT HAS LIMITED USE OF ALL EXTREMITIES. SINUS RYTHM IN THE 80'S WITH STABLE BP. 96% SAT OF RA. RARE COUGH PRESENT. NO CHEST PAIN OR SOB. NO AB PAIN. PEG TUBE IN PLACE WITH TUBE FEEDS AT GOAL OF 35 (JEVITY). RECTAL BAG IN PLACE WITHOUT SIGNS OF LEAKING, YET. BRYANT IN PLACE DRAINING TO GRAVITY, DARK YELLOW URINE. WILL REVIEW PLAN OF CARE AND CONTINUE APPROPRIATE. STAYS IN ROOM WITH PT OVERNIGHT.
[2024-08-16 04:09] LABS: Hematocrit 31.4 % (37.0-53.0); Hemoglobin 10.1 g/dL (13.5-17.5); Mean Corpuscular HGB 26.7 pg (26.0-34.0); Mean Corpuscular HGB Conc 32.2 g/dL (31.5-36.5); Mean Corpuscular Volume 83 fL (80-100); Mean Platelet Volume 9.9 fL (9.1-12.4); Platelet Count 309 K/mm3 (150-400); RDW Coefficient Variation 15.9 % (11.7-14.2); Red Blood Cell Count 3.78 M/mm3 (4.30-5.90); White Blood Cell Count 13.54 K/mm3 (4.00-11.30)
[2024-08-16 04:55] LABS: Albumin, Blood 1.7 g/dL (3.4-5.0); Anion Gap 14 mmol/L (3-11); Blood Urea Nitrogen 21 mg/dL (8-24); Bun/Creatinine Ratio 40.2 (12.0-20.0); CO2, Blood 17 mmol/L (21-32); Calcium, Blood 7.7 mg/dL (8.5-10.1); Chloride, Blood 110 mmol/L (98-108); Creatinine, Blood 0.52 mg/dL (0.60-1.20); Glomerular Filtration Rate 118 (60-); Glucose, Blood 106 mg/dL (70-99); Potassium, Blood 4.3 mmol/L (3.5-5.5); Sodium, Blood 137 mmol/L (136-145)
--- NOTE | 2024-08-16 07:38 | NUR ---
SHIFT SUMMARY PT LYING IN BED WITH IN ROOM, IN NO APPARENT DISTRESS. PT HAS MS, IS QUADREPELIGIC, WITH CONTRACTURES THROUGHOUT. PT HAS LIMITED USE OF ALL EXTREMITIES. SINUS RYTHM IN THE 80'S WITH STABLE BP. 96% SAT OF RA. RARE COUGH PRESENT. NO CHEST PAIN OR SOB. NO AB PAIN. PEG TUBE IN PLACE WITH TUBE FEEDS AT GOAL OF 35 (JEVITY). RECTAL BAG IN PLACE WITHOUT SIGNS OF LEAKING OF 0500. BRYANT IN PLACE DRAINING TO GRAVITY, DARK YELLOW URINE- TOTAL OF 600 OUT FOR 12 HOURS. REMAINED IN ROOM WITH PT OVERNIGHT.
[2024-08-16 07:52] VITALS: BP 116/80
[2024-08-16 08:00] VITALS: BP 124/76
[2024-08-16] MEDS ORDERED: Enoxaparin 30 MG/0.3 ML SYR SC SCH (09:00)
--- NOTE | 2024-08-16 09:26 | NUR ---
AM NOTE... ASSUMED CARE OF PT AT 0700, PT IS AWAKE AND ALERT, MOANING RESPONSES. HE IS IN SR IN THE 90'S BP IS STABLE WITH MAPS>65. PT IS ON RA WITH O2 SATS>95% L/S COARSE T/O DIM IN THE BASES. PEG TUBE IS RUNNING TUBE FEEDS PER ORDERS. BT PRESENT AND HYPOACTIVE, ABD TENDER TO PALPATION. RECTAL BAG IN PLACE, BRYANT IS PATENT AND DRAINING TO GRAVITY.
[2024-08-16] MEDS ORDERED: MetroNIDAZOLE 500MG/NS 100 ml 100 ML IV SCH (13:48)
[2024-08-16 17:00] VITALS: BP 98/87
--- NOTE | 2024-08-16 17:47 | NUR ---
PT TRANSFER... PT WAS TRANSFERED TO THE MEDICAL FLOOR RM 338. REPORT GIVEN TO ERIC JOHNSON. PT'S VS STABLE AT THE TIME OF TRANSFER. ALL PT'S BELONGINGS WERE PACKED AND SENT WITH THE PT. THE PT'S RECTAL BAG WAS REMOVED D/T THE STOOL BECOMING THICK AND UNABLE TO DRAIN WELL. ALL PT'S BELONGINGS WERE PACKED BY THE S.O. AND STAFF AND SENT WITH THE PT.
[2024-08-16] MEDS ORDERED: Vancomycin HCL 250 MG/5 ML 5ML Oral Syringe PT SCH (18:00)
[2024-08-16 18:08] VITALS: BP 96/66
--- NOTE | 2024-08-16 19:43 | NUR ---
shift summary- PT TRANSFERED FROM ICU 10 TO THIS ROOM AT 1745. PT SPOUSE IS AT THE BEDSIDE AND IS VERY INFORMED ABOUT HIS CARE. SHE ASSISTS WITH SUCTIONING AND ORAL CARE. PT IN BED REPOSITIONED ON PILLOWS GIUDED BY THE SPOUSE. TUBE FEED WAS RESUMED PER MD ORDER WITH Q2 HOUR FLUSHES OF 100ML. BP HYPOTENSIVE TEMP 100.1. BEDSIDE REPORT COMPLETED WITH NIGHT RN. NO CURRENT S&S OF DISTRESS NOTED. SPOUSE AT THE BEDSIDE.
[2024-08-16 20:07] VITALS: BP 98/74
[2024-08-17 02:00] VITALS: BP 99/73
--- NOTE | 2024-08-17 05:59 | NUR ---
SHIFT SUMMARY PT ALERT, NONVERBAL DUE TO MS BUT ABLE TO MUMBLE AND MAKES NEEDS KNOWN. ORIENTATION TO SELF AND PERSON, UNABLE TO ASSESS TIME AND PLACE. PT VSS. BLOOD PRESSURE IS ON THE SOFT SIDE BUT NO SYMPTOMS NOTED. PT REPOSITIONED Q2HRS. PT PEG TUB INFUSING CONTINUOUS FEEDINGS AT 35ML/HR. PT SPENT ALL OF SHIFT IN BED RESTING. PT MEDICATED PER EMAR. PT SPOUSE AT BEDSIDE AND ASSISTS W/ CARE. FALL PRECAUTIONS IN PLACE AND CALL LIGHT IN REACH.
[2024-08-17 06:15] LABS: Hematocrit 31.3 % (37.0-53.0); Hemoglobin 10.5 g/dL (13.5-17.5); Mean Corpuscular HGB 27.8 pg (26.0-34.0); Mean Corpuscular HGB Conc 33.5 g/dL (31.5-36.5); Mean Corpuscular Volume 83 fL (80-100); Mean Platelet Volume 9.7 fL (9.1-12.4); Platelet Count 309 K/mm3 (150-400); RDW Coefficient Variation 15.6 % (11.7-14.2); Red Blood Cell Count 3.78 M/mm3 (4.30-5.90); White Blood Cell Count 11.33 K/mm3 (4.00-11.30)
[2024-08-17 06:56] LABS: Albumin, Blood 1.7 g/dL (3.4-5.0); Albumin/Globulin Ratio 0.5 (0.8-1.8); Bilirubin, Total 0.3 mg/dL (0.1-1.0); Bun/Creatinine Ratio 64.2 (12.0-20.0); Calcium, Blood 7.7 mg/dL (8.5-10.1); Creatinine, Blood 0.41 mg/dL (0.60-1.20); Globulin, Blood 3.5 g/dL (2.2-4.0); Potassium, Blood 3.8 mmol/L (3.5-5.5); Total Protein, Blood 5.2 g/dL (6.4-8.2)
[2024-08-17 08:02] VITALS: BP 115/85
--- NOTE | 2024-08-17 08:04 | NUR ---
ASSUMED CARE OF PATIENT. AWAKE DURING SHIFT REPORT; LYING ON LEFT SIDE FACING WINDOW. PEG TUBE FEEDING @ 35mL/hr.
[2024-08-17 09:11] LABS: BAND PERCENT MAN 3 % (0-8); BASOPHILS PERCENT MAN 0 % (0-2); EOSINOPHILS PERCENT MAN 0 % (0-6); LYMPHOCYTES % ATYPICAL MANUAL 1 % (0-0); LYMPHOCYTES ABSOLUTE MAN 0.67 K/mm3 (0.84-5.20); LYMPHOCYTES PERCENT MAN 5 % (21-46); METAMYELOCYTE ABSOLUTE MAN 0.22 K/mm3 (0.00-0.00); METAMYELOCYTE PERCENT MAN 2 % (0-0); MONOCYTES ABSOLUTE MAN 0.33 K/mm3 (0.16-1.47); MONOCYTES PERCENT MAN 3 % (4-13); NEUTROPHILS ABSOLUTE MAN 10.08 K/mm3 (1.96-9.15); SEG NEUTROPHILS PERCENT MAN 86 % (41-73); TOTAL CELLS COUNTED 100
--- NOTE | 2024-08-17 11:20 | NUR ---
PATIENT APPEARS DYSPNIC. RT HAS ASSESSED AND ADMINISTERED BREATHING Tx. SUBSTERNAL AND INTERCOSTAL RETRACTIONS. "GUPPY BREATHING". STATES HE DOESN'T USUALLY BREATHE LIKE THIS BUT SHE HAS NOTED HE HAS A LOT OF NASAL CONGESTION AND SHE "HEARS A GURGLE IN HIS THROAT". DR. BURTON NOTIFIED VIA PHONE AND WILL COME TO ASSESS SHORTLY.
--- NOTE | 2024-08-17 11:28 | NUR ---
DR BURTON TO BEDSIDE: VERBAL ORDERS FOR STAT CXR AND VBGs TO R/O ASPIRATION PNA.
[2024-08-17 11:43] LABS: Base Excess Venous -5.9 mmol/L; Bicarbonate Venous 19.9 mmol/L (24.0-30.0); pH Blood Venous 7.34 (7.34-7.37)
--- NOTE | 2024-08-17 12:35 | NUR ---
RT TO BEDSIDE FOR BiPap APPLICATION.
[2024-08-17] MEDS ORDERED: LORazepam 2 MG/ML 1ML Injection IV PRN (12:40)
--- NOTE | 2024-08-17 13:28 | NUR ---
TELE APPLIED. PATIENT HEART RATE LABILE RANGING FROM 30s TO 150s.
--- NOTE | 2024-08-17 15:18 | NUR ---
REPORT TO ALEX HESS. PATIENT TRANSPORTED TO PCU c THIS RN, NICOL DIEZ AND RT HAMZAH.
[2024-08-17 15:40] VITALS: BP 91/68
--- NOTE | 2024-08-17 16:09 | NUR ---
PT TRANSFERED TO U 04 FROM [facility]. REPORT FROM NAEEM JOHNSON. PT IS ALERT, NONVERBAL. MULTIPLE CONTRACTURES, PILLOWS POSITIONED FOR ALL LIMBS. PT LEANING MORE TO THE RIGHT. HE IS ON 16/8 W/ 5L BLEED IN. SP02 100%. ON TELE HE IS ST 100'S-110'S. BP SOFT BUT STABLE. RESP 24. PT WENT FOR CT-PE SHORTLY AFTER ARRIVING TO THE ROOM. BACK IN THE BED. PT'S IN THE ROOM. RESIDULES WERE CHECKED IN THE PT'S PEG TUBE AND NOTHING WAS ASPIRATED BUT AIR. DR. BURTON WAS CALLED AND HE STATED HE DOES WANT TO RESUME THE TUBE FEEDING. HE IS KEEPING AN EYE OUT FOR THE CT PE STUDY. SEE NOTES FOR UPDATES.
--- NOTE | 2024-08-17 16:45 | NUR ---
PT SWITCHED FROM THE BIPAP 16/8 W/ 5L BLEED IN TO 3.5 L NC. RESPIRATIONS REMAIN AT 24 ON THE NC. PT VERY SOFTLY SAID NO TO SOB OR ANY PAINS. HE DOES HAVE A WEAK COUGH AND HAS COUGHED UP SCANT WHITE THICK SPUTUM.
[2024-08-17] MEDS ORDERED: Metoclopramide HCl 10 MG Tab PT PRN (16:55)
--- NOTE | 2024-08-17 17:34 | NUR ---
TF RESUMED PER ORDER. CT-PE POSITIVE FOR PE. HEPARIN GTT CONSULT ORDERED. WAITING FOR ORDERS FROM PHARMACY.
[2024-08-17 17:57] LABS: Anti-Xa UFH, PHA Monitoring <0.10 IU/mL; International Normalized Ratio 1.09; Prothrombin Time Results 11.6 Sec (9.7-11.5)
[2024-08-17] MEDS ORDERED: Heparin Sodium,Porcine/0.5 NS 500 ML IV SCH (18:05)
--- NOTE | 2024-08-17 18:22 | NUR ---
HEP GTT INFUSING NOW PER EMAR.
[2024-08-17 19:29] VITALS: BP 91/70
--- NOTE | 2024-08-17 23:13 | NUR ---
ASSUMPTION OF CARE ASSUMED PT'S CARE AT 1900,BEDSIDE REPORT COMPLETED.PT RESTING IN BED,SIGNIFICANT OTHER AT BEDSIDE.PLAN OF CARE REVIEWED WITH PT AND SIGNIFICANT OTHER.TUBE FEED INFUSING ORDERED,HEPARIN GTT INFUSING ORDERED.CALL LIGHT AND PT'S ITEMS WITHIN REACH.WILL CONTINUE TO MONITOR.
[2024-08-17 23:44] VITALS: BP 133/85
[2024-08-18] VITALS (34 sets, daily range): BP systolic 79–146; BP diastolic 50–89
--- NOTE | 2024-08-18 01:31 | NUR ---
CARE NOTE NURSE CALLED INTO ROOM BY PT'S SIGNIFICANT OTHER AT 2344 REPORTED THAT PT HAVING A DIFFICULT TIME BREATHING.PT NOTED TO HAVE INCREASED WORK OF BREATHING,TACHYPNEIC AT 24,TACHYCARDIC AT 114,DIAPHORETIC.PT'S OXYGEN SATURATION >96% ON 2L NC.RESPIRATORY THERAPIST NOTIFIED.PT SWITCHED TO BIPAP,PRN ATIVAN 2 MG IV GIVEN FOR ANXIETY.PT'S BREATHING IMPROVED SHORTLY AFTER.WILL CONTINUE TO MONITOR.
[2024-08-18] MEDS ORDERED: Dose Adjust by Pharmacy XX STA ×3 (02:29→16:35)
[2024-08-18] MEDS ORDERED: Lansoprazole 15 MG TAB.RAP.DR PT SCH ×2 (06:00→07:30)
--- NOTE | 2024-08-18 06:12 | NUR ---
SHIFT SUMMARY PT SLEPT BETTER WITH BIPAP ON.NO S/S OF PAIN/DISCOMFORT.REPOSITIONED Q2H AND PRN PER SIGNIFICANT OTHER'S REQUEST.SIGNIFICANT OTHER AT BEDSIDE THE WHOLE NIGHT.ORAL CARE COMPLETED Q2H WITH TURNS.TOLERATING TUBE FEEDING WELL,NO RESIDUAL,NO C/O NAUSEA/VOMITING.PT HAD ONE LOOSE BM.PT STILL ASLEEP AT THIS TIME.CALL LIGHT AND PT'S ITEMS WITHIN REACH.WILL GIVEN REPORT TO DAYSHIFT NURSE FOR CONTINUITY OF CARE.
[2024-08-18 07:45] LABS: BASOPHILS ABSOLUTE AUTO 0.05 K/mm3 (0.00-0.23); BASOPHILS PERCENT AUTO 0 % (0-2); EOSINOPHILS ABSOLUTE AUTO 0.12 K/mm3 (0.00-0.68); EOSINOPHILS PERCENT AUTO 1 % (0-6); Hematocrit 33.5 % (37.0-53.0); Hemoglobin 10.5 g/dL (13.5-17.5); IMMATURE GRAN PERCENT AUTO 3 % (0-1); LYMPHOCYTES ABSOLUTE AUTO 1.34 K/mm3 (0.84-5.20); LYMPHOCYTES PERCENT AUTO 7 % (21-46); MONOCYTES PERCENT AUTO 7 % (4-13); Mean Corpuscular HGB 26.6 pg (26.0-34.0); Mean Corpuscular HGB Conc 31.3 g/dL (31.5-36.5); Mean Corpuscular Volume 85 fL (80-100); Mean Platelet Volume 9.6 fL (9.1-12.4); NEUTROPHILS ABSOLUTE AUTO 17.08 K/mm3 (1.96-9.15); NEUTROPHILS PERCENT AUTO 83 % (41-73); Platelet Count 339 K/mm3 (150-400); RDW Coefficient Variation 15.9 % (11.7-14.2); RDW Standard Deviation 49.9 fL (35.1-46.3); Red Blood Cell Count 3.94 M/mm3 (4.30-5.90); White Blood Cell Count 20.59 K/mm3 (4.00-11.30)
--- NOTE | 2024-08-18 08:00 | NUR ---
Jackson of care: Patient with advanced MS which affects his ability to communicate. Is non-verbal for me with limited movement due to contractures. In ST in 100-120s with SBP 140. On the BiPAP currently with coarse lung sounds throughout & weak, congested cough. Definitely experiencing some increased work of breathing & is tachypneic at rest with a rate between 24-30 but oxygen saturations maintaining in high 90s. Is incontinent of bladder & bowel with a large liquid BM & saturated diaper on my assessment -- luis daniel care completed & fresh pads placed. TF infusing at goal via PEG tube. Multiple areas of skin breakdown noted to bilat hips, coccyx, & groin. Fresh dressings placed to these areas. PIV x2 in place with heparin gtt infusing at 22 u/kg/hr. Partner updated at bedside. Will discuss concerns regarding respiratory status when Dr. Del Angel rounds.
[2024-08-18 08:11] LABS: Albumin, Blood 1.8 g/dL (3.4-5.0); Albumin/Globulin Ratio 0.5 (0.8-1.8); Bilirubin, Total 0.3 mg/dL (0.1-1.0); Bun/Creatinine Ratio 77.3 (12.0-20.0); Calcium, Blood 7.8 mg/dL (8.5-10.1); Creatinine, Blood 0.36 mg/dL (0.60-1.20); Globulin, Blood 3.4 g/dL (2.2-4.0); Potassium, Blood 4.2 mmol/L (3.5-5.5); Total Protein, Blood 5.2 g/dL (6.4-8.2)
[2024-08-18] MEDS ORDERED: Citalopram Hydrobromide 10 MG TAB PT SCH (09:12)
[2024-08-18] MEDS ORDERED: LevoFLOXacin 500MG/D5W 100ML 100 ML IV SCH (09:14)
[2024-08-18] MEDS ORDERED: Heparin Sodium 5000 Units/ML 1ML MDV IV ONE ×2 (09:50→16:35)
[2024-08-18] MEDS ORDERED: Meropenem 1,000 MG in NS 100 ML IV SCH (14:31)
--- NOTE | 2024-08-18 17:33 | NUR ---
SHIFT SUMMARY PT ARRIVED TO ICU FROM PCU, TRANSFERRED TO BED VIA SLIDER SHEET. PT ALERT TO BASELINE UPON ARRIVAL, OPENING EYES, TRACKING NURSE, GIVING THUMBS UP AND SHAKING HEAD TO QUESTIONS. NON-VERBAL MOSTLY AT BASELINE, OCCASIONALLY MUMBLES. SEVERE CONTRACTURES AT BASELINE, MOBILITY LIMITED. ON BIPAP-16/8 c 2LPM O2, SATS >90%, TOLERATING WELL. TF INFUSING VIA PEG TUBE AT GOAL. LARGE LOOSE BM THIS AFTERNOON, INCONTINENT OF URINE AND STOOL. Q2 TURNS AND ORAL CARE. MULTIPLE WOUNDS, SEE ASSESSMENT AND PICTURES. SPOUSE AT BEDSIDE.
[2024-08-18 20:10] LABS: Acinetobacter baumannii DNA Detected Bin 10^4 copy/mL (NOT DETECT); Enterobacter cloacae DNA Detected Bin 10^5 copy/mL (NOT DETECT); Escherichia coli DNA Not Detected copy/mL (NOT DETECT); Haemophilus influenzae DNA Not Detected copy/mL (NOT DETECT); Klebsiella aerogenes DNA Not Detected copy/mL (NOT DETECT); Klebsiella oxytoca DNA Not Detected copy/mL (NOT DETECT); Klebsiella pneumoniae DNA Detected Bin 10^6 copy/mL (NOT DETECT); Moraxella catarrhalis DNA Not Detected copy/mL (NOT DETECT); Proteus sp DNA Detected Bin 10^4 copy/mL (NOT DETECT); Pseudomonas aeruginosa DNA Detected Bin 10^6 copy/mL (NOT DETECT); Serratia marcescens DNA Not Detected copy/mL (NOT DETECT); Staphylococcus aureus DNA Not Detected copy/mL (NOT DETECT); Streptococcus agalactiae DNA Not Detected copy/mL (NOT DETECT); Streptococcus pneumoniae DNA Not Detected copy/mL (NOT DETECT); Streptococcus pyogenes DNA Not Detected copy/mL (NOT DETECT)
[2024-08-18 20:11] LABS: CTX-M Resistance Gene Detected; Chlamydia pneumonia Not Detected (NOT DETECT); IMP Resistance Gene Not Detected; KPC Resistance Gene Not Detected; Legionella pneumophila Not Detected (NOT DETECT); Mycoplasma pneumoniae Not Detected (NOT DETECT); NDM Resistance Gene Not Detected; OXA-48-like Resistance Gene Not Detected; VIM Resistance Gene Not Detected
[2024-08-18 20:12] LABS: Adenovirus DNA Not Detected (NOT DETECT); Human Coronavirus RNA Not Detected (NOT DETECT); Human Metapneumovirus RNA Not Detected (NOT DETECT); Influenza virus A RNA Not Detected (NOT DETECT); Influenza virus B RNA Not Detected (NOT DETECT); Parainfluenza virus RNA Not Detected (NOT DETECT); Respiratory syncytial Vir RNA Not Detected (NOT DETECT); Rhinovirus+Enterovirus RNA Not Detected (NOT DETECT)
[2024-08-18] MEDS ORDERED: Lactobacil 2-S.Thermo-Bifido 1 1 Cap PO SCH (21:00)
--- NOTE | 2024-08-18 21:32 | NUR ---
ASSUMPTION OF CARE: ASSUMED CARE OF PT AT 1915. PT ALERT AND ORIENTED TO SELF. MUMBLES WHEN ASKED QUESTIONS. ABLE TO SHAKE HEAD YES/NO TO SIMPLE QUESTIONS AND GIVE A THUMBS UP. ALSO SQUEEZES LEFT HAND. PT HAS CONTRACTURES ON RIGHT SIDE AND LEFT LEG. ON BIPAP 08/02 WITH 2L BLEED IN. SPO2 HIGH 90'S. LUNGS COARSE. ECHO VASCULAR TECHNOLOGIST IN PLACE, SR/ST WITH HR 90-100'S. SBP 70-80'S. PEG TUBE IN PLACE WITH TF AT 35 ML/HR. HEPARIN AT 28 UNITS/KG/HR. PIV TO LH AND LFA BOTH INTACT. INCONTINENT OF BOWEL/BLADDER, ATTENDS IN PLACE. PT AT THE BEDSIDE. BED LOW AND LOCKED, CALL LIGHT IN REACH.
[2024-08-19] VITALS (43 sets, daily range): BP systolic 77–122; BP diastolic 51–86
[2024-08-19] MEDS ORDERED: Clarify Drug Order XX ONE ×2 (00:30→06:30)
[2024-08-19 05:12] LABS: Hematocrit 30.3 % (37.0-53.0); Hemoglobin 9.8 g/dL (13.5-17.5); Mean Platelet Volume 9.7 fL (9.1-12.4); Platelet Count 394 K/mm3 (150-400)
--- NOTE | 2024-08-19 06:39 | NUR ---
SHIFT SUMMARY: PT ABLE TO REST THIS SHIFT. AWAKENS TO VERBAL STIMULI, SQUEEZES HAND ON LEFT AND NODS HEAD YES/NO. PT ON BIPAP T/O THE NIGHT, SETTINGS UNCHANGED, SPO2 HIGH 90'S. MENDER HAND IN PLACE, SR/ST WITH HR 90-100'S. SBP 90'S. HEPARIN GTT AT 28 UNITS/KG/HR. PIVS INTACT. TUBE FEED CONTINUES AT 35 ML/HR THROUGH PEG TUBE. PT INCONT OF BOWEL AND BLADDER, ATTENDS IN PLACE. PT AT THE BEDSIDE, BED LOW AND LOCKED.
--- NOTE | 2024-08-19 10:45 | NUR ---
SHIFT ASSESSMENT ASSUMED CARE OF PT @ 0700. PT ALERT TO BASELINE, AWAKENS EASILY TO VERBAL STIMULI. OPENING EYES, TRACKING NURSE, ACTUALLY VERBALIZING YES, NO, & THANK YOU THIS AM (VERY HARD TO UNDERSTAND). INITIALLY ON BIPAP, TRANSITIONED TO 2LPM VIA NC, NOW ON RA c SATS >97%, NO S/S OF SOB. BP STABLE, HR IN THE 90'S. PEG TUBE WITH TF @ GOAL. PT INCONTINENT OF 1 LARGE BM AND URINE, SKIN CLEANSED, NEW MEPILEX PLACED TO COCCYX AND HIPS. MALE PUREWICK PLACED. S/O AT BEDSIDE.
--- NOTE | 2024-08-19 18:29 | NUR ---
SHIFT SUMMARY PT REMAINS ALERT TO BASELINE, RESPONDING TO QUESTIONS WITH YES/ NO, MORE CLEAR VERBAL RESPONSES THIS EVENING. FOLLOWING COMMANDS, TOLERATING Q2H TURNS WELL, ASSISTING WITH LIFTING LEFT ARM, OTHERWISE QUITE CONTRACTED. ON RA, SATS >90%, NO S/S OF RESP DISTRESS. OCCASIONAL COUGH, SCANT AMNT OF SPUTUM. HEPARING INFUSING @ PRESCRIBED RATE. PEG TUBE WITH TF @ GOAL OF 45ML/HR. MULTIPLE LOOSE BM'S TODAY, STOOL COLLECTION BAG IN PLACE. PUREWICK DRAINING YELLOW URINE. Q2HR TURNS, MEPILEX DRESSINGS CHANGED MULTIPLE TIMES TODAY. SPOUSE AT BEDSIDE, UPDATED T/O THE DAY.
[2024-08-20] VITALS (21 sets, daily range): BP systolic 84–118; BP diastolic 56–75
[2024-08-20 04:02] LABS: BASOPHILS ABSOLUTE AUTO 0.02 K/mm3 (0.00-0.23); BASOPHILS PERCENT AUTO 0 % (0-2); EOSINOPHILS ABSOLUTE AUTO 0.17 K/mm3 (0.00-0.68); EOSINOPHILS PERCENT AUTO 2 % (0-6); Hematocrit 25.3 % (37.0-53.0); Hemoglobin 8.4 g/dL (13.5-17.5); Mean Corpuscular HGB 27.2 pg (26.0-34.0); Mean Corpuscular HGB Conc 33.2 g/dL (31.5-36.5); Mean Corpuscular Volume 82 fL (80-100); Mean Platelet Volume 9.7 fL (9.1-12.4); Platelet Count 448 K/mm3 (150-400); RDW Coefficient Variation 16.2 % (11.7-14.2); RDW Standard Deviation 48.5 fL (35.1-46.3); Red Blood Cell Count 3.09 M/mm3 (4.30-5.90); White Blood Cell Count 11.07 K/mm3 (4.00-11.30)
[2024-08-20 04:04] LABS: IMMATURE GRAN ABSOLUTE AUTO 0.52 K/mm3 (0.00-0.10); IMMATURE GRAN PERCENT AUTO 5 % (0-1); LYMPHOCYTES ABSOLUTE AUTO 1.95 K/mm3 (0.84-5.20); LYMPHOCYTES PERCENT AUTO 18 % (21-46); MONOCYTES ABSOLUTE AUTO 1.08 K/mm3 (0.16-1.47); MONOCYTES PERCENT AUTO 10 % (4-13); NEUTROPHILS ABSOLUTE AUTO 7.33 K/mm3 (1.96-9.15); NEUTROPHILS PERCENT AUTO 66 % (41-73)
[2024-08-20 04:29] LABS: Magnesium, Blood 1.8 mg/dL (1.6-2.4)
--- NOTE | 2024-08-20 04:29 | NUR ---
SHIFT SUMMARY PT HAS TOLERATED SHIFT WITH NO CHANGES IN CONDITION. PT IS ABLE TO ANSWER YES NO QUESTIONS AND IS ORIENTED TO SELF. PT HEART RATE REMAINS NORMAL SINUS RHYTHM WITH NORMAL BLOOD PRESSURES ABOVE MAP OF 65. PTS LUNG SOUNDS ARE CLEAR AND DIM. PT HAS A MALE PUREWICK THAT HAS WORKED WELL. PT ALSO HAS RECTAL BAG AND HAS HAD REGULAR OUTPUT. PTS IVs IN LEFT ARM WORK WELL AND HE HAS BEEN TURNED Q2 HOURS TO PREVENT OLD SORES FROM GETTING WORSE AND NEW SORES FROM DEVELOPING. WILL CONTINUE TO MONITOR UNTIL REPORT PASSED TO DAY SHIFT TEAM.
[2024-08-20 04:44] LABS: Bun/Creatinine Ratio 84.5 (12.0-20.0); Creatinine, Blood 0.34 mg/dL (0.60-1.20); Phosphorus, Blood 0.8 mg/dL (2.5-4.9); Potassium, Blood 3.7 mmol/L (3.5-5.5)
[2024-08-20] MEDS ORDERED: Clarify Drug Order XX ONE (05:05)
[2024-08-20] MEDS ORDERED: Potassium Phosphate Dibasic 30 MM in Dextrose 5% 500 ML IV ONE (06:00)
[2024-08-20] MEDS ORDERED: Rivaroxaban 10 MG Tab PO SCH (18:00)
--- NOTE | 2024-08-20 18:37 | NUR ---
SHIFT SUMMARY PATIENT REMAINS AWAKE AND ALERT TO BASELINE. ABLE TO RESPOND TO YES/NO TO QUESTIONS. SPEECH REMAINS MUMBLED. FOLLOWS COMMANDS ABLE TO MOVE L WRIST INDEPENDENTLY. Q 2 TURNS TODAY REFUSED SOME Q2 TURNS TODAY, PREFERED TO LAY ON LEFT SIDE. SLEPT WELL FOR ABOUT 4HRS THEN PATIENT AGREEABLE TO TURNS. ALL LIMBS REMAIN CONTRACTED. OCCASIONAL COUGH TODAY, POOR COUGH, NOTHING EXPECORATED FOR ME TODAY. FINE BIBASILAR COARSE CRACKLES THROUGH OUT. O2 SATS GREATER THAN 95% ON RA. RECTAL BAG REMAINS IN PLACE, BAG CHANGED TODAY. LIQUID DARK BROWN STOOLS BUT NOT WATERY 200ML OUT THIS SHIFT. MALE PUREWICK IN PLACE AND CONNECTED TO SUCTION. HEPARIN D/C. XARELTO STARTED. PATIENT STATUS CHANGED TO PCU. MEPLIEX DRESSING REMAIN C/D/I. INTO VISIT TODAY.
--- NOTE | 2024-08-20 23:03 | NUR ---
ASSUMPTION OF CARE REPORT RECIEVED FROM DAY SHIFT NURSE. PT APPEARS IN GOOD SPIRITS TODAY. PT ABLE TO ANSWER YES/NO QUESTIONS WITH SLIGHTLY MUMBLED AND SOMETIMES DELAYED ANSWERS. PT REMAINS ABLE TO USE LEFT HAND TO SQUEEZE FINGERS TO COMMUNICATE WELL. PTs HEART RATE IS IN THE 80s-90s AND IS SINUS RHYTHM. PT IS ON ROOM AIR AND SPO2 READS 96%. LUNG SOUNDS ARE CLEAR AND DIM. PT HAS RECTAL BAG IN PLACE THAT APPEARS TO BE SEALED WELL TO HIM. PT HAS MALE PUREWICK IN PLACE THAT ALSO APPEARS TO BE WORKING WELL AT THIS TIME. PTs PREVIOUS WOUNDS REMAIN COVERED WITH MEPELEX BANDAGES. IVs ARE PATENT, FLUSHING WELL AND WILL REMAIN SALINE LOCKED AT THIS TIME. PTs PEG TUBE IS STILL RECIEVING TUBE FEEDS AT 45MLS PER HOUR WITH NO ISSUE. PT DECLINES BEING REPOSITIONED AT THIS TIME. WILL CONTINUE TO MONITOR FOR REMAINDER OF SHIFT.
[2024-08-21] VITALS (27 sets, daily range): BP systolic 77–117; BP diastolic 54–90
[2024-08-21 03:28] LABS: Hematocrit 25.1 % (37.0-53.0); Hemoglobin 8.3 g/dL (13.5-17.5); Mean Corpuscular HGB 27.3 pg (26.0-34.0); Mean Corpuscular HGB Conc 33.1 g/dL (31.5-36.5); Mean Corpuscular Volume 83 fL (80-100); Mean Platelet Volume 9.2 fL (9.1-12.4); Platelet Count 498 K/mm3 (150-400); RDW Coefficient Variation 16.4 % (11.7-14.2); Red Blood Cell Count 3.04 M/mm3 (4.30-5.90); White Blood Cell Count 10.55 K/mm3 (4.00-11.30)
[2024-08-21 03:51] LABS: Bun/Creatinine Ratio 79.8 (12.0-20.0); Calcium, Blood 7.7 mg/dL (8.5-10.1); Creatinine, Blood 0.33 mg/dL (0.60-1.20); Magnesium, Blood 1.6 mg/dL (1.6-2.4); Percent Saturation 16.2 % (20.0-50.0); Phosphorus, Blood 1.1 mg/dL (2.5-4.9)
[2024-08-21 04:13] LABS: BAND PERCENT MAN 1 % (0-8); BASOPHILS ABSOLUTE MAN 0.21 K/mm3 (0.00-0.23); BASOPHILS PERCENT MAN 2 % (0-2); EOSINOPHILS ABSOLUTE MAN 0.31 K/mm3 (0.00-0.68); EOSINOPHILS PERCENT MAN 3 % (0-6); LYMPHOCYTES % ATYPICAL MANUAL 2 % (0-0); LYMPHOCYTES ABSOLUTE MAN 1.05 K/mm3 (0.84-5.20); LYMPHOCYTES PERCENT MAN 8 % (21-46); METAMYELOCYTE PERCENT MAN 1 % (0-0); MONOCYTES ABSOLUTE MAN 1.05 K/mm3 (0.16-1.47); MONOCYTES PERCENT MAN 10 % (4-13); MYELOCYTE ABSOLUTE MAN 0.21 K/mm3 (0.00-0.00); MYELOCYTE PERCENT MAN 2 % (0-0); NEUTROPHILS ABSOLUTE MAN 7.59 K/mm3 (1.96-9.15); SEG NEUTROPHILS PERCENT MAN 71 % (41-73); TOTAL CELLS COUNTED 100
--- NOTE | 2024-08-21 06:54 | NUR ---
SHIFT SUMMARY PT HAS TOLERATED SHIFT WELL WITH NO REAL CHANGES TO STATUS. WILL CONTINUE TO MONITOR UNTIL REPORT PASSED TO DAY SHIFT.
[2024-08-21] MEDS ORDERED: Potassium Phosphate Dibasic 30 MM in Dextrose 5% 500 ML IV STA (08:05)
[2024-08-21] MEDS ORDERED: Iron Dextran 50 MG / ML 2ML Vial IV ONE (09:00)
[2024-08-21] MEDS ORDERED: Iron Dextran 975 MG in NS 250 ML IV ONE (10:00)
--- NOTE | 2024-08-21 10:51 | NUR ---
1HR INFED TRIAL PATIENT TOLERATED WELL NO S/SX OF ANAPHYLACTIC REACTION. NO VISIBLE RASH, RESPIRATORY RATE 16-18 DENIES ANY SOB OR DIFFICULTY BREATHING. PHARMACY NOTIFIED, PLAN FOR IV INFUSION.
--- NOTE | 2024-08-21 16:30 | NUR ---
SHIFT SUMMARY PATIENT REMAINS AWAKE AND ALERT. A BIT MORE DROWSY THIS MORNING BUT AT HIS BASELINE. ABLE TO RESPOND YES/NO TO QUESTIONS AND CLEARLY EXPRESSED HE WAS MAD TODAY HIS SPOUSE HAS BEEN RUNNING ERRANDS. PUPILS REMAIN SLUGGISH. FOLLOWS COMMANDS ABLE TO MOVE LUE, GAVE THUMBS UP TODAY. Q2 TURNS. SOME DELAY IN TURNS TODAY PATIENT HAD TO BE APPROACHED 2-3 TIMES TO AGREE TO TURN. ALL LIMBS REMAIN CONTRACTED. OCCASIONAL COUGH THAT IS WEAK. MINIMAL AMT EXPECTORATED, CLEAR/FOAMY. BIBASILAR COARSE CRACKLES WELL RUL, RML.O2 SATS REMAIN ABOVE 95% ON RA. RECTAL BAG IN PLACE CHANGED AT 1500 DRAINING BROWN LIQUID STOOL TRANSITIONING TO SEMI FORMED. MALE PURE WICK IN PLACE, IMPRESSIVE AMOUNT OF UOP TODAY 1700 SO FAR. MEPLIEX DRESSING TO R HIP AND L GLUTEAL CHANGED TODAY. L HIP MEPLIEX C/D/I. INTO VISIT TODAY. REPLACED PHOS AND ADMINISTERED IRON VIA IV HE REMAINS FREE OF ANY S/SX OF ANAPHYLAXIS FOLLOWING THE INFUSION. HE IS CURRENTLY UPSET THAT HIS SPOUSE IS NOT PRESENT STATING HE IS MAD. PATIENT TO TRANSFER TO PCU 11 AFTER REPORT GIVEN.
[2024-08-22 03:59] LABS: BASOPHILS ABSOLUTE AUTO 0.04 K/mm3 (0.00-0.23); BASOPHILS PERCENT AUTO 0 % (0-2); EOSINOPHILS PERCENT AUTO 2 % (0-6); Hematocrit 26.9 % (37.0-53.0); IMMATURE GRAN ABSOLUTE AUTO 0.53 K/mm3 (0.00-0.10); IMMATURE GRAN PERCENT AUTO 4 % (0-1); LYMPHOCYTES ABSOLUTE AUTO 1.88 K/mm3 (0.84-5.20); LYMPHOCYTES PERCENT AUTO 15 % (21-46); MONOCYTES ABSOLUTE AUTO 1.28 K/mm3 (0.16-1.47); MONOCYTES PERCENT AUTO 10 % (4-13); Mean Corpuscular HGB Conc 33.5 g/dL (31.5-36.5); Mean Corpuscular Volume 84 fL (80-100); NEUTROPHILS ABSOLUTE AUTO 8.36 K/mm3 (1.96-9.15); NEUTROPHILS PERCENT AUTO 68 % (41-73); Platelet Count 580 K/mm3 (150-400); RDW Coefficient Variation 16.4 % (11.7-14.2); RDW Standard Deviation 48.8 fL (35.1-46.3); Red Blood Cell Count 3.22 M/mm3 (4.30-5.90); White Blood Cell Count 12.29 K/mm3 (4.00-11.30)
[2024-08-22 04:12] LABS: Bun/Creatinine Ratio 82.3 (12.0-20.0); Calcium, Blood 7.7 mg/dL (8.5-10.1); Creatinine, Blood 0.33 mg/dL (0.60-1.20); Magnesium, Blood 1.6 mg/dL (1.6-2.4); Phosphorus, Blood 1.7 mg/dL (2.5-4.9); Potassium, Blood 4.2 mmol/L (3.5-5.5)
[2024-08-22 04:44] VITALS: BP 111/77
--- NOTE | 2024-08-22 06:05 | NUR ---
SHIFT SUMMARY PT ALERT AND ORIENTED TO SELF AND TO HIS WHO REMAINED A BESIDE. PT DENIED PAIN. ABLE TO MUMBLE YES AND NO, NOD OR SHAKE HEAD AT TIMES TO ANSWER QUESTIONS. HE IS ABLE TO SQUEEZE MY HAND WITH HIS LEFT HAND. ON CONTINUOUS TELEMETRY. BPS soft IN 100 S, HR IN 80 S-90 S. PT DENIES CHEST PAIN/PRESSURE. PULSES FAINT/THREADY. ON RA, SATTING ABOVE 95%. PT HAS PEG TUBE AND JEVITY FEEDINGS AT 45L/HR WITH 100ML FLUSH Q2. PT KEPT UPRIGHT AT [address] DE[address] ANGLE. PUREWICK IN PLACE AND DRAINING TO SUCTION. FECAL COLLECTION BAG IN PLACE AND DRAINING BLACK, LIQUID STOOL TO GRAVITY. BOTH PUREWICK AND FECAL BAG REPLACED THIS SHIFT. PT REMAINS NPO AT THIS TIME. PT HAS PRESSURE WOUND ON HIPS, COVERED WITH MEPILEX, BOTH BANDAGES CHANGED THIS SHIFT. REPOSITIONED Q2. HEEL PROTECTORS IN PLACE. PT CACHECTIC AND CONTRACTED IN ALL EXTREMITIES WITH SLIGHT MOBILITY IN LEFT ARM. IV BEGAN LEAKING, IV REMOVED, POWERGLIDE PLACED, PATENT AND DRAWS BLOOD. CAREGIVER BECAME INCREASINGLY AGITATED AND AGGRESSIVE OVER THE COURSE OF THE SHIFT, INTERFERING WITH CARE AT TIMES, CURSING AND NAME CALLING THIS RN FOR VARIOUS REASONS. CAKE PRESS OPERATOR HELPER NOTIFIED. CARE CONTINUED.
[2024-08-22 09:48] VITALS: BP 113/75
[2024-08-22 13:30] VITALS: BP 113/71
[2024-08-22] MEDS ORDERED: Potassium Phosphate Dibasic 30 MM in Dextrose 5% 500 ML IV STA (15:10)
[2024-08-22 15:40] VITALS: BP 123/77
--- NOTE | 2024-08-22 15:45 | NUR ---
PT'S MOM CALLED PCU CHARGE NURSE TODAY, STATES SHE IS HOPEFUL SOMEONE WILL "SIT DOWN AND TELL HILDA THAT TIFFANIE IS DYING." THIS WAS DISCUSSED BY ETHICS AND CARE TEAM. THE PATIENT CAN VERBALLY AUTHORIZE HILDA TO BE HIS DECISION-MAKER BUT IF PT BECOMES OBTUNDED OR NO LONGER ABLE TO VERBALIZE HIS WISHES, HIS MOM WOULD BECOME HIS DECISION-MAKER. MET WITH PT'S S/O HILDA. SHE WAS TEARFUL, STATED SHE GETS VERY ANXIOUS BEING IN THE HOSPITAL, AND STATES TIFFANIE DOES TOO. SHE STATED SHE IS TIRED OF PEOPLE ASKING FOR "PROOF" THAT SHE IS TO TIFFANIE. PRIOR TO THIS MEETING, MET WITH TIFFANIE WHO APPEARS TO BE AT HIS BASELINE, ABLE TO VERBALIZE HIS WISH FOR S/O HILDA TO BE HIS DECISION MAKER. WE DISCUSSED PT'S CODE STATUS ALONG WITH HOSPICE. SHE REMAINED TEARFUL BUT WAS OPEN TO DISCUSSING HOSPICE VS CONTINUING WITH TREATMENT THAT IS BECOMING FUTILE. SHE STATES SHE WILL DISCUSS THIS WITH THE PATIENT.
--- NOTE | 2024-08-22 18:57 | NUR ---
SHIFT SUMMARY: NEURO: NO ACUTE CHANGES CARDIAC: NO ACUTE CHANGES RESP: NO ACUTE CHANGES GI/: MALE PUREWICK REMAINS IN PLACE. PT HAS RECTAL BAG THAT IS DRAINING LIQUID STOOL. PT HAS A PEG TUBE THAT HAS CONTINUOUS JEVITY 2.1 FEEDING WITH Q2 100ML FLUSHES. PT HAS BEEN TOLERATING FEEDINGS WELL. CAREGIVER WAS TALKED TO ABOUT HER BEHAVIOR TOWARDS STAFF AND STATES THAT HER BEHAVIOR WILL BE MORE APPROPRIATE FROM HERE ON. NO OTHER SIGNIFICANT EVENTS HAPPENED DURING THIS SHIFT. WILL CONTINUE TO CARE FOR PT TILL END OF SHIFT.
[2024-08-22 19:57] VITALS: BP 123/82
[2024-08-23 03:32] VITALS: BP 113/70
--- NOTE | 2024-08-23 04:42 | NUR ---
SHIFT SUMMARY. SHIFT HAS BEEN MOSTLY UNREMARKABLE. PT HAS BEEN ABLE TO REST COMFORTABLY THROUGHOUT MUCH OF SHIFT. Q2 HOUR REPOSITIONS. PT HAS CONSISTENTLY BEEN ABLE TO ANSWER YES/NO QUESTIONS VIA HEAD NODS/SHAKES. DIFFICULTY HAS PRESENTED FEW TIMES WITH PT PARTNER SHE HAS ATTEMPTED TO MAKE NEEDS KNOWN ON PATIENTS BEHALF THAT HE HIMSELF HAS CONTRADICTED. PT THUS FAR APPEARS TOTALLY CAPABLE OF MAKING NEEDS KNOWN APPROPRIATELY DESPITE SPEECH MORE OFTEN THAN NOT BEING TOTALLY INDISCERNIBLE. EARLY IN SHIFT, RECTAL BAG FAILED X2 AND REQUIRED SEAL TO BE PEELED OFF IN ORDER TO REPLACE. AFTER SECOND FAILURE, CONTEMPLATED PUTTING IN RECTAL TUBE D/T FREQUENT MUCOUSY BMs. PRESENTED THIS OPTION TO PT AND HE REFUSED, OPTING INSTEAD FOR MORE FREQUENT BED CHANGES. VITALS HAVE BEEN STABLE THROUGHOUT SHIFT. RUNNING SINUS THROUGHOUT SHIFT. MAINTAINING ADEQUATE SATURATION THROUGHOUT SHIFT. PT HAS DENIED PAIN THUS FAR. TUBE FEEDING RUNNING THROUGHOUT SHIFT AT GOAL RATE OF 45 MLS/HR, CHANGED BAGS AND TUBING AT ~0330. ABX ADMINISTERED ON SCHEDULE AND WITHOUT DIFFCIULTY. BED LOCKED IN LOWEST POSITION. CONTINUING TO MONITOR.
[2024-08-23 08:09] VITALS: BP 105/78
[2024-08-23] MEDS ORDERED: Ciprofloxacin 500 MG Tab PT SCH (09:00)
[2024-08-23] MEDS ORDERED: Citalopram Hydrobromide 10 MG TAB PT SCH (09:00)
--- NOTE | 2024-08-23 10:00 | NUR ---
UPDATE DR. BURTON IN TO ROUND ON PATIENT. PLAN TO POSSIBLY DISCHARGE TOMORROW 08/24. PATIENT MADE MEDICAL NO TELE AT THIS TIME. 1030 PATIENT'S SIGNIFCANT OTHER OUT TO CHARGE NURSE DESK REQUESTING PATIENT TO BE DISCHARGED TODAY. SIGNIFICANT OTHER REQUESTING TO SPEAK WITH ANNE FROM CARE MANAGEMENT REGARDING DISCHARGE PLAN.
[2024-08-23] MEDS ORDERED: Athenol325 MG PT (13:56)
[2024-08-23] MEDS ORDERED: CITALOPRAM HBR10 MG PT (13:56)
[2024-08-23] MEDS ORDERED: JUVEN PACKET1 EAC3 PT (13:57)
[2024-08-23] MEDS ORDERED: ONELAX DOC50 MG/5 ML PT (13:58)
[2024-08-23] MEDS ORDERED: ERGOCALCIFEROL PT (13:59)
[2024-08-23] MEDS ORDERED: XARELTO20 MG PT (14:34)
[2024-08-23] MEDS ORDERED: VISBIOME 112.51 EACH PT (14:37)
[2024-08-23] MEDS ORDERED: Vancomycin500 MG/100 PT (14:37)
[2024-08-23] MEDS ORDERED: CIPRO250 MG/5 M PT (14:41)
[2024-08-23 17:17] VITALS: BP 114/85
--- NOTE | 2024-08-23 17:35 | NUR ---
DISCHARGE DISCHARGE PACKET DISCUSSED WITH SIGNIFICANT OTHER HILDA AT BEDSIDE. PATIENT TRANSPORTED VIA EMS HOME. HILDA PACKED ALL PATIENT'S BELONGINGS. PATIENT ALERT, SEEMS TO BE AT BASELINE. ABLE TO ANSWER YES AND NO, OCCASIONAL WHISPER ANSWERS TO QUESTIONS. BP STABLE. REMAINED ON RA. DENIED PAIN T/O SHIFT. REPOSITIONED Q2. PEG TUBE FLUSHED AND CLAMPED FOR TUBE FEED. PATIENT PLACED IN ATTENDS AND CHANGED INTO HOME CLOTHES. ALL OTHER LINES REMOVED.
[2024-08-23] MEDS ORDERED: Banana Flakes/Tos 1 EA Powder Pack PT SCH (21:00)
[2024-08-24] MEDS ORDERED: Protein Supplement 30 ML UD PT SCH (09:00)
== END 2024-08-23 17:37 | disposition home health service (06) | DRG 177 ==
LOC: ER 11:08 → ICUE 16:41 → MEDS 08-16 17:43 → PCU 08-17 15:39 → ICUE 08-18 13:11 → PCU 08-21 17:50
PROVIDERS: Internal Medicine; Internal Medicine Critical Care Medicine; Student in an Organized Health Care Education/Training Program; ADMIT Internal Medicine
PROC: 30233N1 Transfusion of Nonautologous Red Blood Cells into Peripheral Vein, Percutaneous Approach (ICD-10-PCS; 2024-08-14)
PROC: 0DH67UZ Insertion of Feeding Device into Stomach, Via Natural or Artificial Opening (ICD-10-PCS; 2024-08-14)
PROC: 3E0G76Z Introduction of Nutritional Substance into Upper GI, Via Natural or Artificial Opening (ICD-10-PCS; 2024-08-14)
PROC: 3E03329 Introduction of Other Anti-infective into Peripheral Vein, Percutaneous Approach (ICD-10-PCS; 2024-08-15)
PROC: 5A09457 Assistance with Respiratory Ventilation, 24-96 Consecutive Hours, Continuous Positive Airway Pressure (ICD-10-PCS; principal; 2024-08-17)
DX: U07.1 COVID-19 (principal); E43 Unspecified severe protein-calorie malnutrition; I26.99 Other pulmonary embolism without acute cor pulmonale; L89.153 Pressure ulcer of sacral region, stage 3; L89.223 Pressure ulcer of left hip, stage 3; L89.213 Pressure ulcer of right hip, stage 3; L89.893 Pressure ulcer of other site, stage 3; R53.2 Functional quadriplegia; J96.01 Acute respiratory failure with hypoxia; R57.1 Hypovolemic shock; J69.0 Pneumonitis due to inhalation of food and vomit; N17.9 Acute kidney failure, unspecified; R64 Cachexia; B49 Unspecified mycosis; E87.0 Hyperosmolality and hypernatremia; D62 Acute posthemorrhagic anemia; K51.30 Ulcerative (chronic) rectosigmoiditis without complications; E87.1 Hypo-osmolality and hyponatremia; Z16.39 Resistance to other specified antimicrobial drug; A04.72 Enterocolitis due to Clostridium difficile, not specified as recurrent; Z68.1 Body mass index [BMI] 19.9 or less, adult; E87.22 Chronic metabolic acidosis; J15.69 Pneumonia due to other Gram-negative bacteria; J15.0 Pneumonia due to Klebsiella pneumoniae; G35 Multiple sclerosis; F32.A Depression, unspecified; I10 Essential (primary) hypertension; E87.6 Hypokalemia; K21.9 Gastro-esophageal reflux disease without esophagitis; E83.39 Other disorders of phosphorus metabolism; E86.0 Dehydration; B96.20 Unspecified Escherichia coli [E. coli] as the cause of diseases classified elsewhere; Z87.891 Personal history of nicotine dependence; Z79.2 Long term (current) use of antibiotics; Z88.0 Allergy status to penicillin; Z79.899 Other long term (current) drug therapy; Z98.890 Other specified postprocedural states; Z74.01 Bed confinement status
CPT/HCPCS: 0241U; 0528U; 31720; 36415; 36430; 51702; 71045; 71260; 74177; 80048; 80053; 80069; 81001; 82274; 82728; 82803; 82947; 83540; 83550; 83605; 83735; 84100; 84145; 85014; 85018; 85025; 85027; 85049; 85520; 85610; 85730; 86850; 86900; 86901; 86923; 87040; 87070; 87077; 87086; 87106; 87186; 87205; 87324; 87507; 93005; 93010; 93306; 94640; 94660; 94664; 94760; 94762; 96361; 96374-59; 96375; 99285-25; A9270; J0692; J1100; J1644; J1650; J1750; J1956; J2060; J2185; J2248; J2405; J7030; J7040; J7050; J7060; J7070; J7120; P9016; Q9967

== ENCOUNTER 2024-10-24 18:35 | Emergency (ER) | payer MEDICARE, OTHER ==
[~2024-10-24] VITALS: Ht 172.7 cm; Wt 40.8 kg
[~2024-10-24 18:35] MED LIST changes: +Athenol325 MG PT; +CIPRO250 MG/5 M PT; +CITALOPRAM HBR10 MG PT; +ERGOCALCIFEROL PT; +JUVEN PACKET1 EAC3 PT; +METOCLOPRAMIDE PT; +ONELAX DOC50 MG/5 ML PT; +Potassium Chl 20MEQ/Water100ML 100 ML IV ONE; +VISBIOME 112.51 EACH PT; +Vancomycin500 MG/100 PT; +XARELTO20 MG PT
[2024-10-24 20:58] LABS: Hematocrit 37.6 % (37.0-53.0); Hemoglobin 12.1 g/dL (13.5-17.5); Mean Corpuscular HGB 27.4 pg (26.0-34.0); Mean Corpuscular HGB Conc 32.2 g/dL (31.5-36.5); Mean Corpuscular Volume 85 fL (80-100); Mean Platelet Volume 9.4 fL (9.1-12.4); Platelet Count 233 K/mm3 (150-400); RDW Coefficient Variation 16.5 % (11.7-14.2); RDW Standard Deviation 51.7 fL (35.1-46.3); Red Blood Cell Count 4.42 M/mm3 (4.30-5.90); White Blood Cell Count 6.87 K/mm3 (4.00-11.30)
[2024-10-24 21:16] LABS: Albumin, Blood 2.6 g/dL (3.4-5.0); Albumin/Globulin Ratio 0.6 (0.8-1.8); Bilirubin, Total 0.2 mg/dL (0.1-1.0); Bun/Creatinine Ratio 75.6 (12.0-20.0); Calcium, Blood 8.7 mg/dL (8.5-10.1); Creatinine, Blood 0.75 mg/dL (0.60-1.20); Globulin, Blood 4.1 g/dL (2.2-4.0); Potassium, Blood 3.2 mmol/L (3.5-5.5); Total Protein, Blood 6.7 g/dL (6.4-8.2)
[2024-10-24 21:49] LABS: BAND PERCENT MAN 6 % (0-8); BASOPHILS PERCENT MAN 0 % (0-2); EOSINOPHILS PERCENT MAN 0 % (0-6); LYMPHOCYTES ABSOLUTE MAN 0.41 K/mm3 (0.84-5.20); LYMPHOCYTES PERCENT MAN 6 % (21-46); MONOCYTES ABSOLUTE MAN 0.68 K/mm3 (0.16-1.47); MONOCYTES PERCENT MAN 10 % (4-13); NEUTROPHILS ABSOLUTE MAN 5.77 K/mm3 (1.96-9.15); SEG NEUTROPHILS PERCENT MAN 78 % (41-73); TOTAL CELLS COUNTED 100
[2024-10-24] MEDS ORDERED: NS 1,000 ML IV SCH (23:45)
[2024-10-25 00:07] LABS: Magnesium, Blood 2.5 mg/dL (1.6-2.4)
[2024-10-25 01:42] LABS: Hematocrit 37.1 % (37.0-53.0)
[2024-10-25] MEDS ORDERED: Potassium Chl 20MEQ/Water100ML 100 ML IV ONE (01:55)
[2024-10-25 01:57] LABS: International Normalized Ratio 0.95; Prothrombin Time Results 10.2 Sec (9.7-11.5)
[2024-10-25] MEDS ORDERED: NS 1,000 ML IV SCH (05:20)
[2024-10-25 08:18] LABS: Base Excess Venous 0.8 mmol/L; Bicarbonate Venous 25.2 mmol/L (24.0-30.0); PCO2 Venous 38.3 mmHg (38-42); pH Blood Venous 7.43 (7.34-7.37)
[2024-10-25] MEDS ORDERED: Lactated Ringer's 1,000 ML IV ONE (08:25)
[2024-10-25 11:00] VITALS: BP 75/61
== END 2024-10-25 11:50 | disposition home or self-care (01) ==
LOC: ER 18:35
PROVIDERS: Emergency Medicine; Student in an Organized Health Care Education/Training Program
DX: S00.512A Abrasion of oral cavity, initial encounter (principal); Z88.0 Allergy status to penicillin; Z79.01 Long term (current) use of anticoagulants; Z79.2 Long term (current) use of antibiotics; Z79.899 Other long term (current) drug therapy; Z91.018 Allergy to other foods; X58.XXXA Exposure to other specified factors, initial encounter
CPT/HCPCS: 51798; 70450; 71045; 80053; 82140; 82803; 83605; 83735; 85014; 85018; 85025; 85610; 85730; 86850; 86900; 86901; 96361; 96365; 99284-25; A6590; J3480; J7030; J7120

== ENCOUNTER 2024-12-24 21:57 | Emergency (ER) | payer MEDICARE, OTHER ==
[~2024-12-24] VITALS: Ht 152.4 cm; Wt 43.1 kg
[~2024-12-24 21:57] MED LIST changes: -Potassium Chl 20MEQ/Water100ML 100 ML IV ONE
[2024-12-25 01:30] VITALS: BP 107/84
== END 2024-12-25 01:54 | disposition home or self-care (01) ==
LOC: ER 21:57
DX: K94.23 Gastrostomy malfunction (principal); Z79.899 Other long term (current) drug therapy; Z88.0 Allergy status to penicillin
CPT/HCPCS: 43762; 49465; 99283-25; Q9963